=== PATIENT | female | born 1950 | race Caucasian/White ===

== ENCOUNTER 2019-02-09 16:01 | Emergency (ER) | payer MEDICARE ==
[~2019-02-09] VITALS: Ht 162.6 cm; Wt 86.2 kg
[~2019-02-09 16:01] MED LIST: ALPR.5T PO; CARV6.252 PO; CLON1PAT14; DICY10CA26 PO; EZET10TA5; FENO135C PO; FLC100T1 PO; HCT25T PO; NEBI2.5T5; NF-ESOM40C; NITR100C3 PO; NYST1000 PO; PHEN16.297 PO; PRM25T PO; SIMV10TA3 PO; [UNRECOGNIZED DRUG - REMARK]; bystolic; clonidine; nexium; zetia
[2019-02-09] MEDS ORDERED: ONDANSETRON 4 MG/2 ML (SDV) Z0FRAN IVP ONE ×2 (16:15→20:45)
[2019-02-09] MEDS: NS IV 1000 ML 1,000 ML IV SCH ×2 (16:20→17:20)
--- NOTE | 2019-02-09 16:37 | ED Abdominal Pain ---
General Stated Complaint: ABD PAIN, NAUSEA, VOMITING, LOOSE STOOLS Source of Information: Patient, Family Exam Limitations: No Limitations (CHRISTINA AGUILAR MD) History of Present Illness Date Seen by Provider: Feb 09, 2019 Time Seen by Provider: 16:33 Initial Comments 68-year-old white female presents with a complaint of 10 days of progressive dysuria and back pain. In addition patient has had nausea and vomiting. Her stools have been loose. The patient has had a kidney transplant. He's had previous pancreatitis. (CHRISTINA AGUILAR MD) Allergies and Home Medications Allergies Coded Allergies: amlodipine (Verified Allergy, Unknown, 02/09/19) Home Medications Alprazolam 0.5 Mg Tablet, 0.5 MG PO Q6H PRN, (Reported) Carvedilol 6.25 Mg Tablet, 12.5 MG PO BID, (Reported) Patient Home Medication List Home Medication List Reviewed: Yes (CHRISTINA AGUILAR MD) Review of Systems Review of Systems Constitutional: see HPI, chills, fever, malaise EENTM: No Blurred Vision, No Ear Pain Respiratory: Denies Cough Cardiovascular: Denies Chest Pain Gastrointestinal: Abdominal Pain, Diarrhea, Nausea, Vomiting Genitourinary: Burning, Frequency, Flank Pain Musculoskeletal: see HPI, back pain Skin: No rash Psychiatric/Neurological: No Symptoms Reported Endocrine: No Symptoms Reported Hematologic/Lymphatic: No Symptoms Reported (CHRISTINA AGUILAR MD) Past Tazxgxm-Gbyapn-[id number] Hx Past Med/Social Hx: Reviewed Nursing Past Med/Soc Hx (CHRISTINA AGUILAR MD) Patient Social History Recent Foreign Travel: No Contact w/Someone Who Travel: No (CHRISTINA AGUILAR MD) Past Medical History Reproductive Disorders: No (CHRISTINA AGUILAR MD) Physical Exam Vital Signs Vital Signs - First Documented 02/09/19 16:10 Temp 98.7 Pulse 88 Resp 16 B/P (MAP) 143/68 (93) Pulse Ox 93 O2 Delivery Room Air (MEGAN ULLOA MD) Vital Signs Capillary Refill : (CHRISTINA AGUILAR MD) Height/Weight/BMI Height: '" Weight: lbs. oz. kg; BMI Method: General Appearance: WD/WN, mild distress HEENT: normal ENT inspection Neck: full range of motion, supple Respiratory: lungs clear Cardiovascular: regular rate, rhythm Gastrointestinal: tenderness (diffuse) Extremities: normal range of motion, non-tender Back: normal inspection Neurologic/Psychiatric: no motor/sensory deficits, alert, normal mood/affect Skin: normal color, warm/dry; No rash (CHRISTINA AGUILAR MD) Gastrointestinal: tenderness (diffuse) (MEGAN ULLOA MD) Focused Exam Sepsis Stage: Sepsis Possible Source: Genitouriary Lactate Level 02/09/19 17:15: Lactic Acid Level 2.11*H (MEGAN ULLOA MD) Time of Focused Exam: 18:45 Respiratory: Lungs Clear, Normal Breath Sounds, No Accessory Muscle Use Cardiovascular: Regular Rate, Rhythm, Normal Peripheral Pulses Capillary Refill: Less Than 3 Seconds Skin: normal color, warm/dry Lactic Acid Level Laboratory Tests Test 02/09/19 17:15 Lactic Acid Level 2.11 MMOL/L (0.50-2.00) *H (MEGAN ULLOA MD) Within 3hrs of presentation: Admin fluids, Blood cultures prior to ABX's, Focus exam, Lactate level (MEGAN ULLOA MD) Progress/Results/Core Measures Results/Orders Lab Results Laboratory Tests Test 02/09/19 17:15 02/09/19 18:10 Range/Units White Blood Count 11.6 H 4.3-11.0 10^3/uL Red Blood Count 4.51 4.35-5.85 10^6/uL Hemoglobin 12.9 11.5-16.0 G/DL Hematocrit 39 35-52 % Mean Corpuscular Volume 86 80-99 FL Mean Corpuscular Hemoglobin 29 25-34 PG Mean Corpuscular Hemoglobin Concent 33 32-36 G/DL Red Cell Distribution Width 14.1 10.0-14.5 % Platelet Count 93 L 130-400 10^3/uL Mean Platelet Volume 10.8 H 7.4-10.4 FL Neutrophils (%) (Auto) 77 H 42-75 % Lymphocytes (%) (Auto) 13 12-44 % Monocytes (%) (Auto) 10 0-12 % Eosinophils (%) (Auto) 0 0-10 % Basophils (%) (Auto) 0 0-10 % Neutrophils # (Auto) 8.9 H 1.8-7.8 X 10^3 Lymphocytes # (Auto) 1.6 1.0-4.0 X 10^3 Monocytes # (Auto) 1.1 H 0.0-1.0 X 10^3 Eosinophils # (Auto) 0.0 0.0-0.3 10^3/uL Basophils # (Auto) 0.0 0.0-0.1 10^3/uL Sodium Level 136 135-145 MMOL/L Potassium Level 3.9 3.6-5.0 MMOL/L Chloride Level 95 L 98-107 MMOL/L Carbon Dioxide Level 25 21-32 MMOL/L Anion Gap 16 H 5-14 MMOL/L Blood Urea Nitrogen 18 7-18 MG/DL Creatinine 1.03 0.60-1.30 MG/DL Estimat Glomerular Filtration Rate 53 BUN/Creatinine Ratio 17 Glucose Level 233 H 70-105 MG/DL Lactic Acid Level 2.11 *H 0.50-2.00 MMOL/L Calcium Level 10.1 8.5-10.1 MG/DL Corrected Calcium 9.9 8.5-10.1 MG/DL Total Bilirubin 1.6 H 0.1-1.0 MG/DL Aspartate Amino Transf (AST/SGOT) 17 5-34 U/L Alanine Aminotransferase (ALT/SGPT) 28 0-55 U/L Alkaline Phosphatase 68 40-136 U/L Total Protein 6.8 6.4-8.2 GM/DL Albumin 4.2 3.2-4.5 GM/DL Lipase 20 8-78 U/L Urine Color YELLOW Urine Clarity CLOUDY H Urine pH 6.0 5-9 Urine Specific [place] 1.015 L 1.016-1.022 Urine Protein NEGATIVE NEGATIVE Urine Glucose (UA) NEGATIVE NEGATIVE Urine Ketones NEGATIVE NEGATIVE Urine Nitrite POSITIVE H NEGATIVE Urine Bilirubin NEGATIVE NEGATIVE Urine Urobilinogen 0.2 NORMAL MG/DL Urine Leukocyte Esterase 1+ H NEGATIVE Urine RBC (Auto) 2+ H NEGATIVE Urine RBC 5-10 H /HPF Urine WBC 50-100 H /HPF Urine Squamous Epithelial Cells NONE /HPF Urine Crystals NONE /LPF Urine Bacteria 4+ /HPF Urine Casts NONE /LPF Urine Mucus NEGATIVE /LPF Urine Culture Indicated YES (MEGAN ULLOA MD) My Orders Orders - MEGAN ULLOA MD Ns Iv 1000 Ml (Sodium Chloride 0.9%) (02/09/19 19:00) Ciprofloxacin Iv 400mg/200ml (Cipro Iv S (02/09/19 19:30) Ns Iv 1000 Ml (Sodium Chloride 0.9%) (02/09/19 19:30) Morphine Injection (Morphine Injection (02/09/19 19:27) Vancomycin Injection (Vancomycin Injecti (02/09/19 20:00) Piperacillin/Tazobactam (Bulk) (Zosyn In (02/09/19 20:00) Ondansetron Injection (Zofran Injectio (02/09/19 20:45) Acetaminophen Tablet (Tylenol Tablet) (02/09/19 20:45) Piperacillin Sodium/Tazobactam (Zosyn Vi (02/09/19 20:46) Water (Sterile) For Injection (Sterile W (02/09/19 20:46) Ns (Ivpb) (Sodium Chloride 0.9% Ivpb Bag (02/09/19 20:46) Vancomycin Injection (Vancomycin Injecti (02/09/19 21:20) Water (Sterile) For Injection (Sterile W (02/09/19 21:20) Ns (Ivpb) (Sodium Chloride 0.9%) (02/09/19 21:20) (MEGAN ULLOA MD) Medications Given in ED Current Medications Medications Dose Ordered Sig/Omid Route Start Time Stop Time Status Last Admin Dose Admin Acetaminophen 1,000 mg ONCE ONCE PO 02/09/19 20:45 02/09/19 20:46 DC 02/09/19 21:32 1,000 MG Ciprofloxacin/ Dextrose 200 ml @ 200 mls/hr ONCE ONCE IV 02/09/19 19:30 02/09/19 20:29 DC 02/09/19 19:41 200 MLS/HR Ondansetron HCl 4 mg ONCE ONCE IVP 02/09/19 16:15 02/09/19 16:16 DC 02/09/19 17:25 4 MG Ondansetron HCl 4 mg ONCE ONCE IVP 02/09/19 20:45 02/09/19 20:46 DC 02/09/19 20:42 4 MG Piperacillin Sod/ Tazobactam Sod 4.5 gm/Sodium Chloride 120 ml @ 240 mls/hr ONCE ONCE IV 02/09/19 20:00 02/09/19 20:29 DC 02/09/19 21:00 240 MLS/HR (MEGAN ULLOA MD) Vital Signs/I&O 02/09/19 02/09/19 02/09/19 16:10 21:32 21:43 Temp 98.7 101.5 101.5 Pulse 88 115 Resp 16 16 B/P (MAP) 143/68 (93) 139/57 (84) Pulse Ox 93 94 O2 Delivery Room Air 02/10/19 00:00 Intake Total 3320 ml Balance 3320 ml (MEGAN ULLOA MD) Progress Progress Note #1: Time: 18:45 Progress Note I assumed care of the patient from Dr. Aguilar at shift change. Pt had labs coming back showing that she had elevated WBC count and mild elevation of her Lactic acid to 2.11. Her urine also came back showing 4+ bacteria with 50-100 WBC and Nitrites consistent with UTI. Considering that she is a kidney transplant patient and is immunocompromised will give antibiotics and anticipate transfer to [place] provided her Nephrology doctors there are ok with managing her infected transplanted kidney. Her transplant was done in 2016 at [facility], but she has been following with Dr. Nuñez at [facility] in [place] since then for managing her kidney. Progress Note #2: Time: 19:25 Progress Note page placed for Nephrology and Dr. Arias is the immigration specialist doctor for [facility] covering for Dr. Nuñez. She called back and since pt has been stable hemodynamically and has a stable Cr of 1.04 she felt if the patient was wanting to come to [place] we could get her transferred down here. I had wanted to make sure the Nephrology service was ok with consulting on her care before speaking with the Hospitalist service for transfer. That way if they felt she needed the actual Transplant service hospital instead she would not have to immediately be transferred back up to from [place]. She did request the antibiotic coverage be broadened to Vancomycin and Zosyn from just the Cipro that was initially ordered. After speaking with Dr. Arias, Dr. Cuevas with the Hospitalist service was paged for the transfer. Progress Note #3: Time: 19:[address] Cuevas called back and accepted the patient in transfer. Will continue with IVF and antibiotics. Progress Note #4: Time: 20:30 Progress Note Her Fever went up to 101.7F and her heart rate went up to 117 so she was getting additional IVF bolus as well as a dose of acetaminophen was ordered. She did have some nausea as the antibiotics were infusing so a repeat dose of Zofran was given. Will plan to continue IV fluids with the antibiotics as she is transferred to [place]. (MEGAN ULLOA MD) Departure Impression Primary Impression: Cystitis without hematuria Additional Impression: Kidney transplant infection Disposition: 02 XFER SHT-TRM HOSP Condition: Stable Transfer Time Spoke to Accepting Phy: 19:[address] Cuevas with Hospitalist service accepted pt for transfer and I spoke with Dr. Arias with Nephrology who is covering for Dr. Nuñez to make sure that they are comfortable consulting on the patient since she is a kidney transplant patient. Dr. Arias did request the patient get broad spectrum antibiotic coverage of Vancomycin as well as Zosyn instead of just the Cipro based on her last urine culture from 2017. Transfer Facility: [facility] in [facility], [place], operated by [facility] Method of Transfer: EMS (MEGAN ULLOA MD) Departure-Patient Inst. Referrals: GARRETT BERG MD (PCP) Primary Care Physician CHRISTINA AGUILAR MD Feb 09, 2019 16:37 MEGAN ULLOA MD Feb 09, 2019 19:47
--- NOTE | 2019-02-09 17:15 | NUR ---
FROM [id number] IV ATTEMPTS TRIED IN BILATERAL PERIPHERAL SITES; 4 ATTEMPTS PER THIS [employer] TRAFFIC CONTROL SPECIALIST (AC'S, HANDS), 2 ATTEMPTS PER INO JOHN (FAILED IN LEFT EJ AND RAC). STARTED PER DR RUIZ TO RIGHT EJ WITH SOME DIFFICULTY THREADING INITIALLY. LABS DRAWN AT THIS TIME. PT WITH HYSTERONICS, HYPERVENTILATING AND BECOMING NAUSEATED.
[2019-02-09 17:35] LABS: HEMATOCRIT 39 % (35-52); HEMOGLOBIN 12.9 G/DL (11.5-16.0); MEAN CORPUSCULAR HEMOGLOBIN 29 PG (25-34); MEAN CORPUSCULAR HGB CONC 33 G/DL (32-36); MEAN CORPUSCULAR VOLUME 86 FL (80-99); PLATELET COUNT 93 10^3/uL (130-400); RED CELL DISTRIBUTION WIDTH 14.1 % (10.0-14.5); WHITE BLOOD COUNT 11.6 10^3/uL (4.3-11.0)
[2019-02-09 17:36] LABS: BASOPHILS % (AUTO) 0 % (0-10); EOSINOPHILS % (AUTO) 0 % (0-10); LYMPHOCYTES # (AUTO) 1.6 X 10^3 (1.0-4.0); LYMPHOCYTES % (AUTO) 13 % (12-44); MEAN PLATELET VOLUME 10.8 FL (7.4-10.4); MONOCYTES # (AUTO) 1.1 X 10^3 (0.0-1.0); MONOCYTES % (AUTO) 10 % (0-12); NEUTROPHILS # (AUTO) 8.9 X 10^3 (1.8-7.8); NEUTROPHILS % (AUTO) 77 % (42-75)
[2019-02-09 17:54] LABS: BILIRUBIN,TOTAL 1.6 MG/DL (0.1-1.0); CALCIUM 10.1 MG/DL (8.5-10.1); CREATININE SERUM 1.03 MG/DL (0.60-1.30); POTASSIUM 3.9 MMOL/L (3.6-5.0); TOTAL PROTEIN 6.8 GM/DL (6.4-8.2)
[2019-02-09 17:55] LABS: ALBUMIN 4.2 GM/DL (3.2-4.5)
[2019-02-09 18:26] LABS: CLARITY,URINE CLOUDY; COLOR,URINE YELLOW; PROTEIN,URINE NEGATIVE (NEGATIVE)
[2019-02-09 18:27] LABS: BACTERIA,URINE 4+ /HPF; BILIRUBIN,URINE NEGATIVE (NEGATIVE); GLUCOSE, URINE (UA) NEGATIVE (NEGATIVE); KETONES,URINE NEGATIVE (NEGATIVE); LEUKOCYTE ESTERASE ,URINE 1+ (NEGATIVE); NITRITE,URINE POSITIVE (NEGATIVE); UROBILINOGEN,URINE 0.2 MG/DL (NORMAL); WBC,URINE 50-100 /HPF
[2019-02-09] MEDS ORDERED: NS IV 1000 ML 1,000 ML IV SCH ×2 (19:00→19:30)
[2019-02-09] MEDS ORDERED: cefTRIAXone FOR IV USE 1,000 MG in WATER (STERILE) FOR INJECTION 10 ML IV ONE (19:00)
--- NOTE | 2019-02-09 19:12 | NUR ---
assumed care of this patient at this time. will continue to monitor
[2019-02-09] MEDS ORDERED: morphine INJ 10 MG/ML 1ML (SYR OR VIAL) IVP STA (19:27)
[2019-02-09] MEDS ORDERED: CIPROFLOXACIN IV 400MG/200ML 200 ML IV ONE (19:30)
[2019-02-09] MEDS ORDERED: VANCOMYCIN INJECTION 1,000 MG in NS (IVPB) 250 ML IV SCH (20:00)
[2019-02-09] MEDS ORDERED: PIPERACILLIN/TAZOBACTAM (BULK) 4.5 GM in NS (IVPB) 100 ML IV ONE (20:00)
[2019-02-09] MEDS ORDERED: ACETAMINOPHEN 500 MG TAB (TYLENOL) PO ONE (20:45)
[2019-02-09] MEDS ORDERED: PIPERACILLIN/TAZO 4.5 GM VIAL (ZOSYN) IV ONE (20:46)
[2019-02-09] MEDS ORDERED: NS (IVPB) 100 ML ONE (20:46)
[2019-02-09] MEDS ORDERED: WATER (STERILE) FOR INJECTION 20 ML ONE ×2 (20:46→21:20)
[2019-02-09] MEDS ORDERED: TEMAZEPAM 15 MG (21:09)
[2019-02-09] MEDS ORDERED: ATORVASTATIN TAB 40MG (21:09)
[2019-02-09] MEDS ORDERED: PREDNISONE TAB 5MG (21:09)
[2019-02-09] MEDS ORDERED: FUROSEMIDE TAB 40MG (21:09)
[2019-02-09] MEDS ORDERED: LISINOPRIL 20 MG (21:09)
[2019-02-09] MEDS ORDERED: VANCOMYCIN 1000 MG/VIAL ONE (21:20)
[2019-02-09] MEDS ORDERED: NS (IVPB) 250 ML ONE (21:20)
[2019-02-09 21:43] VITALS: BP 139/57
== END 2019-02-09 21:43 | disposition short-term general hospital (02) ==
LOC: EDUNIT# 16:01 → ER FS 16:03
DX: N30.90 Cystitis, unspecified without hematuria (principal); T86.13 Kidney transplant infection; Z88.8 Allergy status to other drugs, medicaments and biological substances; Z94.0 Kidney transplant status; Z87.19 Personal history of other diseases of the digestive system
CPT/HCPCS: 36415; 51701; 80053; 81000; 83605; 83690; 85025; 87040; 87077; 87088

== ENCOUNTER → 2019-02-17 | Outpatient (CLI) | payer MEDICARE ==
[~2019-02-17] MED LIST changes: +ATORVASTATIN TAB 40MG; +FUROSEMIDE TAB 40MG; +LISINOPRIL 20 MG; +PREDNISONE TAB 5MG; +TEMAZEPAM 15 MG
--- NOTE | 2019-02-17 11:44 | Diagnostic Imaging Report ---
INDICATION: Right hip pain, no known injury. TECHNIQUE: 2 views right hip 11:24 AM. CORRELATION STUDY: None FINDINGS: There is mild/moderate joint space narrowing at the hip. The femoral head and acetabular relationship are maintained. Bony trabecular pattern intact. Multiple clips over the right hemipelvis. IMPRESSION: 1. Negative for acute findings of the right hip. Mild/moderate joint space narrowing with degenerative changes present. Dictated by: Dictated on workstation # [id number]
== END ==
LOC: RAD FS 11:14
PROVIDERS: ATTEND Family Medicine
DX: M16.11 Unilateral primary osteoarthritis, right hip (principal)
CPT/HCPCS: 73502

== ENCOUNTER → 2019-02-26 | Outpatient (CLI) | payer MEDICARE ==
--- NOTE | 2019-02-26 11:39 | Diagnostic Imaging Report ---
Clinical indication: Patient with right hip pain, low back pain with right-sided sciatica. Exam: X-ray of the lumbar spine, AP and lateral views. Comparison: None. Findings: There is no acute lumbar spine fracture or dislocation. There is subtle left curvature of the lumbar spine. There is mild to moderately hypertrophic spurs seen throughout the lumbar spine. There is severe loss of intervertebral disc height at the L5-S1 level and mild loss of intervertebral disc height at the L2-L3 and L3-L4 levels. There is lumbar spine facet arthropathy. Vascular calcifications are seen overlying the abdomen. The sacroiliac joint show mild sclerosis on the right side. There are surgical clips overlying the right pelvis region. Surgical clips are seen overlying the right upper quadrant which could be related to cholecystectomy changes. Impression: 1: There is no acute lumbar spine fracture or dislocation. 2: There is lumbar spine degenerative disease, as described above. Dictated by: Dictated on workstation # [id number]
== END ==
LOC: RAD FS 11:13
PROVIDERS: ATTEND Physician Assistant
DX: M43.8X6 Other specified deforming dorsopathies, lumbar region (principal); M47.816 Spondylosis without myelopathy or radiculopathy, lumbar region; M51.17 Intervertebral disc disorders with radiculopathy, lumbosacral region; M46.86 Other specified inflammatory spondylopathies, lumbar region; M25.80 Other specified joint disorders, unspecified joint; I99.8 Other disorder of circulatory system; Z90.49 Acquired absence of other specified parts of digestive tract
CPT/HCPCS: 72100

== ENCOUNTER → 2019-03-09 | Outpatient (CLI) | payer MEDICARE, OTHER ==
[2019-03-09 16:08] LABS: PHOSPHORUS 2.8 MG/DL (2.3-4.7)
[2019-03-10 08:11] LABS: MAGNESIUM 1.8 MG/DL (1.8-2.4)
== END ==
LOC: LAB FS 09:13
PROVIDERS: ATTEND Internal Medicine Endocrinology, Diabetes & Metabolism
DX: E83.52 Hypercalcemia (principal); E04.2 Nontoxic multinodular goiter
CPT/HCPCS: 36415; 83735; 83970; 84100

== ENCOUNTER 2020-09-07 11:31 | Inpatient (IN) | payer MEDICARE, OTHER ==
[~2020-09-07] VITALS: Ht 162 cm; Wt 86.3 kg
[~2020-09-07 11:31] MED LIST changes: -FUROSEMIDE TAB 40MG; +FUROSEMIDE TAB 40MG PO; -PREDNISONE TAB 5MG; +PREDNISONE TAB 5MG PO
[2020-09-07] MEDS ORDERED: FAMOTIDINE 20MG/2ML IV (PEPCID) IV STA (12:12)
[2020-09-07] MEDS ORDERED: NS IV 1000 ML 1,000 ML IV SCH (12:12)
[2020-09-07] MEDS ORDERED: ACETAMINOPHEN 325 MG TABLET PO ONE (12:15)
[2020-09-07] MEDS ORDERED: ONDANSETRON 4 MG/2 ML (SDV) Z0FRAN IV ONE (12:15)
--- NOTE | 2020-09-07 12:21 | ED General ---
General Chief Complaint: Abdominal/GI Problems Stated Complaint: COVID+, VOMITING, DIARRHEA, COUGH Nursing Triage Note: PT AMBULATE TO ROOM 09 WITH C/O N/V/D. PT REPORTS SHE IS COVID POS. PT STATES THAT SHE IS UNABLE TO EAT OR DRINK. PT REPORTS FEVER AT HOME. PT STATES THAT SHE WAS TOLD TO COME TO THE ED SINCE SHE WAS SICK. Nursing Sepsis Screen: Possible Severe Sepsis Risk History of Present Illness Date Seen by Provider: Sep 07, 2020 Time Seen by Provider: 12:03 Initial Comments 70-year-old female presents with cough, generalized malaise, nausea, vomiting, diarrhea. She reports that she's having a hard time eating or drinking anything. Patient started having symptoms about 5-6 days ago was tested positive for COVID 3 days ago. Patient doesn't complain of any shortness of breath she does reports she did have some fevers at home. Allergies and Home Medications Allergies Coded Allergies: amlodipine (Verified Allergy, Unknown, 02/09/19) Home Medications Alprazolam 0.5 Mg Tablet, 0.5 MG PO Q6H PRN, (Reported) Carvedilol 6.25 Mg Tablet, 12.5 MG PO BID, (Reported) Patient Home Medication List Home Medication List Reviewed: Yes Review of Systems Review of Systems Constitutional: fever, malaise Respiratory: cough; No short of breath Cardiovascular: No chest pain, No palpitations Gastrointestinal: No abdominal pain; diarrhea, nausea, vomiting Genitourinary: no symptoms reported Musculoskeletal: no symptoms reported Skin: no symptoms reported Psychiatric/Neurological: No Symptoms Reported Hematologic/Lymphatic: No Symptoms Reported Past Jsugjgr-Osjjzm-Thfrkt Hx Past Med/Social Hx: Reviewed Nursing Past Med/Soc Hx Patient Social History Alcohol Use: Denies Use Recreational Drug Use: No Smoking Status: Never a Smoker 2nd Hand Smoke Exposure: No Recent Foreign Travel: No Contact w/Someone Who Travel: No Recent Infectious Disease Expo: No Recent Hopitalizations: No Physical Abuse: No Sexual Abuse: No Mistreated: No Fear: No Seasonal Allergies Seasonal Allergies: No Past Medical History Surgeries: Yes (PERITONEAL CATHETER, PARATHYROID TUMOR REMOVED) Gallbladder, Kidney Transplant Respiratory: No Cardiac: Yes Hypertension Neurological: No Reproductive Disorders: No Genitourinary: Yes Renal Failure Gastrointestinal: Yes Musculoskeletal: No Endocrine: Yes (TUMOR REMOVED, ANOTHER TUMOR PRESENT) Parathyroid Disease HEENT: No Cancer: No Psychosocial: No Blood Disorders: No Physical Exam Vital Signs Vital Signs - First Documented 09/07/20 12:05 Temp 38.4 Pulse 98 Resp 18 B/P (MAP) 117/72 (87) O2 Delivery Room Air Capillary Refill : Less Than 3 Seconds Height, Weight, BMI Height: 5'4.00" Weight: 190lbs. 0oz. 86.872091on; 33.00 BMI Method:Stated General Appearance: Other (looks as if she does not feel good but no distress) HEENT: Normal ENT Inspection Neck: Non Tender, Supple Respiratory: Lungs Clear, Normal Breath Sounds, No Accessory Muscle Use Cardiovascular: Regular Rate, Rhythm, No Edema Gastrointestinal: Non Tender, Soft Extremity: Normal Capillary Refill, Normal Inspection Neurologic/Psychiatric: Alert, Oriented x3, No Motor/Sensory Deficits, Normal Mood/Affect, aerial hurricane hunter II-XII Norm as Tested Skin: Normal Color, Warm/Dry Focused Exam Lactate Level 09/07/20 12:30: Lactic Acid Level 1.53 Lactic Acid Level Laboratory Tests Test 09/07/20 12:30 Lactic Acid Level 1.53 MMOL/L (0.50-2.00) Progress/Results/Core Measures Suspected Sepsis Recent Fever Within 48 Hours: Yes Infection Criteria Present: Documented Infection New/Unexplained Altered Menta: No Sepsis Screen: Possible Severe Sepsis Risk SIRS Temperature: Pulse: 98 Respiratory Rate: 18 Laboratory Tests 09/07/20 12:30: White Blood Count 8.1 Blood Pressure 117 /72 Mean: 87 09/07/20 12:30: Lactic Acid Level 1.53 Laboratory Tests 09/07/20 12:30: Creatinine 1.55H, INR Comment 1.1, Platelet Count 100L, Total Bilirubin 1.1H Results/Orders Lab Results Laboratory Tests Test 09/07/20 12:30 Range/Units White Blood Count 8.1 4.3-11.0 10^3/uL Red Blood Count 4.91 3.80-5.11 10^6/uL Hemoglobin 14.0 11.5-16.0 g/dL Hematocrit 43 35-52 % Mean Corpuscular Volume 87 80-99 fL Mean Corpuscular Hemoglobin 29 25-34 pg Mean Corpuscular Hemoglobin Concent 33 32-36 g/dL Red Cell Distribution Width 14.2 10.0-14.5 % Platelet Count 100 L 130-400 10^3/uL Mean Platelet Volume 11.2 9.0-12.2 fL Immature Granulocyte % (Auto) 2 % Neutrophils (%) (Auto) 64 42-75 % Lymphocytes (%) (Auto) 24 12-44 % Monocytes (%) (Auto) 11 0-12 % Eosinophils (%) (Auto) 0 0-10 % Basophils (%) (Auto) 0 0-10 % Neutrophils # (Auto) 5.2 1.8-7.8 10^3/uL Lymphocytes # (Auto) 1.9 1.0-4.0 10^3/uL Monocytes # (Auto) 0.9 0.0-1.0 10^3/uL Eosinophils # (Auto) 0.0 0.0-0.3 10^3/uL Basophils # (Auto) 0.0 0.0-0.1 10^3/uL Immature Granulocyte # (Auto) 0.1 0.0-0.1 10^3/uL Prothrombin Time 14.1 12.2-14.7 SEC INR Comment 1.1 0.8-1.4 Activated Partial Thromboplast Time 29 24-35 SEC Fibrinogen 468 221-496 MG/DL Sodium Level 138 135-145 MMOL/L Potassium Level 3.4 L 3.6-5.0 MMOL/L Chloride Level 99 98-107 MMOL/L Carbon Dioxide Level 23 21-32 MMOL/L Anion Gap 16 H 5-14 MMOL/L Blood Urea Nitrogen 28 H 7-18 MG/DL Creatinine 1.55 H 0.60-1.30 MG/DL Estimat Glomerular Filtration Rate 33 BUN/Creatinine Ratio 18 Glucose Level 245 H 70-105 MG/DL Lactic Acid Level 1.53 0.50-2.00 MMOL/L Calcium Level 9.3 8.5-10.1 MG/DL Corrected Calcium 9.1 8.5-10.1 MG/DL Total Bilirubin 1.1 H 0.1-1.0 MG/DL Aspartate Amino Transf (AST/SGOT) 33 5-34 U/L Alanine Aminotransferase (ALT/SGPT) 26 0-55 U/L Alkaline Phosphatase 52 40-136 U/L Lactate Dehydrogenase 260 H 125-220 U/L Troponin I < 0.028 <0.028 NG/ML C-Reactive Protein High Sensitivity 2.32 H 0.00-0.50 MG/DL Total Protein 7.4 6.4-8.2 GM/DL Albumin 4.2 3.2-4.5 GM/DL My Orders Orders - ZEYNEP HADDAD DO Vital Signs: Every 4 Hours (Or (09/07/20 12:12) Monitor-Rhythm Ecg Trace Only (09/07/20 12:12) Cbc With Automated Diff (09/07/20 12:12) Comprehensive Metabolic Panel (09/07/20 12:12) Ferritin (09/07/20 12:12) LDH (09/07/20 12:12) Hs C Reactive Protein (09/07/20 12:12) Troponin I (09/07/20 12:12) Lactic Acid Analyzer (09/07/20 12:12) Protime With Inr (09/07/20 12:12) Partial Thromboplastin Time (09/07/20 12:12) Fibrinogen (09/07/20 12:12) Ekg Tracing (09/07/20 12:12) Chest 1 View, Ap/Pa Only (09/07/20 12:12) Ns Iv 1000 Ml (Sodium Chloride 0.9%) (09/07/20 12:12) Acetaminophen Tablet/Caplet (Tylenol T (09/07/20 12:15) Ondansetron Injection (Zofran Injectio (09/07/20 12:15) Famotidine Injection (Pepcid Injection) (09/07/20 12:12) Dexamethasone Injection (Decadron Inje (09/07/20 12:15) Medications Given in ED Current Medications Medications Dose Ordered Sig/Omid Route Start Time Stop Time Status Last Admin Dose Admin Acetaminophen 650 mg ONCE ONCE PO 09/07/20 12:15 09/07/20 12:16 DC 09/07/20 12:34 650 MG Dexamethasone Sodium Phosphate 10 mg ONCE ONCE IV 09/07/20 12:15 09/07/20 12:16 DC 09/07/20 12:33 10 MG Ondansetron HCl 4 mg ONCE ONCE IV 09/07/20 12:15 09/07/20 12:16 DC 09/07/20 12:33 4 MG Vital Signs/I&O 09/07/20 09/07/20 12:05 12:34 Temp 38.4 38.3 Pulse 98 Resp 18 B/P (MAP) 117/72 (87) O2 Delivery Room Air Capillary Refill : Less Than 3 Seconds Blood Pressure Mean: 87 Progress Note : Time: 13:25 Progress Note Patient with negative chest x-ray, she does have some mild dehydration, I will admit her for dehydration, she does have a small oxygen need with her O2 right around 90%. Place her on a 1-2 L of oxygen. Give her gentle IV rehydration. Discussed with Dr. Dickerson who is in agreement with admission. ECG Initial ECG Impression Date: Sep 07, 2020 Initial ECG Impression Time: 12:42 Initial ECG Rhythm: Normal Sinus Initial ECG Intervals: QT (450,qtc 566) Initial ECG Impression: Nonspecific Changes Comment sinus rhythm, prolong qtc, left ventricular hypertophy, non specific changes Diagnostic Imaging Diagonstic Imaging: Xray Plain Films/CT/US/NM/MRI: chest Comments [facility] [place], [place] NAME: PAOLA [facility] REC#: [id number] PT STATUS: REG ER : 1950 PHYSICIAN: ZEYNEP HADDAD DO ADMIT DATE: 09/07/20/ER Draft Date of Exam:09/07/20 CHEST 1 VIEW, AP/PA ONLY INDICATION: Nausea, vomiting and diarrhea COMPARISON: 02/18/2012 FINDINGS: The heart size and vascularity are within normal limits. No focal infiltrate, effusion or pneumothorax. IMPRESSION: No acute appearing abnormality. Dictated on workstation # [id number] Dict: 09/07/20 1247 Trans: 09/07/20 1250 [facility] [id number] Interpreted by: JOYCE AVENDAÑO Electronically signed by: Reviewed: Reviewed by Me, Reviewed/Discussed Departure Communication (Admissions) Time/Spoke to Admitting Phy: 13:26 Impression Primary Impression: Coronavirus infection Additional Impressions: Dehydration Nausea vomiting and diarrhea Disposition: ADMITTED INPATIENT Condition: Stable Admissions Decision to Admit Reason: Admit from ER (General) Decision to Admit/Date: Sep 07, 2020 Time/Decision to Admit Time: 13:26 Departure-Patient Inst. Referrals: GARRETT BERG MD (PCP/Family) Primary Care Physician ZEYNEP HADDAD DO Sep 07, 2020 12:21
[2020-09-07 12:40] LABS: BASOPHILS % (AUTO) 0 % (0-10); EOSINOPHILS % (AUTO) 0 % (0-10); MEAN CORPUSCULAR VOLUME 87 fL (80-99)
[2020-09-07 12:41] LABS: HEMATOCRIT 43 % (35-52); LYMPHOCYTES # (AUTO) 1.9 10^3/uL (1.0-4.0); LYMPHOCYTES % (AUTO) 24 % (12-44); MEAN CORPUSCULAR HEMOGLOBIN 29 pg (25-34); MEAN CORPUSCULAR HGB CONC 33 g/dL (32-36); MEAN PLATELET VOLUME 11.2 fL (9.0-12.2); MONOCYTES # (AUTO) 0.9 10^3/uL (0.0-1.0); MONOCYTES % (AUTO) 11 % (0-12); NEUTROPHILS # (AUTO) 5.2 10^3/uL (1.8-7.8); NEUTROPHILS % (AUTO) 64 % (42-75); PLATELET COUNT 100 10^3/uL (130-400); WHITE BLOOD COUNT 8.1 10^3/uL (4.3-11.0)
--- NOTE | 2020-09-07 12:50 | Diagnostic Imaging Report ---
INDICATION: Nausea, vomiting and diarrhea COMPARISON: 02/18/2012 FINDINGS: The heart size and vascularity are within normal limits. No focal infiltrate, effusion or pneumothorax. IMPRESSION: No acute appearing abnormality. Dictated by: Dictated on workstation # [id number]
[2020-09-07 12:52] LABS: ALBUMIN 4.2 GM/DL (3.2-4.5); CHLORIDE 99 MMOL/L (98-107); POTASSIUM 3.4 MMOL/L (3.6-5.0); SODIUM 138 MMOL/L (135-145)
[2020-09-07 12:53] LABS: CALCIUM 9.3 MG/DL (8.5-10.1)
[2020-09-07 12:54] LABS: GLUCOSE 245 MG/DL (70-105); TOTAL PROTEIN 7.4 GM/DL (6.4-8.2)
[2020-09-07 12:55] LABS: CARBON DIOXIDE 23 MMOL/L (21-32)
[2020-09-07 12:56] LABS: BILIRUBIN,TOTAL 1.1 MG/DL (0.1-1.0)
[2020-09-07 12:57] LABS: INR 1.1 (0.8-1.4); PROTHROMBIN TIME PATIENT 14.1 SEC (12.2-14.7)
[2020-09-07 12:58] LABS: ALKALINE PHOSPHATASE 52 U/L (40-136); CREATININE SERUM 1.55 MG/DL (0.60-1.30); GFR ESTIMATED 33
[2020-09-07 12:59] LABS: BUN/CREATININE RATIO 18
[2020-09-07 13:01] LABS: ALANINE AMINOTRANSFERASE 26 U/L (0-55)
--- NOTE | 2020-09-07 14:00 | NUR ---
ATTEMPT TO CALL REPORT
--- NOTE | 2020-09-07 14:10 | NUR ---
MENTAL HEALTH SCREENER CALLED
[2020-09-07 14:30] VITALS: BP 114/60
[2020-09-07] MEDS ORDERED: CATHETER FLUSH 10 ML SYR IV PRN (14:30)
[2020-09-07] MEDS ORDERED: PROMETHAZINE INJ 25 MG/ML (PHENERGAN) AMP IV PRN (14:30)
--- NOTE | 2020-09-07 15:15 | NUR ---
PT ADMITTED TO ROOM 432 FROM ED AT THIS TIME. A/O, PT WAS ORIENTED TO ROOM/CALL LIGHT. CALL LIGHT WITHIN REACH
[2020-09-07] MEDS: NS IV 1000 ML 1,000 ML IV SCH (15:31)
[2020-09-07 17:19] VITALS: BP 113/61
[2020-09-07] MEDS: FAMOTIDINE 20MG/2ML IV (PEPCID) IV SCH (18:00)
[2020-09-07] MEDS: ENOXAPARIN 40 MG/0.4 ML (LOVENOX) SYR SC SCH (18:00)
[2020-09-07] MEDS ORDERED: LOPERAMIDE 2 MG (IMODIUM) TABLET PO PRN (19:30)
[2020-09-07 20:46] VITALS: BP 111/66
[2020-09-08] VITALS (10 sets, daily range): BP systolic 102–158; BP diastolic 58–79
[2020-09-08 00:16] LABS: BILIRUBIN,URINE NEGATIVE (NEGATIVE); CLARITY,URINE CLEAR; COLOR,URINE YELLOW; GLUCOSE, URINE (UA) 2+ (NEGATIVE); KETONES,URINE NEGATIVE (NEGATIVE); LEUKOCYTE ESTERASE ,URINE 1+ (NEGATIVE); NITRITE,URINE NEGATIVE (NEGATIVE); PH,URINE 5.5 (5-9); PROTEIN,URINE NEGATIVE (NEGATIVE)
[2020-09-08 00:25] LABS: RBC,URINE 0-2 /HPF
[2020-09-08 00:26] LABS: AMORPHOUS SEDIMENT,UR FEW AMOR URATES /LPF; BACTERIA,URINE TRACE /HPF
[2020-09-08] MEDS: NS IV 1000 ML 1,000 ML IV SCH ×2 (02:11→06:30)
[2020-09-08] MEDS ORDERED: ALLO100T PO (03:26)
[2020-09-08] MEDS ORDERED: ATOR20TA66 PO (03:29)
[2020-09-08] MEDS ORDERED: CARV12.53 PO (03:33)
[2020-09-08] MEDS: dexAMETHasone 6 MG TAB (DECADRON) PO SCH (06:03)
[2020-09-08 06:10] LABS: BASOPHILS % (AUTO) 0 % (0-10); EOSINOPHILS % (AUTO) 0 % (0-10); HEMATOCRIT 43 % (35-52); HEMOGLOBIN 14.1 g/dL (11.5-16.0); LYMPHOCYTES # (AUTO) 1.9 10^3/uL (1.0-4.0); LYMPHOCYTES % (AUTO) 25 % (12-44); MEAN CORPUSCULAR HEMOGLOBIN 29 pg (25-34); MEAN CORPUSCULAR HGB CONC 33 g/dL (32-36); MEAN CORPUSCULAR VOLUME 87 fL (80-99); MONOCYTES # (AUTO) 0.5 10^3/uL (0.0-1.0); MONOCYTES % (AUTO) 7 % (0-12); NEUTROPHILS # (AUTO) 4.9 10^3/uL (1.8-7.8); NEUTROPHILS % (AUTO) 66 % (42-75); PLATELET COUNT 166 10^3/uL (130-400); WHITE BLOOD COUNT 7.4 10^3/uL (4.3-11.0)
[2020-09-08 06:34] LABS: ALBUMIN 4.1 GM/DL (3.2-4.5); BILIRUBIN,TOTAL 0.6 MG/DL (0.1-1.0); CALCIUM 8.6 MG/DL (8.5-10.1); CREATININE SERUM 1.34 MG/DL (0.60-1.30); MAGNESIUM 1.6 MG/DL (1.6-2.4); PHOSPHORUS 4.2 MG/DL (2.3-4.7); TOTAL PROTEIN 7.4 GM/DL (6.4-8.2)
[2020-09-08] MEDS ORDERED: cefTRIAXone FOR IV USE 1,000 MG in WATER (STERILE) FOR INJECTION 10 ML IV SCH (07:45)
[2020-09-08] MEDS ORDERED: LACTATED RINGERS 1,000 ML IV SCH (07:45)
--- NOTE | 2020-09-08 07:45 | Pulmonary Consultation ---
History of Present Illness History of Present Illness Date Seen by Provider: Sep 08, 2020 Time Seen by Provider: 07:40 Date of Admission Allergies and Home Medications Allergies Coded Allergies: amlodipine (Verified Allergy, Severe, Anaphylaxis, 09/07/20) Home Medications Allopurinol 100 Mg Tablet, 100 MG PO DAILY, (Reported) Alprazolam 0.5 Mg Tablet, 0.5 MG PO BID PRN for ANXIETY, (Reported) Atorvastatin Calcium 20 Mg Tablet, 20 MG PO HS, (Reported) Carvedilol 12.5 Mg Tablet, 12.5 MG PO BID, (Reported) [Furosemide Tab 40MG] , 40 MG PO DAILY, (Reported) TAKES 5 DAYS A WEEK [Prednisone Tab 5MG] , 5 MG PO DAILY, (Reported) Past Hngimtq-Chysyz-Cxeqqr Hx Past Med/Social Hx: Reviewed Nursing Past Med/Soc Hx Patient Social History Alcohol Use: Denies Use Recreational Drug Use: No Smoking Status: Never a Smoker 2nd Hand Smoke Exposure: No Recent Foreign Travel: No Contact w/Someone Who Travel: No Recent Infectious Disease Expo: No (has covid19) Recent Hopitalizations: No Physical Abuse: No Sexual Abuse: No Mistreated: No Fear: No Immunizations Up To Date Date of Pneumonia Vaccine: Aug 24, 2020 Date of Influenza Vaccine: Aug 24, 2020 Seasonal Allergies Seasonal Allergies: No Past Medical History Surgeries: Yes ( PARATHYROID TUMOR REMOVED) Gallbladder, Kidney Transplant Respiratory: No Cardiac: Yes Hypertension Neurological: No Reproductive Disorders: No Genitourinary: Yes Renal Failure Gastrointestinal: No Musculoskeletal: No Endocrine: Yes (TUMOR REMOVED) Parathyroid Disease HEENT: No Cancer: No Psychosocial: No Blood Disorders: No Review of Systems Time Seen by Provider: 07:45 Sepsis Event Evaluation Height, Weight, BMI Height: 5'4.00" Weight: 190lbs. 0oz. 86.054083sh; 32.88 BMI Method:Stated Exam Exam Vital Signs Date Time Temp Pulse Resp B/P (MAP) Pulse Ox O2 Delivery O2 Flow Rate FiO2 09/08/20 05:11 36.2 89 20 125/62 (83) 94 Nasal Cannula 2.00 09/08/20 04:59 09/08/20 01:00 70 09/08/20 00:02 36.6 84 19 114/65 (81) 95 Nasal Cannula 2.00 09/07/20 20:46 36.6 75 18 111/66 (81) 96 Nasal Cannula 2.00 09/07/20 20:30 96 Nasal Cannula 2.00 09/07/20 19:00 90 09/07/20 18:16 93 Room Air 09/07/20 17:19 36.1 72 20 113/61 (78) 95 Nasal Cannula 2.00 09/07/20 15:49 35.8 09/07/20 15:35 78 96 Nasal Cannula 2.00 09/07/20 15:20 78 09/07/20 15:15 96 Nasal Cannula 2.00 09/07/20 14:30 83 20 114/60 Nasal Cannula 2.00 09/07/20 14:21 81 17 144/79 97 Nasal Cannula 2.00 09/07/20 12:34 38.3 09/07/20 12:05 38.4 98 18 117/72 (87) Room Air I & O 09/08/20 07:00 Intake Total 3020 ml Output Total 550 ml Balance 2470 ml Height & Weight Height: 5'4.00" Weight: 190lbs. 0oz. 86.588711fb; 32.88 BMI Method:Stated General Appearance: Other (looks as if she does not feel good but no distress) HEENT: Normal ENT Inspection Neck: Non Tender, Supple Respiratory: Lungs Clear, Normal Breath Sounds, No Accessory Muscle Use Cardiovascular: Regular Rate, Rhythm, No Edema Capillary Refill: Less Than 3 Seconds Extremity: Normal Capillary Refill, Normal Inspection Neurologic/Psychiatric: Alert, Oriented x3, No Motor/Sensory Deficits, Normal Mood/Affect, certified fraud examiner II-XII Norm as Tested Skin: Normal Color, Warm/Dry Results Lab Laboratory Tests 09/07/20 12:30 09/08/20 05:29 Assessment/Plan Assessment/Plan COVID Pneumonia -CVP -Decadron -Influenza is negative Acute on chronic renal failure with hx of renal transplant -Monitor -WIll hold off on Remdesivir -Start IVF with LR at 100 -Start home anti-rejection meds metabolic acidosis wtih dehydration -Check LA -IVF -Monitor UTI -Start BALAJI Garcia DO Sep 08, 2020 07:45
[2020-09-08] MEDS: cefTRIAXone FOR IV USE 1,000 MG in WATER (STERILE) FOR INJECTION 10 ML IV SCH (08:52)
[2020-09-08] MEDS: LACTATED RINGERS 1,000 ML IV SCH ×2 (08:52→16:57)
[2020-09-08] MEDS: FAMOTIDINE 20MG/2ML IV (PEPCID) IV SCH (08:53)
[2020-09-08] MEDS: PANTOPRAZOLE 40 MG (PROTONIX) TAB PO SCH (10:06)
--- NOTE | 2020-09-08 10:28 | History & Physical-Hospitalist ---
History of Present Illness HPI/Chief Complaint CC: COVID-19 hypoxia HPI: This is a 70yoWF clinic patient of Dr Alexis who has a h/o kidney transplant who presents to the ER with hypoxia and ARF. Patient was dx with COVID and placed on gentle IVF and DR Rangel consulted. Patient is receiving treatment and tolerated well. O2 is now 1-2 L/min. She denies pain and home meds have been restarted. Dyspnea is about the same as admit. Source: patient Date Seen 09/08/20 Time Seen by a Provider: 10:00 Attending Physician Naomi Dickerson Pankaj K MD Referring Physician Date of Admission Sep 07, 2020 at 13:40 Home Medications & Allergies Home Medications Reviewed patient Home Medication Reconciliation performed by pharmacy medication reconciliations ground control approach technician and/or nursing. Patients Allergies have been reviewed. Allergies Allergies Coded Allergies amlodipine (Verified Allergy, Severe, Anaphylaxis, 09/07/20) Past Smljdhp-Ittqub-Djrwqm Hx Past Med/Social Hx: Reviewed Nursing Past Med/Soc Hx, Reviewed and Corrections made Patient Social History Marrital Status: Employed/Student: retired Alcohol Use: Denies Use Recreational Drug Use: No Smoking Status: Never a Smoker 2nd Hand Smoke Exposure: No Recent Foreign Travel: No Contact w/other who traveled: No Recent Hopitalizations: No Recent Infectious Disease Expo: No (has covid19) Immunizations Up To Date Date of Pneumonia Vaccine: Aug 24, 2020 Date of Influenza Vaccine: Aug 24, 2020 Seasonal Allergies Seasonal Allergies: No Past Medical History Surgeries: Gallbladder, Kidney Transplant Cardiac: Hypertension Reproductive: No Genitourinary: Renal Failure Endocrine: Parathyroid Disease History of Blood Disorders: No Review of Systems Constitutional: see HPI, weakness Respiratory: cough, dyspnea on exertion, short of breath Physical Exam Physical Exam Vital Signs Vital Signs - First Documented 09/07/20 09/07/20 12:05 14:21 Temp 38.4 Pulse 98 Resp 18 B/P (MAP) 117/72 (87) Pulse Ox 97 O2 Delivery Room Air O2 Flow Rate 2.00 Capillary Refill : Less Than 3 Seconds Height, Weight, BMI Height: 5'4.00" Weight: 190lbs. 0oz. 86.295099nq; 32.88 BMI Method:Stated General Appearance: No Apparent Distress Eyes: Right Eye Normal Inspection, Right Eye PERRL HEENT: PERRL/EOMI, TMs Normal, Normal ENT Inspection, Pharynx Normal, Moist Mucous Membranes Neck: Full Range of Motion, Normal Inspection, Non Tender Respiratory: Chest Non Tender, No Accessory Muscle Use, No Respiratory Distress, Crackles, Decreased Breath Sounds Cardiovascular: Regular Rate, Rhythm, No Edema, No Gallop, No JVD, No Murmur, Normal Peripheral Pulses Gastrointestinal: Normal Bowel Sounds, No Organomegaly, No Pulsatile Mass, Non Tender, Soft Back: Normal Inspection, No CVA Tenderness, No Vertebral Tenderness Extremity: Normal Capillary Refill, Normal Inspection, Normal Range of Motion, Non Tender, No Calf Tenderness, No Pedal Edema Neurologic/Psychiatric: Alert, Oriented x3, No Motor/Sensory Deficits, Normal Mood/Affect Skin: Normal Color, Warm/Dry Lymphatic: No Adenopathy Results Results/Procedures Labs Laboratory Tests 09/07/20 12:30 09/08/20 05:29 Patient resulted labs reviewed. Assessment/Plan Admission Diagnosis Assessment: COVID-19 hypoxia Renal transplant status ARF HTN Plan: Monitor creat Appreciate Dr Rangel Plasma Admission Status: Inpatient Order (span 2 midnights) Reason for Inpatient Admission: COVID-19 hypoxia with ARF Diagnosis/Problems Diagnosis/Problems (1) Coronavirus infection Status: Acute (2) Dehydration Status: Acute (3) Nausea vomiting and diarrhea Status: Acute Clinical Quality Measures DVT/VTE Risk/Contraindication: Risk Factor Score Per Nursin RFS Level Per Nursing on Admit: 2=Moderate NAOMI DICKERSON DO Sep 08, 2020 10:28
[2020-09-08] MEDS ORDERED: ALPR0.5T7 PO (11:51)
[2020-09-08] MEDS ORDERED: OMEP20CA18 PO (11:51)
[2020-09-08] MEDS ORDERED: TACR1CAP24 PO (11:51)
[2020-09-08] MEDS ORDERED: SULF-11 PO (11:51)
[2020-09-08] MEDS ORDERED: ASPI-1238 PO (11:51)
[2020-09-08] MEDS ORDERED: CHOL100045 PO (11:51)
[2020-09-08] MEDS ORDERED: TACR0.5C PO (11:51)
[2020-09-08] MEDS ORDERED: FURO40TA4 PO (11:51)
[2020-09-08] MEDS ORDERED: PRED5TAB PO (11:51)
[2020-09-08] MEDS ORDERED: MYCO180T3 PO (11:51)
[2020-09-08] MEDS ORDERED: NS IV 500 ML 500 ML ONE (13:11)
--- NOTE | 2020-09-08 13:17 | NUR ---
"RD ASSESSMENT PMHx: HTN; renal failure; kidney transplant; parathyroid disease; PT INTERACTION: Received dietary consult for MST score. Note pt is currently in COVID isolation, per chart review. Note all diet information for assessment is per Reinaldo JOHN, or per chart review. Reinaldo states current appetite appears good. Note avg PO intake 75% x2meal, per chart review. Reinaldo states some recent issues with diarrhea. Note no recorded BM, and note pt not currently on bowel regimen per chart review. Note unable to determine recent wt hx, per chart review. Note unable to perform visual assessment of pt due to isolation precautions. Given current PO, no visual assessment, and no wt hx, it is unclear whether the pt meets criteria for malnutrition per ASPEN guidelines. ABNORMAL NUTRITION-RELATED LAB VALUES LOW: HIGH: BUN 27; cr 1.34; glu 271; Est. kcal needs: 9940-0212 kcal | 15-20 kcal/kg Est. Pro needs: 51-69 g Pro | 0.6-0.8 g Pro/kg PES STATEMENT: Given current PO intake, no nutrition diagnosis at this time (NO-1.1). INTERVENTION: Continue with current diet order of Regular diet. Continue with current supplementation order of Ensure Enlive with meals TID. Note if avg PO intake remains 75% or higher, DC supplementation d/t adequate intake. Will continue to follow and reassess as pt needs, intake, and status change. Lc Berger, MS RD LD"
--- NOTE | 2020-09-08 16:07 | NUR ---
SPOKE WITH THE PT ( I CALLED HER ROOM PHONE), WENT THRU THE EXT MED HISTORY AND CALLED [facility] TO COMPLETE THE MED REC WHEN I FIRST SPOKE WITH THE PT WAS ADAMANT THAT HER AND HER HAD ALREADY GONE OVER THE MEDICATIONS WITH A NURSE ON SATURDAY WHEN SHE GOT HERE (THE PT DID NOT COME TO OUR ED UNTIL Saturday09-07-2020). I DID NOT SEE ANY NOTES IN THE PTS PHYSICAL CHART OR IN [facility] ABOUT THIS. PT ADMITS HER HELPS HER WITH HER MEDICATIONS AND HE WOULD BE BETTER AT ANSWERING QUESTIONS THEN SHE IS. WHEN I LET HER KNOW I WOULD CALL HER FOR CLARIFICATION ON HER MEDICATIONS THE PT TOLD ME NOT TO CALL HIM SINCE HE HAS COVID AND IS SICKER THEN SHE IS AND CAN BARELY TALK. AT THIS POINT I BEGIN TO LIST MEDICATIONS LISTED ON THE EXT MED HISTORY AND PT IS ABLE TO TELL ME HOW SHE TAKES EACH. PT THEN TELLS ME SHE TAKES ANTI-REJECTION MEDICATIONS AND SHE MADE THE NURSE AWARE OF THIS ON SATURDAY (EVEN THOUGH PT WAS NOT ADMITTED UNTIL SATURDAY) AND ACCORDING TO THE PT WAS TOLD BY THE NURSE TO KEEP TAKING HER ANTI REJECTION MEDS ON HER OWN WHILE SHE WAS HERE. PT WAS GETTING FRUSTRATED THAT I WAS ASKING QUESTIONS ABOUT HER MEDS AND KEPT ASKING "IF YOU KNOW WHAT THE BOTTLE SAYS WHY ARE YOU ASKING ME HOW I TAKE IT?" I EXPLAINED TO THE PT MY ROLE HERE AT AND LET HER KNOW WE JUST WANT THE MOST ACCURATE INFORMATION ABOUT HER MEDICATIONS AND THAT SOMETIMES DRS VERBALLY CHANGE DIRECTIONS BUT THE BOTTLE MAY NOT REFLECT THE CHANGES. I ENDED THE CONVERSATION LETTING HER KNOW I WOULD CONTACT [facility] TO FIND OUT ABOUT HER ANTI-REJECTION MEDS AND WOULD BE CALLING BACK IF THERE WERE ANY FURTHER QUESTIONS. [facility] FILLED PROGRAF 0.5MG (BID) PROGRAF 1MG (BID) AND MYCOPHENOLATE 180MG (360MG BID) ON 08-25-2020 FOR 30 DAY SUPPLIES I CALLED THE PT AGAIN TO VERIFY THE INFORMATION ABOUT HER ANTIREJECTION MEDS AND SHE WAS ABLE TO TELL ME HOW SHE TAKES EACH. WHILE I WAS ON THE PHONE WITH HER I ONCE AGAIN BROUGHT UP THAT SHE HAD ALREADY WENT OVER HER MEDS WITH A NURSE (I WAS TRYING TO FIGURE OUT EXACTLY WHO SHE GIVE THIS INFORMATION TO) AND THE PT ADAMANTLY SAID "YES! WE WENT OVER ALL OF THIS ON SATURDAY WHEN I CAME HERE! THE NURSE HAD A LIST SHE HAD WRITTEN OF ALL MY MEDICATIONS" I THEN LET HER KNOW SHE HAD JUST BEEN SEEN IN THE ED AND ADMITTED YESTERDAY (09-07) THEY PT DENIED THIS AND SAID "THIS IS WHY WE DONT COME HERE, THIS PLACE DOESNT KNOW WHAT THEY'RE DOING". I REDIRECTED THE CONVERSATION TO HER PREFERRED PHARMACY AND ENDED THE CALL. DUE TO THE STATEMENTS LISTED ABOVE ABOUT THE PT SAYING SHES BEEN HERE SINCE SATURDAY I AM NOT SURE IF THE PT ACTUALLY SPOKE TO A NURSE ABOUT HER MEDICATIONS. ALSO MAYTE JOHN BROUGHT A ZIPLOCK BAG FULL OF MEDICATIONS FROM THE PTS HOME (INCLUDING HER ANTI REJECTION MEDS) INTO THE CLINICAL PHARM OFFICE AND SAID THE FAMILY JUST DROPPED THEM OFF AND THEY HAD NOT BEEN IN THE PT ROOM. Addendum: 09/08/20 at 1705 by BEENA STOVER [facility] WHILE LOOKING AT THE PTS HOME ANTI-REJECTION MEDS IN THE PHARMACY, ASHLEY ROBERTS NOTICED THAT THE DIRECTIONS FOR PROGRAF 1MG AND 0.5MG HAD BEEN CROSSED OUT AND NEW DIRECTIONS WERE HAND WRITTEN ON THE BOTTLE AND HE ASKED ME TO CLARIFY THIS WITH THE PT. I CALLED THE PT TO GET CLARIFICATION AND SHE BECAME VERY UPSET SAYING "YOU HAVE CALLED ME 14 TIMES TODAY(EVEN THOUGH I ONLY CALLED 3X) AND ARE HARASSING ME ABOUT MY MEDICATIONS. WHAT DO YOU WANT FROM ME?" I APOLOGIZED FOR ANY MISCOMMUNICATION AND LET HER KNOW AGAIN WHAT MY ROLE HERE WAS AT AT THAT WE JUST WANT THE MOST UP TO DATE INFORMATION REGARDING HER MEDICATIONS. SHE SEEMED TO UNDERSTAND AND DID APOLOGIZE FOR OUR EARLIER CONVERSATION WHERE THE PT THOUGHT SHE CAME IN ON SATURDAY. SHE REALIZED THAT SHE HAD ONLY BEEN HERE ONE DAY AND WAS JUST CONFUSED. I ONCE AGAIN ASKED ABOUT THE PROGRAF DIRECTIONS AND THE PT LET ME KNOW SHE TAKES 1 MG AM AND 0.5MG PM. I LET HER KNOW [facility] DID HAVE DIFFERENT DIRECTIONS BUT I AM MORE INTERESTED IN HOW SHE TAKES THEM AT HOME. BY THE END OF THE CONVERSATION SHE UNDERSTOOD WHY I WAS ASKING ABOUT HER MEDICATIONS AND SEEMED CONTENT WITH ENDING THE CALL.
[2020-09-08] MEDS: ENOXAPARIN 40 MG/0.4 ML (LOVENOX) SYR SC SCH (16:27)
[2020-09-08] MEDS ORDERED: PATIENT MAY USE OWN MEDS, ALL MC SCH (16:30)
[2020-09-08] MEDS ORDERED: ALPRAZolam 0.5 MG (XANAX) TAB PO PRN (16:45)
[2020-09-08] MEDS ORDERED: TRIM/SULFAMETH 160/800 (SEPTRA DS) TAB PO SCH ×2 (17:00→21:00)
[2020-09-08] MEDS ORDERED: FUROSEMIDE 40 MG (LASIX) TAB PO SCH (17:00)
[2020-09-08] MEDS ORDERED: TACROLIMUS 0.5 MG (PROGRAF) CAP NON-FORMULARY PO SCH ×3 (18:00→21:00)
[2020-09-08] MEDS: CARVEDILOL 12.5 MG (COREG) TABLET PO SCH (20:45)
[2020-09-08] MEDS: MYCOPHENOLATE 180 MG PO SCH (20:58)
[2020-09-08] MEDS ORDERED: TACROLIMUS 1 MG (PROGRAF) CAP NON-FORMULARY PO SCH (21:00)
[2020-09-09] MEDS: LACTATED RINGERS 1,000 ML IV SCH (01:43)
[2020-09-09 04:17] VITALS: BP 124/70
[2020-09-09] MEDS: dexAMETHasone 6 MG TAB (DECADRON) PO SCH (06:11)
[2020-09-09 06:12] LABS: HEMOGLOBIN 11.4 g/dL (11.5-16.0); MEAN PLATELET VOLUME 11.3 fL (9.0-12.2); WHITE BLOOD COUNT 9.9 10^3/uL (4.3-11.0)
[2020-09-09 06:32] LABS: ALBUMIN 3.5 GM/DL (3.2-4.5); CHLORIDE 103 MMOL/L (98-107); POTASSIUM 3.7 MMOL/L (3.6-5.0); SODIUM 136 MMOL/L (135-145)
[2020-09-09 06:33] LABS: CALCIUM 8.8 MG/DL (8.5-10.1)
[2020-09-09 06:34] LABS: GLUCOSE 172 MG/DL (70-105); PHOSPHORUS 2.4 MG/DL (2.3-4.7)
[2020-09-09 06:35] LABS: CARBON DIOXIDE 20 MMOL/L (21-32)
[2020-09-09 06:36] LABS: BILIRUBIN,TOTAL 0.4 MG/DL (0.1-1.0); MAGNESIUM 1.4 MG/DL (1.6-2.4)
[2020-09-09 06:38] LABS: ALKALINE PHOSPHATASE 49 U/L (40-136); CREATININE SERUM 0.87 MG/DL (0.60-1.30); GFR ESTIMATED > 60
[2020-09-09 06:39] LABS: BUN/CREATININE RATIO 25
[2020-09-09 06:41] LABS: ALANINE AMINOTRANSFERASE 19 U/L (0-55)
[2020-09-09 08:00] VITALS: BP 136/85
[2020-09-09] MEDS ORDERED: TACROLIMUS 1 MG (PROGRAF) CAP NON-FORMULARY PO SCH (09:00)
[2020-09-09] MEDS ORDERED: OMEPRAZOLE 20 MG (PriLOSEC) CAP NON-FORMULARY PO SCH (09:00)
[2020-09-09] MEDS ORDERED: ASPIRIN E.C. 81 MG (ECOTRIN) TAB PO SCH (09:00)
[2020-09-09] MEDS ORDERED: VITAMIN D3 25 MCG (1,000 UNITS) TABLET PO SCH (09:00)
[2020-09-09] MEDS ORDERED: ALLOPURINOL 100 MG (ZYLOPRIM) TAB PO SCH (09:00)
[2020-09-09] MEDS ORDERED: FUROSEMIDE 40 MG (LASIX) TAB PO SCH (09:00)
[2020-09-09] MEDS ORDERED: NON-FORMULARY MEDICATION 1 EA EA (Sulfamethoxazole/Trimethoprim (Sulfamethoxazole-Tmp Ss T PO SCH (09:00)
[2020-09-09] MEDS: cefTRIAXone FOR IV USE 1,000 MG in WATER (STERILE) FOR INJECTION 10 ML IV SCH (09:11)
[2020-09-09] MEDS: FAMOTIDINE 20MG/2ML IV (PEPCID) IV SCH (09:11)
[2020-09-09] MEDS: PANTOPRAZOLE 40 MG (PROTONIX) TAB PO SCH (09:11)
[2020-09-09] MEDS: CARVEDILOL 12.5 MG (COREG) TABLET PO SCH (09:12)
[2020-09-09] MEDS: MYCOPHENOLATE 180 MG PO SCH (09:13)
--- NOTE | 2020-09-09 10:12 | Physician Query Clarification ---
PQ-Conflicting Diagnosis Admission/Discharge Admission Date: Sep 07, 2020 at 13:40 Discharge Date: Dr. Hill, The medical record reflects the following clinical scenario: History/Risk Factors: COVID 19 Hypoxia Clinical Findings: 09/07 chest xray: The heart size and vascularity are within normal limits. No focal infiltrate, effusion or pneumothorax. Impression: No acute appearing abnormality. Treatment: Convalescent Plasma, Decadron. Question: Do you agree with the impression of COVID pneumonia per Dr. Rangel? Please document a response in Progress Note or Discharge Summary. 1. Yes 2. No 3. Other, with explanation of clinical findings 4. Clinically undetermined, no explanation for clinical findings. PHYSICIAN RESPONSE Do you agree w/Consulting Dx?: Yes Please remember a lack of response to the above will prompt a phone page by [facility]/Coding staff. In responding to this query, please exercise your independent professional judgment. The purpose of this communication is to more accurately reflect the complexity of your patients condition. The fact that a question is asked does not imply that any particular answer is desired or expected. Thank you for your timely response to this clarification. Requestors name: Carmen Escalera [facility] THIS PHYSICIAN QUERY FORM IS A PERMANENT PART OF THE MEDICAL RECORD CARMEN ESCALERA Sep 09, 2020 10:11 CHERISE HILL DO Sep 09, 2020 10:40
--- NOTE | 2020-09-09 11:52 | Progress Note - Hospitalist ---
Subjective HPI/CC On Admission CC: COVID-19 hypoxia HPI: This is a 70yoWF clinic patient of Dr Alexis who has a h/o kidney transplant who presents to the ER with hypoxia and ARF. Patient was dx with COVID and placed on gentle IVF and DR Rangel consulted. Patient is receiving treatment and tolerated well. O2 is now 1-2 L/min. She denies pain and home meds have been restarted. Dyspnea is about the same as admit. Focused Exam Lactate Level 09/07/20 12:30: Lactic Acid Level 1.53 09/08/20 08:00: Lactic Acid Level 1.17 Objective Exam Vital Signs Vital Signs Date Time Temp Pulse Resp B/P (MAP) Pulse Ox O2 Delivery O2 Flow Rate FiO2 09/09/20 12:51 82 09/09/20 12:00 36.2 20 123/76 (92) 96 Nasal Cannula 1.00 Capillary Refill : Less Than 3 Seconds Results/Procedures Lab Laboratory Tests 09/09/20 04:18 Patient resulted labs reviewed. Diagnosis/Problems Diagnosis/Problems (1) Coronavirus infection Status: Acute (2) Dehydration Status: Acute (3) Nausea vomiting and diarrhea Status: Acute Clinical Quality Measures DVT/VTE Risk/Contraindication: Risk Factor Score Per Nursin RFS Level Per Nursing on Admit: 2=Moderate CHERISE HILL DO Sep 09, 2020 11:52
[2020-09-09 12:00] VITALS: BP 123/76
[2020-09-09] MEDS ORDERED: CEFD300C3 PO (13:34)
[2020-09-09] MEDS ORDERED: DEXA6TAB6 PO (13:34)
[2020-09-09] MEDS ORDERED: PRED5TAB PO (13:34)
--- NOTE | 2020-09-09 13:35 | Discharge Summary ---
Discharge Summary Hospital Course Was the Problem List Reviewed?: Yes Problems/Dx: (1) Coronavirus infection Status: Acute (2) Dehydration Status: Acute (3) Nausea vomiting and diarrhea Status: Acute Hospital Course Date of Admission: Sep 07, 2020 at 13:40 Admission Diagnosis : Family Physician/Provider: Kam Alexis MD Date of Discharge: 09/09/20 Discharge Diagnosis: COVID-19 PNA with hypoxia, ARF, renal transplant status Hospital Course: Hospital Course: Pt had an uneventful hospital course. She was admitted for dehydration, nausea, and vomiting and Covid positive. Pt received oxygen supplementation and IV fluids. Renal transplant status caused close attention to the close attention to the creatinine which improved and pt was discharged in improved condition. Labs and Pending Lab Test: Laboratory Tests 09/09/20 04:18: White Blood Count 9.9, Red Blood Count 3.95, Hemoglobin 11.4L, Hematocrit 34L, Mean Corpuscular Volume 86, Mean Corpuscular Hemoglobin 29, Mean Corpuscular Hemoglobin Concent 34, Red Cell Distribution Width 14.0, Platelet Count 94L, Mean Platelet Volume 11.3, Sodium Level 136, Potassium Level 3.7, Chloride Level 103, Carbon Dioxide Level 20L, Anion Gap 13, Blood Urea Nitrogen 22H, Creatinine 0.87, Estimat Glomerular Filtration Rate > 60, BUN/Creatinine Ratio 25, Glucose Level 172H, Calcium Level 8.8, Corrected Calcium 9.2, Phosphorus Level 2.4, Magnesium Level 1.4L, Total Bilirubin 0.4, Aspartate Amino Transf (AST/SGOT) 20, Alanine Aminotransferase (ALT/SGPT) 19, Alkaline Phosphatase 49, Total Protein 6.0L, Albumin 3.5 Microbiology 09/07/20 Influenza Types A,B Antigen (KATHY) - Final, Complete Home Meds Active Decadron (Dexamethasone) 6 Mg Tablet 6 Mg PO DAILY Cefdinir 300 Mg Capsule 300 Mg PO BID Prednisone 5 Mg Tablet 5 Mg PO DAILY 4 Days Hold until completing Decadron 6mg for 4 more days Reported Vitamin D3 (Cholecalciferol (Vitamin D3)) 25 Mcg Tablet 25 Mcg PO DAILY Aspirin EC (Aspirin) 81 Mg Tablet.dr 81 Mg PO DAILY Mycophenolic Acid (Mycophenolate Sodium) 180 Mg Tablet.dr 360 Mg PO BID TAKES 2 (180MG) TABS Prograf (Tacrolimus) 1 Mg Capsule 1 Mg PO DAILY Prograf (Tacrolimus) 0.5 Mg Capsule 0.5 Mg PO 1800 Furosemide 40 Mg Tablet 40 Mg PO MO,TU,SARANYA,FR,SAT ONLY TAKES 5 DAYS PER WEEK (DOES NOT TAKE ON SAT AND SAT) Omeprazole 20 Mg Capsule.dr 20 Mg PO DAILY Alprazolam 0.5 Mg Tablet 0.5 Mg PO BID PRN Sulfamethoxazole-Tmp Ss Tablet (Sulfamethoxazole/Trimethoprim) 1 Each Tablet 1 Ea PO DAILY Carvedilol 12.5 Mg Tablet 12.5 Mg PO BID Atorvastatin Calcium 20 Mg Tablet 20 Mg PO HS Allopurinol 100 Mg Tablet 150 Mg PO DAILY TAKES 1 & (100MG) TABS Assessment/Pt Instructions PCP 1 week Discharge Planning: <30 minutes discharge planning Discharge Instructions Discharge Diet: No Restrictions Discharge Physical Examination Vital Signs Vital Signs Date Time Temp Pulse Resp B/P (MAP) Pulse Ox O2 Delivery O2 Flow Rate FiO2 09/09/20 12:51 82 09/09/20 12:00 36.2 20 123/76 (92) 96 Nasal Cannula 1.00 General Appearance: No Apparent Distress, WD/WN Respiratory: Chest Non Tender, Lungs Clear, Normal Breath Sounds, No Accessory Muscle Use, No Respiratory Distress Cardiovascular: Regular Rate, Rhythm, No Edema, No Gallop, No JVD, No Murmur, Normal Peripheral Pulses Allergies: Coded Allergies: amlodipine (Verified Allergy, Severe, Anaphylaxis, 09/07/20) Discharge Summary Date of Admission Sep 07, 2020 at 13:40 Date of Discharge Discharge Date: Sep 09, 2020 Admission Diagnosis Assessment: COVID-19 hypoxia Renal transplant status ARF HTN Plan: Monitor creat Appreciate Dr Rangel Plasma Discharge Diagnosis (1) Coronavirus infection Status: Acute (2) Dehydration Status: Acute (3) Nausea vomiting and diarrhea Status: Acute Clinical Quality Measures DVT/VTE Risk/Contraindication: Risk Factor Score Per Nursin RFS Level Per Nursing on Admit: 2=Moderate CHERISE HILL DO Sep 09, 2020 13:35
--- NOTE | 2020-09-09 13:42 | Pulmonary Progress Note ---
Subjective Time Seen by a Provider: 13:41 Sepsis Event Evaluation Height, Weight, BMI Height: 5'4.00" Weight: 190lbs. 0oz. 86.153916cu; 32.88 BMI Method:Stated Focused Exam Lactate Level 09/07/20 12:30: Lactic Acid Level 1.53 09/08/20 08:00: Lactic Acid Level 1.17 Exam Exam Vital Signs Date Time Temp Pulse Resp B/P (MAP) Pulse Ox O2 Delivery O2 Flow Rate FiO2 09/09/20 12:51 82 09/09/20 12:00 36.2 84 20 123/76 (92) 96 Nasal Cannula 1.00 09/09/20 10:54 Nasal Cannula 1.00 09/09/20 08:00 36.4 94 18 136/85 (102) 93 Nasal Cannula 1.00 09/09/20 08:00 Nasal Cannula 1.00 09/09/20 07:00 88 09/09/20 04:17 37.2 91 20 124/70 (88) 94 Nasal Cannula 1.00 09/09/20 01:02 93 09/08/20 23:25 36.9 86 20 158/77 (104) 96 Nasal Cannula 1.00 09/08/20 20:50 Nasal Cannula 2.00 09/08/20 20:01 36.7 88 18 136/68 (90) 99 Room Air 09/08/20 19:00 81 09/08/20 16:00 36.3 91 18 127/78 (94) 95 Room Air I & O 09/09/20 07:00 Intake Total 2480 ml Output Total 2500 ml Balance -20 ml Height & Weight Height: 5'4.00" Weight: 190lbs. 0oz. 86.453981xa; 32.88 BMI Method:Stated General Appearance: No Apparent Distress HEENT: PERRL/EOMI, TMs Normal, Normal ENT Inspection, Pharynx Normal, Moist Mucous Membranes Neck: Full Range of Motion, Normal Inspection, Non Tender Respiratory: Chest Non Tender, No Accessory Muscle Use, No Respiratory Distress, Crackles, Decreased Breath Sounds Cardiovascular: Regular Rate, Rhythm, No Edema, No Gallop, No JVD, No Murmur, Normal Peripheral Pulses Capillary Refill: Less Than 3 Seconds Extremity: Normal Capillary Refill, Normal Inspection, Normal Range of Motion, Non Tender, No Calf Tenderness, No Pedal Edema Neurologic/Psychiatric: Alert, Oriented x3, No Motor/Sensory Deficits, Normal Mood/Affect Skin: Normal Color, Warm/Dry Lymphatic: No Adenopathy Results Lab Laboratory Tests 09/08/20 05:29 09/09/20 04:18 Assessment/Plan Assessment/Plan COVID Pneumonia -CVP -Decadron -Influenza is negative Acute on chronic renal failure with hx of renal transplant -Monitor -WIll hold off on Remdesivir -Start IVF with LR at 100 -Start home anti-rejection meds metabolic acidosis wtih dehydration -Check LA -IVF -Monitor UTI -Start BALAJI Garcia DO Sep 09, 2020 13:42
--- NOTE | 2020-09-09 15:29 | NUR ---
THE PATIENT WAS ON ROOM AIR WHEN TECH ENTERED THE ROOM. PATIENT STATES SHE HASN'T WORE IT ALL DAY. 6 MINUTE WALK BEGAN AND DONE IN THE PATIENTS ROOM. THE PATIENT MAINTAINED 91%-93% THE ENTIRE 6 MINUTES. Addendum: 09/09/20 at 1544 by PAYAL MA Amended: Links added.
[2020-09-09 16:03] VITALS: BP 125/72
== END 2020-09-09 16:50 | disposition home or self-care (01) | DRG 177 ==
LOC: EDUNIT# 11:31 → ER 11:35 → 4TH 13:40
PROVIDERS: ADMIT Internal Medicine; ATTEND Internal Medicine
DX: U07.1 COVID-19 (principal); J12.89 Other viral pneumonia; Z94.0 Kidney transplant status; N17.9 Acute kidney failure, unspecified; E87.2 Acidosis; N39.0 Urinary tract infection, site not specified; E86.0 Dehydration; R11.2 Nausea with vomiting, unspecified; R19.7 Diarrhea, unspecified; I12.9 Hypertensive chronic kidney disease with stage 1 through stage 4 chronic kidney disease, or unspecified chronic kidney disease; N18.9 Chronic kidney disease, unspecified; E21.5 Disorder of parathyroid gland, unspecified; R09.02 Hypoxemia
CPT/HCPCS: 36415; 71045; 80053; 81000; 82728; 83605; 83615; 83735; 84100; 84484; 85025; 85027; 85384; 85610; 85730; 86141; 86850; 86900; 86901; 87088; 87186; 87804; 93005; 93041; 94761

== ENCOUNTER 2020-09-14 12:16 | Inpatient (IN) | payer MEDICARE, OTHER ==
[~2020-09-14] VITALS: Ht 165 cm; Wt 96.2 kg
[~2020-09-14 12:16] MED LIST changes: +ALLO100T PO; +ALPR0.5T7 PO; +ASPI-1238 PO; +ATOR20TA66 PO; +CARV12.53 PO; +CEFD300C3 PO; +CHOL100045 PO; +DEXA6TAB6 PO; +FURO40TA4 PO; +MYCO180T3 PO; +OMEP20CA18 PO; +PRED5TAB PO; +SULF-11 PO; +TACR0.5C PO; +TACR1CAP24 PO
--- NOTE | 2020-09-14 12:32 | ED Respiratory ---
General Chief Complaint: Respiratory Problems Stated Complaint: COVID +, SOB Source: patient Exam Limitations: no limitations History of Present Illness Date Seen by Provider: Sep 14, 2020 Time Seen by Provider: 12:29 Initial Comments To ER by EMS from home with reports of malaise, body aches, difficulty breathing. She is known to be Covid positive. She was recently admitted to the hospital and received convalescent plasma. She was discharged home on supple mental oxygen. On her baseline 2 L (which she did not wear prior to Covid) she was in the low 90% range. She has had difficulty with eating and drinking much. Her with whom she lives is also ill with Covid. She is a renal transplant patient. Shes diabetic. She finished Dexamethasone yesterday. Timing/Duration: constant Severity: moderate Prior Episodes/Possible Cause: no prior episodes Associated Symptoms: cough, fever/chills, muscle aches, shortness of breath Allergies and Home Medications Allergies Coded Allergies: amlodipine (Verified Allergy, Severe, Anaphylaxis, 09/07/20) Home Medications Allopurinol 100 Mg Tablet, 150 MG PO DAILY, (Reported) TAKES 1 & (100MG) TABS Alprazolam 0.5 Mg Tablet, 0.5 MG PO BID PRN for ANXIETY, (Reported) Aspirin 81 Mg Tablet.dr, 81 MG PO DAILY, (Reported) Atorvastatin Calcium 20 Mg Tablet, 20 MG PO HS, (Reported) Carvedilol 12.5 Mg Tablet, 12.5 MG PO BID, (Reported) Cefdinir 300 Mg Capsule, 300 MG PO BID Prescribed by: CHERISE HILL on 09/09/20 1334 Cholecalciferol (Vitamin D3) 25 Mcg Tablet, 25 MCG PO DAILY, (Reported) Dexamethasone 6 Mg Tablet, 6 MG PO DAILY Prescribed by: CHERISE HILL on 09/09/20 1334 Furosemide 40 Mg Tablet, 40 MG PO MO,TU,SARANYA,FR,SAT, (Reported) ONLY TAKES 5 DAYS PER WEEK (DOES NOT TAKE ON SAT AND SAT) Mycophenolate Sodium 180 Mg Tablet.dr, 360 MG PO BID, (Reported) TAKES 2 (180MG) TABS Omeprazole 20 Mg Capsule.dr, 20 MG PO DAILY, (Reported) Prednisone 5 Mg Tablet, 5 MG PO DAILY Hold until completing Decadron 6mg for 4 more days Prescribed by: CHERISE HILL on 09/09/20 1334 Sulfamethoxazole/Trimethoprim 1 Each Tablet, 1 EA PO DAILY, (Reported) Tacrolimus 0.5 Mg Capsule, 0.5 MG PO 1800, (Reported) Tacrolimus 1 Mg Capsule, 1 MG PO DAILY, (Reported) Patient Home Medication List Home Medication List Reviewed: Yes Review of Systems Review of Systems Constitutional: see HPI EENTM: see HPI Respiratory: no symptoms reported Cardiovascular: no symptoms reported Genitourinary: no symptoms reported Musculoskeletal: see HPI, muscle pain Skin: no symptoms reported Psychiatric/Neurological: No Symptoms Reported Hematologic/Lymphatic: No Symptoms Reported Past Tpupois-Atjmie-Ramnjc Hx Patient Social History 2nd Hand Smoke Exposure: No Recent Foreign Travel: No Contact w/Someone Who Travel: No Recent Hopitalizations: No Immunizations Up To Date Date of Pneumonia Vaccine: Aug 24, 2020 Date of Influenza Vaccine: Aug 24, 2020 Seasonal Allergies Seasonal Allergies: No Past Medical History Surgeries: Yes ( PARATHYROID TUMOR REMOVED) Gallbladder, Kidney Transplant Respiratory: No Cardiac: Yes Hypertension Neurological: No Reproductive Disorders: No Genitourinary: Yes Renal Failure Gastrointestinal: No Musculoskeletal: No Endocrine: Yes (TUMOR REMOVED) Parathyroid Disease HEENT: No Cancer: No Psychosocial: No Blood Disorders: No Physical Exam Vital Signs - First Documented 09/14/20 12:20 Temp 36.4 Pulse 83 Resp 28 B/P (MAP) 134/92 (106) Pulse Ox 94 O2 Delivery Nasal Cannula O2 Flow Rate 4.00 Capillary Refill : Height: 5'4.00" Weight: 190lbs. 0oz. 86.798253cg; 32.88 BMI Method:Stated General Appearance: WD/WN, no apparent distress Eyes: Bilateral Eye Normal Inspection, Bilateral Eye PERRL HEENT: PERRL/EOMI, normal ENT inspection, other (dry mucous membranes) Respiratory: lungs clear, normal breath sounds, no respiratory distress, no accessory muscle use Cardiovascular: regular rate, rhythm, no murmur Gastrointestinal: normal bowel sounds, soft Extremities: normal range of motion, non-tender Neurologic/Psychiatric: alert, normal mood/affect, oriented x 3 Skin: normal color, warm/dry Focused Exam Lactate Level 09/14/20 12:25: Lactic Acid Level 2.16*H Lactic Acid Level Laboratory Tests Test 09/14/20 12:25 Lactic Acid Level 2.16 MMOL/L (0.50-2.00) *H Progress/Results/Core Measures Suspected Sepsis SIRS Temperature: Pulse: Respiratory Rate: Laboratory Tests 09/14/20 12:25: White Blood Count 15.6H Blood Pressure / Mean: 09/14/20 12:25: Lactic Acid Level 2.16*H Laboratory Tests 09/14/20 12:25: Creatinine 1.11, Platelet Count 184, Total Bilirubin 1.3H Results/Orders Lab Results Laboratory Tests Test 09/14/20 12:25 Range/Units White Blood Count 15.6 H 4.3-11.0 10^3/uL Red Blood Count 5.03 3.80-5.11 10^6/uL Hemoglobin 14.1 # 11.5-16.0 g/dL Hematocrit 43 35-52 % Mean Corpuscular Volume 86 80-99 fL Mean Corpuscular Hemoglobin 28 25-34 pg Mean Corpuscular Hemoglobin Concent 33 32-36 g/dL Red Cell Distribution Width 13.6 10.0-14.5 % Platelet Count 184 130-400 10^3/uL Mean Platelet Volume 11.3 9.0-12.2 fL Immature Granulocyte % (Auto) 5 % Neutrophils (%) (Auto) 79 H 42-75 % Lymphocytes (%) (Auto) 11 L 12-44 % Monocytes (%) (Auto) 5 0-12 % Eosinophils (%) (Auto) 0 0-10 % Basophils (%) (Auto) 0 0-10 % Neutrophils # (Auto) 12.3 H 1.8-7.8 10^3/uL Lymphocytes # (Auto) 1.7 1.0-4.0 10^3/uL Monocytes # (Auto) 0.8 0.0-1.0 10^3/uL Eosinophils # (Auto) 0.0 0.0-0.3 10^3/uL Basophils # (Auto) 0.1 0.0-0.1 10^3/uL Immature Granulocyte # (Auto) 0.7 H 0.0-0.1 10^3/uL Neutrophils % (Manual) 87 % Lymphocytes % (Manual) 7 % Monocytes % (Manual) 4 % Band Neutrophils 2 % Blood Morphology Comment NORMAL D-Dimer 0.97 H 0.00-0.49 UG/ML Sodium Level 137 135-145 MMOL/L Potassium Level 4.3 3.6-5.0 MMOL/L Chloride Level 98 98-107 MMOL/L Carbon Dioxide Level 24 21-32 MMOL/L Anion Gap 15 H 5-14 MMOL/L Blood Urea Nitrogen 43 H 7-18 MG/DL Creatinine 1.11 0.60-1.30 MG/DL Estimat Glomerular Filtration Rate 48 BUN/Creatinine Ratio 39 Glucose Level 449 *H 70-105 MG/DL Lactic Acid Level 2.16 *H 0.50-2.00 MMOL/L Calcium Level 8.6 8.5-10.1 MG/DL Corrected Calcium 9.0 8.5-10.1 MG/DL Total Bilirubin 1.3 H 0.1-1.0 MG/DL Aspartate Amino Transf (AST/SGOT) 16 5-34 U/L Alanine Aminotransferase (ALT/SGPT) 18 0-55 U/L Alkaline Phosphatase 50 40-136 U/L C-Reactive Protein High Sensitivity 8.64 H 0.00-0.50 MG/DL Total Protein 6.8 6.4-8.2 GM/DL Albumin 3.5 3.2-4.5 GM/DL Beta-Hydroxybutyrate (Chem panel) 0.31 H 0.00-0.27 MMOL/L Procalcitonin 0.05 <0.10 NG/ML My Orders Orders - ASHLEY ZIEGLER APRN Cbc With Automated Diff (09/14/20 12:27) Comprehensive Metabolic Panel (09/14/20 12:27) Hs C Reactive Protein (09/14/20 12:27) Fibrin Degradation Products (09/14/20 12:27) Ekg Tracing (09/14/20 12:27) Ua Culture If Indicated (09/14/20 12:27) Ed Iv/Invasive Line Start (09/14/20 12:27) Blood Culture (09/14/20 12:27) Lactic Acid Analyzer (09/14/20 12:27) Procalcitonin (Pct) (09/14/20 12:27) Chest 1 View, Ap/Pa Only (09/14/20 12:28) Manual Differential (09/14/20 12:25) Ns Iv 500 Ml (Sodium Chloride 0.9%) (09/14/20 13:00) Fentanyl Injection (Sublimaze Injection (09/14/20 13:00) Insulin (Regular) Human (Novolin R (Per (09/14/20 13:15) Insulin (Regular) Human (Novolin R (Per (09/14/20 13:11) Beta Hydroxybutyrate (09/14/20 13:16) Medications Given in ED Current Medications Medications Dose Ordered Sig/Omid Route Start Time Stop Time Status Last Admin Dose Admin Fentanyl Citrate 25 mcg ONCE ONCE IVP 09/14/20 13:00 09/14/20 13:01 DC 09/14/20 12:57 25 MCG Vital Signs/I&O 09/14/20 12:20 Temp 36.4 Pulse 83 Resp 28 B/P (MAP) 134/92 (106) Pulse Ox 94 O2 Delivery Nasal Cannula O2 Flow Rate 4.00 Capillary Refill : Diagnostic Imaging Comments NAME: PAOLA STEINER [facility] REC#: [id number] PT STATUS: REG ER : 1950 PHYSICIAN: ASHLEY ZIEGLER APRN ADMIT DATE: 09/14/20/ER Draft Date of Exam:09/14/20 CHEST 1 VIEW, AP/PA ONLY INDICATION: Shortness of breath. TIME OF EXAM: 12:45 p.m. COMPARISON: Correlation is made with prior chest from 09/07/2020. FINDINGS: Heart size is stable. Patient has developed patchy airspace infiltrates in the mid and lower lung patel bilaterally, suggestive of pneumonia. No effusion or pneumothorax is identified. IMPRESSION: Development of patchy bilateral pulmonary infiltrates, consistent with pneumonia. Dictated on workstation # [id number] Dict: 09/14/20 1309 Trans: 09/14/20 1312 [id number] [id number] Interpreted by: KATIE ROCHA MD Electronically signed by: Departure Communication (Admissions) Spoke with Dr. Martínez. Given the new onset hyperglycemia, acute kidney injury with history of renal transplant with you asked to admit, gently hydrate. Impression Primary Impression: Coronavirus infection Additional Impressions: Dehydration Hyperglycemia History of renal transplant Disposition: HOME, SELF-CARE Condition: Stable Departure-Patient Inst. Referrals: GARRETT BERG MD (PCP/Family) Primary Care Physician ASHLEY ZIEGLER APRN Sep 14, 2020 12:32
[2020-09-14 12:37] LABS: BASOPHILS # (AUTO) 0.1 10^3/uL (0.0-0.1); BASOPHILS % (AUTO) 0 % (0-10); EOSINOPHILS % (AUTO) 0 % (0-10); HEMATOCRIT 43 % (35-52); HEMOGLOBIN 14.1 g/dL (11.5-16.0); LYMPHOCYTES # (AUTO) 1.7 10^3/uL (1.0-4.0); LYMPHOCYTES % (AUTO) 11 % (12-44); MEAN CORPUSCULAR HEMOGLOBIN 28 pg (25-34); MEAN CORPUSCULAR HGB CONC 33 g/dL (32-36); MEAN CORPUSCULAR VOLUME 86 fL (80-99); MEAN PLATELET VOLUME 11.3 fL (9.0-12.2); MONOCYTES # (AUTO) 0.8 10^3/uL (0.0-1.0); MONOCYTES % (AUTO) 5 % (0-12); NEUTROPHILS # (AUTO) 12.3 10^3/uL (1.8-7.8); NEUTROPHILS % (AUTO) 79 % (42-75); PLATELET COUNT 184 10^3/uL (130-400); WHITE BLOOD COUNT 15.6 10^3/uL (4.3-11.0)
[2020-09-14 12:43] LABS: ALBUMIN 3.5 GM/DL (3.2-4.5); POTASSIUM 4.3 MMOL/L (3.6-5.0)
[2020-09-14 12:45] LABS: CALCIUM 8.6 MG/DL (8.5-10.1)
[2020-09-14 12:46] LABS: TOTAL PROTEIN 6.8 GM/DL (6.4-8.2)
[2020-09-14 12:48] LABS: BILIRUBIN,TOTAL 1.3 MG/DL (0.1-1.0)
[2020-09-14 12:50] LABS: CREATININE SERUM 1.11 MG/DL (0.60-1.30)
[2020-09-14 12:53] LABS: BAND NEUTROPHILS 2 %; LYMPHOCYTES % (MANUAL) 7 %; MONOCYTES % (MANUAL) 4 %; NEUTROPHILS % (MANUAL) 87 %; RBC MORPH NORMAL
[2020-09-14] MEDS ORDERED: fentaNYL INJECTION 100 MCG/2 ML AMP IVP ONE ×2 (13:00→15:30)
[2020-09-14] MEDS ORDERED: NS IV 500 ML 500 ML IV SCH (13:00)
[2020-09-14] MEDS ORDERED: inSUlin (REGULAR) HUMAN 1 UNIT/0.01 ML (CHARGE PER UNIT) ONE (13:11)
--- NOTE | 2020-09-14 13:13 | Diagnostic Imaging Report ---
INDICATION: Shortness of breath. TIME OF EXAM: 12:45 p.m. COMPARISON: Correlation is made with prior chest from 09/07/2020. FINDINGS: Heart size is stable. Patient has developed patchy airspace infiltrates in the mid and lower lung patel bilaterally, suggestive of pneumonia. No effusion or pneumothorax is identified. IMPRESSION: Development of patchy bilateral pulmonary infiltrates, consistent with pneumonia. Dictated by: Dictated on workstation # [id number]
[2020-09-14] MEDS ORDERED: inSUlin (REGULAR) HUMAN 1 UNIT/0.01 ML (CHARGE PER UNIT) SC SCH (13:15)
[2020-09-14] MEDS ORDERED: ONDANSETRON 4 MG/2 ML (SDV) Z0FRAN ONE (14:12)
[2020-09-14 15:10] LABS: BILIRUBIN,URINE NEGATIVE (NEGATIVE); CLARITY,URINE CLEAR; COLOR,URINE YELLOW; GLUCOSE, URINE (UA) 3+ (NEGATIVE); KETONES,URINE NEGATIVE (NEGATIVE); LEUKOCYTE ESTERASE ,URINE NEGATIVE (NEGATIVE); NITRITE,URINE NEGATIVE (NEGATIVE); PROTEIN,URINE TRACE (NEGATIVE)
[2020-09-14 15:27] LABS: BACTERIA,URINE NEGATIVE /HPF; RBC,URINE RARE /HPF; SQUAMOUS EPITHELIAL CELL,UR RARE /HPF; WBC,URINE RARE /HPF
[2020-09-14 16:11] VITALS: BP 139/69
--- NOTE | 2020-09-14 16:22 | NUR ---
PAOLA STEINER admitted to room 432-1, with an admitting diagnosis of covid + ARF, Hyperglycemia, on 09/14/20 from [place] ER via cart, accompanied by ed staff. PAOLA STEINER introduced to surroundings, call light, bed controls, phone, TV, temperature control, lights, meal times, smoking policy, visitor policy, side rail policy, bathrooms and showers. Patient Rights given to patient in the handbook. PAOLA STEINER verbalizes understanding that [facility] is not responsible for the loss or damage to any personal effects or valuables that are kept in the patients posession during their hospitalization. PAOLA STEINER verbalizes understanding of Interdisciplinary Patient Education. Patient and/or family were informed about the Rapid Response Team and its purpose.
[2020-09-14] MEDS ORDERED: ONDANSETRON 4 MG/2 ML (SDV) Z0FRAN IVP PRN ×2 (16:30→20:00)
[2020-09-14] MEDS ORDERED: fentaNYL INJECTION 100 MCG/2 ML AMP IVP PRN (16:30)
[2020-09-14] MEDS ORDERED: inSUlin ASPART (NovoLOG) 1 UNIT/0.01 ML (CHARGE PER UNIT) ONE (16:56)
[2020-09-14] MEDS: ENOXAPARIN 40 MG/0.4 ML (LOVENOX) SYR SC SCH (17:25)
[2020-09-14] MEDS: LACTATED RINGERS 1,000 ML IV SCH (17:26)
[2020-09-14 20:14] VITALS: BP 135/74
[2020-09-14] MEDS ORDERED: inSUlin ASPART (NovoLOG) 1 UNIT/0.01 ML (CHARGE PER UNIT) SC SCH (21:00)
[2020-09-14] MEDS: RT-ALBUTEROL INHALER HFA (VENTOLIN HFA) 18 GM IH SCH (22:14)
--- NOTE | 2020-09-14 23:45 | NUR ---
Dr. Martínez notified of need for BiPap due to decreased sats around 86-87% (maxed on Vapotherm). New order rec for Ativan 0.5mg IV TID PRN for anxiousness. also requesting for patient to be transfered to ICU. Will notify [employer]. Addendum: 09/14/20 at 2352 by RAMÓN POP RN also requesting ABG 30 minutes after pt has been on BiPap.
[2020-09-14] MEDS ORDERED: LORazepam INJ 2 MG/ML (ATIVAN) VIAL ONE (23:49)
[2020-09-14 23:55] VITALS: BP 140/90
[2020-09-14] MEDS: LORazepam INJ 2 MG/ML (ATIVAN) VIAL IVP PRN (23:55)
[2020-09-15] VITALS (27 sets, daily range): BP systolic 109–195; BP diastolic 64–117
--- NOTE | 2020-09-15 00:15 | NUR ---
PT TRANSFERRED TO ICU VIA BED, ON BIPAP. REPORT GIVEN Makeda JETT RN.
[2020-09-15 00:38] LABS: ABG BASE EXCESS 6.3 MMOL/L (-2.5-2.5); ABG OXYGEN SATURATION 98 % (94-100); ABG PCO2 44 MMHG (35-45); ABG PH 7.45 (7.37-7.43); ABG PO2 106 MMHG (79-93); ABG TCO2 31.4 MMOL/L (21.0-31.0)
[2020-09-15 00:43] LABS: ALLENS TEST POS; INSPIRED O2 100%
[2020-09-15 00:44] LABS: VENTILATOR NO
[2020-09-15 00:45] LABS: PATIENT TEMP 37.9
[2020-09-15] MEDS ORDERED: REMDESIVIR INJ 100 MG in NS (IVPB) 230 ML IV SCH (00:45)
[2020-09-15] MEDS ORDERED: REMDESIVIR INJ 200 MG in NS (IVPB) 210 ML IV ONE (00:45)
[2020-09-15] MEDS ORDERED: PHARMACY TO DOSE IV SCH (00:45)
--- NOTE | 2020-09-15 00:54 | History & Physical ---
HPI History of Present Illness: 70 yo female admitted with high blood sugar and feeling poorly after recent discharge for COVID related issues. She was discharged on new oxygen requirement of 2 lpm. She was diagnosed with COVID on about 09/04 per chart review, and appears to have started having symptoms about 2-3 days before that. Since admission she has had worsening hypoxia to the point that she is now requiring bipap and she was quite anxious and fighting bipap so ativan 0.5 mg IV was given. She opens her eyes and says her name when asked, but is not answering other questions at this time, so information is from chart review. Transferred to ICU due to need for bipap with 100% FiO2 and concern for possible need for intubation. Source: patient, old records Exam Limitations: clinical condition Date seen by provider: Sep 15, 2020 Time Seen by Provider: 00:30 Attending Physician Dedra Martínez MD PCP Kam Alexis MD Consult Date of Admission Sep 14, 2020 at 13:51 Home Medications Home Medications Reviewed patient Home Medication Reconciliation performed by pharmacy medication reconciliations instrument/control technician and/or nursing. Patients Allergies have been reviewed. Allergies Coded Allergies: amlodipine (Verified Allergy, Severe, Anaphylaxis, 09/07/20) RJB-Ldjsge-Wtdssb Hx Patient Social History Alcohol Use: Denies Use Recreational Drug Use: No Smoking Status: Never a Smoker 2nd Hand Smoke Exposure: No Recent Foreign Travel: No Contact w/other who traveled: No Recent Hopitalizations: Yes (covid) Recent Infectious Disease Expo: Yes Immunizations Up To Date Date of Pneumonia Vaccine: Aug 24, 2020 Date of Influenza Vaccine: Aug 24, 2020 Past Medical History PMHx: HLD s/p renal transplant DMII HTN Gout Multinodular goiter SurgHx: Renal transplant Cholecystectomy Hysterectomy D&C Parathyroidectomy Family Medical History Significant Family History: Heart Disease, Cancer, Stroke Review of Systems ([facility]) Constitutional: other (unable to obtain due to patient condition) Reviewed Test Results Reviewed Test Results Lab Laboratory Tests Test 09/14/20 12:25 09/14/20 15:02 09/14/20 16:10 09/14/20 20:18 Range/Units White Blood Count 15.6 H 4.3-11.0 10^3/uL Red Blood Count 5.03 3.80-5.11 10^6/uL Hemoglobin 14.1 # 11.5-16.0 g/dL Hematocrit 43 35-52 % Mean Corpuscular Volume 86 80-99 fL Mean Corpuscular Hemoglobin 28 25-34 pg Mean Corpuscular Hemoglobin Concent 33 32-36 g/dL Red Cell Distribution Width 13.6 10.0-14.5 % Platelet Count 184 130-400 10^3/uL Mean Platelet Volume 11.3 9.0-12.2 fL Immature Granulocyte % (Auto) 5 % Neutrophils (%) (Auto) 79 H 42-75 % Lymphocytes (%) (Auto) 11 L 12-44 % Monocytes (%) (Auto) 5 0-12 % Eosinophils (%) (Auto) 0 0-10 % Basophils (%) (Auto) 0 0-10 % Neutrophils # (Auto) 12.3 H 1.8-7.8 10^3/uL Lymphocytes # (Auto) 1.7 1.0-4.0 10^3/uL Monocytes # (Auto) 0.8 0.0-1.0 10^3/uL Eosinophils # (Auto) 0.0 0.0-0.3 10^3/uL Basophils # (Auto) 0.1 0.0-0.1 10^3/uL Immature Granulocyte # (Auto) 0.7 H 0.0-0.1 10^3/uL Neutrophils % (Manual) 87 % Lymphocytes % (Manual) 7 % Monocytes % (Manual) 4 % Band Neutrophils 2 % Blood Morphology Comment NORMAL D-Dimer 0.97 H 0.00-0.49 UG/ML Sodium Level 137 135-145 MMOL/L Potassium Level 4.3 3.6-5.0 MMOL/L Chloride Level 98 98-107 MMOL/L Carbon Dioxide Level 24 21-32 MMOL/L Anion Gap 15 H 5-14 MMOL/L Blood Urea Nitrogen 43 H 7-18 MG/DL Creatinine 1.11 0.60-1.30 MG/DL Estimat Glomerular Filtration Rate 48 BUN/Creatinine Ratio 39 Glucose Level 449 *H 70-105 MG/DL Lactic Acid Level 2.16 *H 1.45 0.50-2.00 MMOL/L Calcium Level 8.6 8.5-10.1 MG/DL Corrected Calcium 9.0 8.5-10.1 MG/DL Total Bilirubin 1.3 H 0.1-1.0 MG/DL Aspartate Amino Transf (AST/SGOT) 16 5-34 U/L Alanine Aminotransferase (ALT/SGPT) 18 0-55 U/L Alkaline Phosphatase 50 40-136 U/L C-Reactive Protein High Sensitivity 8.64 H 0.00-0.50 MG/DL Total Protein 6.8 6.4-8.2 GM/DL Albumin 3.5 3.2-4.5 GM/DL Beta-Hydroxybutyrate (Chem panel) 0.31 H 0.00-0.27 MMOL/L Procalcitonin 0.05 <0.10 NG/ML Urine Color YELLOW Urine Clarity CLEAR Urine pH 6.0 5-9 Urine Specific [place] 1.015 L 1.016-1.022 Urine Protein TRACE H NEGATIVE Urine Glucose (UA) 3+ H NEGATIVE Urine Ketones NEGATIVE NEGATIVE Urine Nitrite NEGATIVE NEGATIVE Urine Bilirubin NEGATIVE NEGATIVE Urine Urobilinogen 0.2 < = 1.0 MG/DL Urine Leukocyte Esterase NEGATIVE NEGATIVE Urine RBC (Auto) TRACE-I NEGATIVE Urine RBC RARE /HPF Urine WBC RARE /HPF Urine Squamous Epithelial Cells RARE /HPF Urine Crystals NONE /LPF Urine Bacteria NEGATIVE /HPF Urine Casts NONE /LPF Urine Mucus NEGATIVE /LPF Urine Culture Indicated NO Glucometer 300 H 363 H 70-110 MG/DL Test 09/15/20 00:26 Range/Units Blood Gas Puncture Site LFT RAD Blood Gas Patient Temperature 37.9 Arterial Blood pH 7.45 H 7.37-7.43 Arterial Blood Partial Pressure CO2 44 35-45 MMHG Arterial Blood Partial Pressure O2 106 H 79-93 MMHG Arterial Blood HCO3 30 H 23-27 MMOL/L Arterial Blood Total CO2 31.4 H 21.0-31.0 MMOL/L Arterial Blood Oxygen Saturation 98 94-100 % Arterial Blood Base Excess 6.3 H -2.5-2.5 MMOL/L Venkata Test POS Blood Gas Ventilator Setting NO Blood Gas Inspired Oxygen 100% Radiology CXR 09/14: IMPRESSION: Development of patchy bilateral pulmonary infiltrates, consistent with pneumonia. Physical Exam-([facility]) Physical Exam Vital Signs VS - Last 72 Hours, by Label 09/14/20 09/14/20 09/14/20 09/14/20 12:20 14:21 15:37 15:40 Temp 36.4 36.4 Pulse 83 83 Resp 28 28 B/P (MAP) 134/92 (106) 136/83 (106) Pulse Ox 94 91 96 O2 Delivery Nasal Cannula Vapotherm Vapotherm Vapotherm O2 Flow Rate 4.00 40.00 40.00 40.00 FiO2 100 100 09/14/20 09/14/20 09/14/20 09/14/20 15:52 16:11 20:14 20:30 Temp 36.4 36.5 Pulse 90 91 Resp 20 18 B/P (MAP) 139/69 (92) 135/74 (94) Pulse Ox 96 93 93 O2 Delivery Vapotherm Vapotherm Vapotherm Vapotherm O2 Flow Rate 40.00 40.00 40.00 100.00 100.00 FiO2 100 09/14/20 09/14/20 09/14/20 09/15/20 22:14 23:44 23:55 00:12 Temp 36.6 37.9 Pulse 99 100 100 Resp 37 34 29 B/P (MAP) 140/90 (107) 128/103 (111) Pulse Ox 97 94 91 100 O2 Delivery Vapotherm NIV Bilevel NIV Bilevel O2 Flow Rate 40.00 100.00 100.00 FiO2 100 09/15/20 00:15 Pulse 98 Resp 32 B/P (MAP) 139/87 (104) Pulse Ox 100 O2 Delivery NIV Bilevel O2 Flow Rate 100.00 Capillary Refill : Less Than 3 Seconds General Appearance: mild distress, obese Eyes: Bilateral Eye Normal Inspection Respiratory: lungs clear, normal breath sounds, accessory muscle use Cardiovascular: no murmur, tachycardia Gastrointestinal: normal bowel sounds, non tender, soft Extremities: no pedal edema Neurologic/Psychiatric: alert, other (appears disoriented, does not answer questions. Moving all extremities equally and opens eyes and responds to name) Skin: normal color, warm/dry Assessment/Plan Assessment/Plan Admission Status: Inpatient Order (span 2 midnights) Reason for Inpatient Admission: Hypoxic respiratory failure with DMII and hyperglycemia (1) Acute respiratory failure with hypoxia Status: Acute Assessment & Plan: Significant worsening this evening, not resolved with vapotherm at max settings, started on bipap at FiO2 100% and 14/8, transferred to ICU. Discussed with ICU and will initiate empiric treatment for HAP with cefepime and vancomycin as well as treatments as noted below for COVID. ABG pending. Check lactic acid and procalcitonin. Blood culture pending. (2) Coronavirus infection Status: Acute Assessment & Plan: Discussed treatment with E ICU physician, will resume decadron and repeat convalescent plasma. Did not receive remdesevir previous admit, E ICU recommends giving due to persistent worsening and normal renal function. (3) Diabetes Status: Chronic Assessment & Plan: Hyperglycemic on admit, given regular insulin in ER but still running high, ICU glycemic protocol Qualifiers: Qualified Codes: E11.65 - Type 2 diabetes mellitus with hyperglycemia (4) Obesity (BMI 30.0-34.9) Status: Chronic (5) History of renal transplant Status: Acute Assessment & Plan: Renal function normal, monitor closely. (6) Hyperglycemia Status: Acute (7) DVT prophylaxis Status: Acute Assessment & Plan: Enoxaparin Clinical Quality Measures DVT/VTE Risk/Contraindication: Risk Factor Score Per Nursin RFS Level Per Nursing on Admit: 4+=Very High DEDRA MARTÍNEZ MD Sep 15, 2020 00:54
[2020-09-15] MEDS ORDERED: VANCOMYCIN 1 GM/NS 250 ML IVPB IV SCH ×4 (01:30→20:00)
[2020-09-15] MEDS ORDERED: VANCOMYCIN 1000 MG/VIAL ONE (01:41)
[2020-09-15] MEDS ORDERED: NS (IVPB) 250 ML ONE ×3 (01:41→07:48)
[2020-09-15] MEDS ORDERED: VANCOMYCIN 750 MG/VIAL IV ONE (01:42)
[2020-09-15] MEDS ORDERED: DexMEDEtomidine PRE MIX 100 ML IV SCH (02:00)
[2020-09-15] MEDS: RT-ALBUTEROL INHALER HFA (VENTOLIN HFA) 18 GM IH SCH ×5 (02:21→18:26)
[2020-09-15] MEDS ORDERED: VANCOMYCIN 750 MG/NS 250 ML IVPB IV SCH ×2 (02:30)
--- NOTE | 2020-09-15 04:18 | Pulmonary Consultation ---
History of Present Illness History of Present Illness Date Seen by Provider: Sep 15, 2020 Time Seen by Provider: 04:12 Date of Admission History of Present Illness 70yo with recent hospitalization secondary to COVID readmitted secondary to worsening SOB. 70 yo female admitted with high blood sugar and feeling poorly after recent discharge for COVID related issues. She was discharged on new oxygen requirement of 2 lpm. She was diagnosed with COVID on about 09/04 per chart review, and appears to have started having symptoms about 2-3 days before that. Since admission she has had worsening hypoxia to the point that she is now requiring bipap and she was quite anxious and fighting bipap so ativan 0.5 mg IV was given. She opens her eyes and says her name when asked, but is not answering other questions at this time, so information is from chart review. Transferred to ICU due to need for bipap with 100% FiO2 and concern for possible need for intubation. Source: patient, old records Allergies and Home Medications Allergies Coded Allergies: amlodipine (Verified Allergy, Severe, Anaphylaxis, 09/07/20) Home Medications Allopurinol 100 Mg Tablet, 150 MG PO DAILY, (Reported) TAKES 1 & (100MG) TABS Alprazolam 0.5 Mg Tablet, 0.5 MG PO BID PRN for ANXIETY, (Reported) Aspirin 81 Mg Tablet.dr, 81 MG PO DAILY, (Reported) Atorvastatin Calcium 20 Mg Tablet, 20 MG PO HS, (Reported) Carvedilol 12.5 Mg Tablet, 12.5 MG PO BID, (Reported) Cefdinir 300 Mg Capsule, 300 MG PO BID Prescribed by: CHERISE HILL on 09/09/20 1334 Cholecalciferol (Vitamin D3) 25 Mcg Tablet, 25 MCG PO DAILY, (Reported) Dexamethasone 6 Mg Tablet, 6 MG PO DAILY Prescribed by: CHERISE HILL on 09/09/20 1334 Furosemide 40 Mg Tablet, 40 MG PO MO,TU,SARANYA,FR,SAT, (Reported) ONLY TAKES 5 DAYS PER WEEK (DOES NOT TAKE ON SAT AND SAT) Mycophenolate Sodium 180 Mg Tablet.dr, 360 MG PO BID, (Reported) TAKES 2 (180MG) TABS Omeprazole 20 Mg Capsule.dr, 20 MG PO DAILY, (Reported) Prednisone 5 Mg Tablet, 5 MG PO DAILY Hold until completing Decadron 6mg for 4 more days Prescribed by: CHERISE HILL on 09/09/20 1334 Sulfamethoxazole/Trimethoprim 1 Each Tablet, 1 EA PO DAILY, (Reported) Tacrolimus 0.5 Mg Capsule, 0.5 MG PO 1800, (Reported) Tacrolimus 1 Mg Capsule, 1 MG PO DAILY, (Reported) Past Amxrxdg-Ytgmrn-Fphqti Hx Patient Social History Alcohol Use: Denies Use Recreational Drug Use: No Smoking Status: Never a Smoker 2nd Hand Smoke Exposure: No Recent Foreign Travel: No Contact w/Someone Who Travel: No Recent Infectious Disease Expo: Yes Recent Hopitalizations: Yes (covid) Physical Abuse: No Sexual Abuse: No Immunizations Up To Date Date of Pneumonia Vaccine: Aug 24, 2020 Date of Influenza Vaccine: Aug 24, 2020 Seasonal Allergies Seasonal Allergies: No Past Medical History Surgeries: Yes ( PARATHYROID TUMOR REMOVED) Gallbladder, Kidney Transplant Respiratory: No Cardiac: Yes Hypertension Neurological: No Reproductive Disorders: No Genitourinary: Yes Renal Failure Gastrointestinal: No Musculoskeletal: No Endocrine: Yes (TUMOR REMOVED) Parathyroid Disease HEENT: No Cancer: No Psychosocial: No Blood Disorders: No Family Medical History Heart Disease, Cancer, Stroke Review of Systems Time Seen by Provider: 04:13 Sepsis Event Evaluation Height, Weight, BMI Height: 5'4.00" Weight: 190lbs. 0oz. 86.818176jv; 30.26 BMI Method:Stated Exam Exam Vital Signs Date Time Temp Pulse Resp B/P (MAP) Pulse Ox O2 Delivery O2 Flow Rate FiO2 09/15/20 03:51 NIV Bilevel 80.00 09/15/20 03:03 38.3 101 26 164/103 99 NIV/Bilevel 100.00 09/15/20 03:00 99 32 144/79 (100) 100 NIV Bilevel 100.00 09/15/20 02:21 99 37 97 100.00 09/15/20 02:00 105 27 98 NIV Bilevel 100.00 09/15/20 01:45 108 27 98 NIV Bilevel 100.00 09/15/20 01:15 101 21 160/95 (116) 98 NIV Bilevel 100.00 09/15/20 00:49 100 09/15/20 00:45 101 17 159/97 (117) 92 NIV Bilevel 100.00 09/15/20 00:30 101 19 152/97 (115) 98 NIV Bilevel 100.00 09/15/20 00:15 98 32 139/87 (104) 100 NIV Bilevel 100.00 09/15/20 00:15 99 37 99 100.00 09/15/20 00:12 37.9 100 29 128/103 (111) 100 NIV Bilevel 100.00 09/14/20 23:55 36.6 100 34 140/90 (107) 91 NIV Bilevel 09/14/20 23:44 99 37 94 100.00 09/14/20 22:14 97 Vapotherm 40.00 100 09/14/20 20:30 93 Vapotherm 40.00 100 09/14/20 20:14 36.5 91 18 135/74 (94) 93 Vapotherm 40.00 100.00 09/14/20 19:36 92 Vapotherm 40.00 100 09/14/20 16:11 36.4 90 20 139/69 (92) 96 Vapotherm 40.00 100.00 09/14/20 15:52 Vapotherm 09/14/20 15:40 36.4 83 28 136/83 (106) 96 Vapotherm 40.00 09/14/20 15:37 Vapotherm 40.00 100 09/14/20 14:21 91 Vapotherm 40.00 100 09/14/20 12:20 36.4 83 28 134/92 (106) 94 Nasal Cannula 4.00 I & O 09/15/20 07:00 Intake Total 1600 ml Output Total 850 ml Balance 750 ml Height & Weight Height: 5'4.00" Weight: 190lbs. 0oz. 86.735527qz; 30.26 BMI Method:Stated General Appearance: Anxious, Moderate Distress Capillary Refill: Less Than 3 Seconds Gastrointestinal: normal bowel sounds, non tender, soft Results Lab Laboratory Tests 09/14/20 12:25 Assessment/Plan Assessment/Plan Acute respiratory failure secondary to COVID- - 09/04 -Pt does not meet [place]'s criteria for Remdesivir (symptom onset within 10days) -Proceed with CVP -Currently requiring 80% BiPAP -Titrate Fi02 down -D/C precedex -Repeat Labs penidng PNA -Wong cultures pending -Currently on Cefepime and Vanco -Change Vanco to Zyvox secondary to chronic renal failure ( I suspect her renal failure is going to get worse) Acute on chronic renal failure with hx of renal transplant -Monitor -Start home anti-rejection meds -Increase IVF to 150 for now. metabolic acidosis wtih dehydration -Check LA -IVF -Monitor Hyperglycemia - SSI -Monitor DVT/GI ppx -continue lovenox -Add Protonix Critical Care: Critically Ill Patient BALAJI MCINTOSH DO Sep 15, 2020 04:18
[2020-09-15 04:45] LABS: BASOPHILS % (AUTO) 0 % (0-10); EOSINOPHILS # (AUTO) 0.1 10^3/uL (0.0-0.3); EOSINOPHILS % (AUTO) 1 % (0-10); HEMATOCRIT 42 % (35-52); HEMOGLOBIN 13.7 g/dL (11.5-16.0); LYMPHOCYTES # (AUTO) 1.2 10^3/uL (1.0-4.0); LYMPHOCYTES % (AUTO) 8 % (12-44); MEAN CORPUSCULAR HEMOGLOBIN 28 pg (25-34); MEAN CORPUSCULAR HGB CONC 32 g/dL (32-36); MEAN CORPUSCULAR VOLUME 87 fL (80-99); MONOCYTES # (AUTO) 0.5 10^3/uL (0.0-1.0); MONOCYTES % (AUTO) 3 % (0-12); NEUTROPHILS # (AUTO) 12.7 10^3/uL (1.8-7.8); NEUTROPHILS % (AUTO) 83 % (42-75); PLATELET COUNT 169 10^3/uL (130-400); WHITE BLOOD COUNT 15.4 10^3/uL (4.3-11.0)
[2020-09-15 04:51] LABS: CHLORIDE 100 MMOL/L (98-107); POTASSIUM 4.3 MMOL/L (3.6-5.0); SODIUM 140 MMOL/L (135-145)
[2020-09-15 04:52] LABS: CALCIUM 9.3 MG/DL (8.5-10.1)
[2020-09-15 04:53] LABS: GLUCOSE 296 MG/DL (70-105)
[2020-09-15 04:54] LABS: CARBON DIOXIDE 22 MMOL/L (21-32)
[2020-09-15 04:56] LABS: PHOSPHORUS 2.3 MG/DL (2.3-4.7)
[2020-09-15 04:57] LABS: BUN/CREATININE RATIO 36; GFR ESTIMATED > 60
[2020-09-15 04:59] LABS: MAGNESIUM 2.1 MG/DL (1.6-2.4)
[2020-09-15] MEDS: KCL 20 MEQ TAB (K-DUR) PO SCH (05:57)
[2020-09-15] MEDS: MAGNESIUM 1 GM/100 ML IVPB 100 ML IV SCH (05:57)
[2020-09-15] MEDS: LACTATED RINGERS 1,000 ML IV SCH ×2 (05:57→06:14)
[2020-09-15] MEDS: POTASSIUM CL 10MEQ/50ML IVPB 50 ML IV SCH (05:57)
[2020-09-15] MEDS: CEFEPIME 1,000 MG/SWFI 10 ML IV PUSH IV SCH ×6 (06:08→22:00)
[2020-09-15] MEDS: inSUlin ASPART (NovoLOG) 1 UNIT/0.01 ML (CHARGE PER UNIT) SQ PRN ×2 (06:09→18:06)
[2020-09-15] MEDS ORDERED: CEFEPIME INJECTION 2,000 MG in WATER (STERILE) FOR INJECTION 20 ML IV SCH (09:00)
[2020-09-15] MEDS: PANTOPRAZOLE 40 MG (PROTONIX) VIAL IV SCH (09:12)
[2020-09-15] MEDS: LINEZOLID IVPB 300 ML IV SCH ×2 (09:13→21:45)
[2020-09-15 09:35] LABS: ABG BASE EXCESS 3.3 MMOL/L (-2.5-2.5); ABG OXYGEN SATURATION 92 % (94-100); ABG PCO2 41 MMHG (35-45); ABG PH 7.44 (7.37-7.43); ABG PO2 69 MMHG (79-93); ABG TCO2 28.5 MMOL/L (21.0-31.0)
[2020-09-15 09:36] LABS: ALLENS TEST YES-POS; INSPIRED O2 100%; PATIENT TEMP 98.2
[2020-09-15] MEDS: TACROLIMUS 0.5 MG (PROGRAF) CAP NON-FORMULARY PO SCH ×2 (12:31→18:06)
--- NOTE | 2020-09-15 12:46 | Diagnostic Imaging Report ---
INDICATION: PICC line placement. EXAMINATION: Frontal chest obtained at 12:33 p.m. and is compared to yesterday. FINDINGS: Heart is mildly enlarged. Patchy bilateral infiltrates are unchanged compared to the previous study. Right-sided PICC line goes up into the right internal jugular vein and loops back down to the upper chest, probably at the base of the internal jugular vein. IMPRESSION: Abnormal position of PICC line which is looped in the right internal jugular vein. Unchanged bilateral infiltrates and mild cardiomegaly. Dictated by: Dictated on workstation # [id number]
--- NOTE | 2020-09-15 15:33 | NUR ---
"RD ASSESSMENT PMHx: HLD; renal transplant; DM; gout; HTN PT INTERACTION: Note pt is currently in COVID isolation, per chart review. Note all diet information for nutrition assessment is per Stacey RN or per chart review. Stacey states current appetite appears poor. Note avg PO intake <25% x2meal, per chart review. Stacey states no issues with nausea, vomiting, constipation, or diarrhea that she is aware of. Pt states last BM was 09/14 per Stacey. Note pt not currently on bowel regimen per chart review. Note unable to determine recent wt hx, per chart review. Note unable to determine current level of DM management, and note unable to determine recent HbA1c, per chart review. ABNORMAL NUTRITION-RELATED LAB VALUES LOW: HIGH: BUN 32; glu 296 Est. kcal needs: 9785-2047 kcal | 20-25 kcal/kg Est. Pro needs: 64-79 g Pro | 0.8-1.0 g Pro/kg PES STATEMENT: Inadequate oral intake (NI-2.1) related to loss of appetite as evidenced by chart review, communication with RN, and avg PO intake <25% x2meal. INTERVENTION: Continue with current diet order of CHO 60g/m 3snack diet. Add Glucerna (vary) with meals TID, for increased kcal intake. Provides 220 kcal and 10 g Pro per serving. Did not offer diet education on DM management, d/t COVID isolation. Will continue to follow and reassess as pt needs, intake, and status change. Lc Berger, MS RD LD"
--- NOTE | 2020-09-15 15:56 | Diagnostic Imaging Report ---
Portable semi-erect AP chest at 3:26 PM INDICATION: Dyspnea The exam performed earlier today at 2:29 PM noted a malpositioned right-sided PICC line. In the interval since the prior study, the right-sided PIC line has been removed. Also, in the interval since the prior exam, a left sided PICC line has been inserted. The tip of the left-sided PICC line is not visualized as the line is directed cephalad in the region of the internal jugular vein. I would recommend that this line be repositioned so that the tip overlies the distal superior vena cava. There is no sign of a pneumothorax. The alveolar/interstitial infiltrates involving both lungs and the cardiomegaly seen previously are again evident and not significantly changed. The mediastinum is not widened. The osseous structures are intact. IMPRESSION: 1. The malpositioned right-sided PICC line has been removed. A new PICC line has been inserted on the left but the tip of the new line overlies the internal jugular vein. This line should be repositioned as well. 2. The overall appearance of the chest itself is otherwise stable. Report called to patient's nurse (Sandra) at 3:53 PM 09/15/2020/cb Dictated by: Dictated on workstation # [id number]
--- NOTE | 2020-09-15 17:29 | NUR ---
PT HAVING INCREASED ANXIETY. ATTEMPTS TO CALM PATIENT MADE. SHE STATES DYSPNEA IS INCREASED. THIS RN SPOKE WITH PATIENT ABOUT PRONING, SHE WILL ATTEMPT. PATIENT ASSISTED TO LAYING HIGH ONTO HER LEFT SIDE/ABDOMEN. SHE WILL ATTEMPT THIS LONG SHE CAN.
[2020-09-15] MEDS: LORazepam INJ 2 MG/ML (ATIVAN) VIAL IVP PRN (18:03)
[2020-09-15] MEDS: ENOXAPARIN 40 MG/0.4 ML (LOVENOX) SYR SC SCH (18:06)
--- NOTE | 2020-09-15 18:41 | NUR ---
SPOKE WITH PICC RN REGARDING CXR AND LEFT PICC. MAIKEL, WHO IS A PICC RN IS COMING IN AT MIDNIGHT TONIGHT AND CAN READJUST LINE. PICC RN VERIFIED IT IS OK TO LEAVE PICC IN UNTIL THEN. PICC NOT BEING USED AT THIS TIME.
[2020-09-16] VITALS (27 sets, daily range): BP systolic 118–168; BP diastolic 64–110
[2020-09-16] MEDS ORDERED: inSUlin ASPART (NovoLOG) 1 UNIT/0.01 ML (CHARGE PER UNIT) SQ SCH
[2020-09-16] MEDS: RT-ALBUTEROL INHALER HFA (VENTOLIN HFA) 18 GM IH SCH ×6 (01:09→23:05)
--- NOTE | 2020-09-16 01:30 | NUR ---
this rn to bedside to attempt to reposition picc. xray showed picc malpositioned in left IJ. unable to reposition picc. when drawn back, unable to reinsert competely. picc dc'd. access maintained. new picc placed with sterile technique. xray obtained. picc tip appears to be over SVC. will leave in place et await xray report in chaz dominguez rn at bedside. aware of plan.
[2020-09-16 03:42] LABS: ABG BASE EXCESS 4.8 MMOL/L (-2.5-2.5); ABG OXYGEN SATURATION 97 % (94-100); ABG PCO2 42 MMHG (35-45); ABG PH 7.45 (7.37-7.43); ABG PO2 89 MMHG (79-93)
[2020-09-16 03:44] LABS: ALLENS TEST YES-POS; INSPIRED O2 80%; PATIENT TEMP 37.2; VENTILATOR NO
[2020-09-16 03:57] LABS: BUN/CREATININE RATIO 28; CALCIUM 9.2 MG/DL (8.5-10.1); CARBON DIOXIDE 25 MMOL/L (21-32); CHLORIDE 99 MMOL/L (98-107); CREATININE SERUM 0.85 MG/DL (0.60-1.30); GFR ESTIMATED > 60; GLUCOSE 348 MG/DL (70-105); MAGNESIUM 2.1 MG/DL (1.6-2.4); PHOSPHORUS 2.3 MG/DL (2.3-4.7); POTASSIUM 4.4 MMOL/L (3.6-5.0); SODIUM 139 MMOL/L (135-145)
--- NOTE | 2020-09-16 04:11 | Pulmonary Progress Note ---
Subjective Time Seen by a Provider: 04:10 Sepsis Event Evaluation Height, Weight, BMI Height: 5'4.00" Weight: 190lbs. 0oz. 86.350247ti; 30.26 BMI Method:Stated Focused Exam Lactate Level 09/14/20 12:25: Lactic Acid Level 2.16*H 09/14/20 16:10: Lactic Acid Level 1.45 09/15/20 03:20: Lactic Acid Level 1.25 Exam Exam Vital Signs Date Time Temp Pulse Resp B/P (MAP) Pulse Ox O2 Delivery O2 Flow Rate FiO2 09/16/20 02:13 85 31 95 80.00 09/16/20 01:00 86 09/16/20 00:00 87 33 149/100 (116) 96 NIV Bilevel 80.00 09/15/20 23:00 90 33 155/109 (124) 93 NIV Bilevel 80.00 09/15/20 22:00 85 32 159/109 (126) 94 NIV Bilevel 80.00 09/15/20 21:16 91 34 95 80.00 09/15/20 21:00 88 32 154/109 (124) 96 NIV Bilevel 80.00 09/15/20 20:03 NIV Bilevel 80.00 09/15/20 20:00 94 NIV Bilevel 80 09/15/20 20:00 88 31 165/93 (117) 92 NIV Bilevel 75.00 09/15/20 19:00 94 09/15/20 19:00 91 13 159/117 (131) 94 NIV Bilevel 75.00 09/15/20 18:26 89 38 90 75.00 09/15/20 18:10 36.8 09/15/20 18:00 93 22 175/112 (133) NIV Bilevel 75.00 09/15/20 17:00 88 16 155/105 (122) 96 NIV Bilevel 75.00 09/15/20 16:00 87 38 160/111 (127) 93 NIV Bilevel 75.00 09/15/20 15:32 NIV Bilevel 75.00 09/15/20 15:00 84 38 92 Vapotherm 40.00 100.00 09/15/20 14:24 86 37 90 50.00 09/15/20 14:02 36.5 09/15/20 14:00 88 25 182/94 (123) 90 Vapotherm 40.00 100.00 09/15/20 13:00 89 35 184/105 (131) 96 Vapotherm 40.00 100.00 09/15/20 12:47 40.00 100.00 09/15/20 12:20 88 09/15/20 12:00 88 23 177/93 (121) 89 Vapotherm 40.00 65.00 09/15/20 11:18 91 Vapotherm 40.00 55 09/15/20 11:00 82 38 159/101 (120) 96 Vapotherm 40.00 65.00 09/15/20 10:00 81 14 167/93 (117) 96 Vapotherm 40.00 65.00 09/15/20 09:45 97 NIV Bilevel 55 09/15/20 09:36 36.3 79 36 136/99 96 Vapotherm 40.00 100 09/15/20 09:35 Vapotherm 40.00 65.00 09/15/20 09:21 36.8 83 36 155/101 95 NIV Bilevel 50 09/15/20 09:20 Vapotherm 40.00 100.00 09/15/20 09:00 79 30 164/94 (117) 97 NIV Bilevel 80.00 09/15/20 08:00 73 31 109/81 (90) 96 NIV Bilevel 80.00 09/15/20 07:00 81 09/15/20 07:00 80 121/64 (83) 95 NIV Bilevel 80.00 09/15/20 06:59 80 24 96 65.00 09/15/20 06:00 80 36 146/79 (101) 97 NIV Bilevel 80.00 09/15/20 05:00 87 36 121/75 (90) 98 NIV Bilevel 80.00 I & O 09/16/20 07:00 Intake Total 270 ml Output Total 1700 ml Balance -1430 ml Height & Weight Height: 5'4.00" Weight: 190lbs. 0oz. 86.796479nh; 30.26 BMI Method:Stated General Appearance: Anxious, Moderate Distress Capillary Refill: Less Than 3 Seconds Gastrointestinal: normal bowel sounds, non tender, soft Results Lab Laboratory Tests 09/14/20 12:25 09/15/20 03:20 09/16/20 03:35 Assessment/Plan Assessment/Plan Acute respiratory failure secondary to COVID-19 - 09/04 -Pt does not meet [place]'s criteria for Remdesivir (symptom onset within 10days) -Proceed with CVP -Currently requiring 80% BiPAP -Titrate Fi02 down -Repeat DDimer -Give 40mg IV x 1 -Repeat Labs penidng PNA -Wong cultures pending -Currently on Cefepime and Vanco -Change Vanco to Zyvox secondary to chronic renal failure ( I suspect her renal failure is going to get worse) Acute on chronic renal failure with hx of renal transplant -Monitor -Start home anti-rejection meds -Increase IVF to 150 for now. metabolic acidosis wtih dehydration -Check [place] -IVF -Monitor Hyperglycemia - SSI -Monitor DVT/GI ppx -continue lovenox -Add Protonix Critical Care: Critically Ill Patient BALAJI MCINTOSH DO Sep 16, 2020 04:11
[2020-09-16] MEDS ORDERED: FUROSEMIDE 40 MG/4 ML INJ (LASIX) IVP ONE (04:15)
[2020-09-16] MEDS: MAGNESIUM 1 GM/100 ML IVPB 100 ML IV SCH (05:16)
[2020-09-16] MEDS: POTASSIUM CL 10MEQ/50ML IVPB 50 ML IV SCH (05:16)
[2020-09-16] MEDS: CEFEPIME 1,000 MG/SWFI 10 ML IV PUSH IV SCH ×6 (05:16→21:04)
[2020-09-16] MEDS: KCL 20 MEQ TAB (K-DUR) PO SCH (05:16)
[2020-09-16] MEDS: inSUlin ASPART (NovoLOG) 1 UNIT/0.01 ML (CHARGE PER UNIT) SC SCH ×4 (05:17→21:20)
[2020-09-16] MEDS: LACTATED RINGERS 1,000 ML IV SCH (06:54)
--- NOTE | 2020-09-16 07:11 | Diagnostic Imaging Report ---
Clinical indication: Evaluate line placement. Exam: Portable chest x-ray semiupright view. Comparisons: Chest x-ray dated 09/15/2020. Findings: Interval repositioning of the previously seen left PICC line which now is in the caval atrial junction region. There is improved aeration of both lungs with residual mild airspace opacities in both lung bases and midlung field regions. There is no pleural effusion or pneumothorax. Stable cardiomegaly with no significant pulmonary vascular congestion. The remainder of this exam shows no significant interval change compared to the prior study of comparison. IMPRESSION: 1: There is interval repositioning of the previously seen left PICC line with tip now overlying the caval atrial junction. 2: There is slight improved aeration of both lungs with residual mild bibasilar and midlung field airspace opacities. 3: The remainder of this exam shows no significant interval change compared to the prior study of comparison. Dictated by: Dictated on workstation # [id number]
[2020-09-16 07:21] LABS: BASOPHILS # (AUTO) 0.1 10^3/uL (0.0-0.1); BASOPHILS % (AUTO) 0 % (0-10); EOSINOPHILS % (AUTO) 0 % (0-10); HEMATOCRIT 40 % (35-52); HEMOGLOBIN 12.6 g/dL (11.5-16.0); LYMPHOCYTES # (AUTO) 0.9 10^3/uL (1.0-4.0); LYMPHOCYTES % (AUTO) 7 % (12-44); MEAN CORPUSCULAR HEMOGLOBIN 28 pg (25-34); MEAN CORPUSCULAR HGB CONC 32 g/dL (32-36); MEAN CORPUSCULAR VOLUME 89 fL (80-99); MEAN PLATELET VOLUME 10.8 fL (9.0-12.2); MONOCYTES # (AUTO) 0.6 10^3/uL (0.0-1.0); MONOCYTES % (AUTO) 4 % (0-12); NEUTROPHILS # (AUTO) 11.9 10^3/uL (1.8-7.8); NEUTROPHILS % (AUTO) 84 % (42-75); PLATELET COUNT 180 10^3/uL (130-400); WHITE BLOOD COUNT 14.2 10^3/uL (4.3-11.0)
--- NOTE | 2020-09-16 08:17 | NUR ---
ok to use left upper arm picc line per richa picc rn.
[2020-09-16] MEDS: TACROLIMUS 0.5 MG (PROGRAF) CAP NON-FORMULARY PO SCH ×2 (09:17→16:25)
[2020-09-16] MEDS: LINEZOLID IVPB 300 ML IV SCH ×2 (09:17→21:04)
[2020-09-16] MEDS: LORazepam INJ 2 MG/ML (ATIVAN) VIAL IVP PRN ×2 (09:17→21:25)
[2020-09-16] MEDS: PANTOPRAZOLE 40 MG (PROTONIX) VIAL IV SCH (09:17)
[2020-09-16] MEDS: [UNRECOGNIZED DRUG - OTHER] PO SCH ×2 (10:14→21:04)
[2020-09-16] MEDS ORDERED: PRED5TAB PO (11:15)
--- NOTE | 2020-09-16 11:16 | NUR ---
UNABLE TO REACH PT, THEREFORE I CALLED HER (ESTEFANIA) TO COMPLETE THE MED REC PT WAS RECENTLY HERE AND I COMPLETED THE MED REC ON 09-08-2020 (THERE IS A NOTE FROM THAT DATE WITH MORE INFORMATION IF NEEDED) AND TODAY WHEN I SPOKE WITH ESTEFANIA AND WAS TOLD NOTHING HAS CHANGED WITH HER HOME MEDICATIONS AND THAT SHE HAS FINISHED CEFDINIR AND DEXAMETHASONE. I REMOVED THOSE 2 MEDICATIONS FROM THE MED REC. THE DISCHARGE ORDERS FROM HER LAST STAY INSTRUCTED THE PT TO QUIT TAKING PREDNISONE 5MG UNTIL SHE FINISHED DEXAMETHASONE AND THEN WAIT 4 MORE DAYS BEFORE STARTING AGAIN. I DID KEEP PREDNISONE 5MG ON THE MED REC (EVEN THOUGH THE PT IS NOT SCHEDULED TO RESUME UNTIL 09-18-2020) FOR DISCHARGE PURPOSES
--- NOTE | 2020-09-16 15:34 | NUR ---
During care rounds, it was noted that pt has been refusing meals. Recommend add Glucerna to meals TID, for increased kcal intake. Provides 220 kcal and 10 g Pro per serving. Will continue to follow and reassess as pt needs, intake, and status change. Lc Berger, MS RD LD
[2020-09-16] MEDS: ENOXAPARIN 40 MG/0.4 ML (LOVENOX) SYR SC SCH (16:25)
--- NOTE | 2020-09-16 18:57 | Physician Query Clarification ---
"Physician Query-General Query to Physician: The medical record reflects the following clinical scenario: History/Risk factors: Covid 19, Immunosuppression therapy Clinical Findings: RR 28, Bipap on 100% needed to keep 02 sats up. CXR: patchy bilateral pulmonary infiltrates, consistent with pneumonia. Treatment: Bipap, IV ABX, ICU, Breathing RX Question: Do you agree with the impression of Pneumonia per Dr. Rangel? If you agree, please document in Progress Notes or Discharge Summary. 1. Yes; will document Pneumonia due to Covid 19 present on admission in the Progress Notes 2. No; will continue to document Covid 19 in the Progress Notes 3. Other; will document explanation of clinical findings 4. Clinically undetermined; no explanation for clinical findings Please remember a lack of response to the above will prompt a phone page by C DI/coding staff. In responding to this query, please exercise your independent professional judgment. The purpose of this communication is to more accurately reflect the complexity of your patients condition. The fact that a question is asked does not imply that any particular answer is desired or expected. Thank you for timely response to this clarification. Roseann Weber, MSN, RN RN Specialist-Clinical Doc Improvement CD -Health Info Mgmt Operations [address] [facility] t: [phone] | f: [phone] If you are unable to reach me at my extension, I may be working from home. Please contact me at [phone] PHYSICIAN RESPONSE: Based on the clinical findings in the record, please respond to the query above on this document as an addendum. Physician Response: Physician Response 1 If you have questions please contact: Pharmacy Technician Assistant: Ext: Thank you for your time and cooperation. Clinical Wellness Rn/Pharmacy Technician Assistant This is a permanent part of the medical record ROSEANN WEBER Sep 16, 2020 18:57 GHULAM THORNTON MD Sep 19, 2020 20:34"
[2020-09-17] VITALS (30 sets, daily range): BP systolic 124–167; BP diastolic 80–105
[2020-09-17] MEDS: RT-ALBUTEROL INHALER HFA (VENTOLIN HFA) 18 GM IH SCH ×6 (03:43→23:42)
--- NOTE | 2020-09-17 04:04 | Pulmonary Progress Note ---
Subjective Time Seen by a Provider: 03:58 Subjective/Events-last exam Pt is still requiring BiPAP currently at 100%. Sepsis Event Evaluation Height, Weight, BMI Height: 5'4.00" Weight: 190lbs. 0oz. 86.052618rm; 30.26 BMI Method:Stated Focused Exam Lactate Level 09/14/20 12:25: Lactic Acid Level 2.16*H 09/14/20 16:10: Lactic Acid Level 1.45 09/15/20 03:20: Lactic Acid Level 1.25 Exam Exam Vital Signs Date Time Temp Pulse Resp B/P (MAP) Pulse Ox O2 Delivery O2 Flow Rate FiO2 09/17/20 03:53 NIV Bilevel 90.00 09/17/20 03:40 78 28 93 100.00 09/17/20 03:00 80 32 155/86 (109) 96 NIV Bilevel 100.00 09/17/20 02:00 81 30 154/105 (121) 96 NIV Bilevel 100.00 09/17/20 01:00 81 33 145/97 (113) 95 NIV Bilevel 100.00 09/17/20 01:00 82 09/17/20 00:00 83 31 143/101 (115) 95 NIV Bilevel 100.00 09/16/20 23:05 94 37 95 100.00 09/16/20 23:00 81 36 134/98 (110) 96 NIV Bilevel 100.00 09/16/20 22:00 84 26 142/90 (107) 94 NIV Bilevel 100.00 09/16/20 21:00 89 25 135/107 (116) 96 NIV Bilevel 100.00 09/16/20 20:00 93 NIV Bilevel 100 09/16/20 20:00 83 28 168/110 (129) 94 NIV Bilevel 100.00 09/16/20 20:00 36.1 09/16/20 19:00 85 09/16/20 19:00 86 29 151/101 (118) 97 NIV Bilevel 100.00 09/16/20 18:00 86 34 146/105 (119) 95 NIV Bilevel 100.00 09/16/20 17:35 NIV Bilevel 100.00 09/16/20 17:00 84 38 151/106 (121) 93 Vapotherm 40.00 80.00 09/16/20 16:00 36.4 09/16/20 16:00 98 32 131/64 (86) 92 Vapotherm 40.00 80.00 09/16/20 15:01 35.3 09/16/20 15:00 93 37 133/82 (99) 93 Vapotherm 40.00 80.00 09/16/20 14:05 Vapotherm 40.00 80.00 09/16/20 14:03 99 Vapotherm 40.00 100 09/16/20 14:00 86 37 122/69 (86) 99 Vapotherm 40.00 100.00 09/16/20 13:08 Vapotherm 40.00 100.00 09/16/20 13:05 86 09/16/20 13:00 93 8 138/84 (102) 100 NIV Bilevel 80.00 09/16/20 12:00 79 29 130/81 (97) 98 NIV Bilevel 80.00 09/16/20 11:13 35.3 09/16/20 11:00 82 32 159/101 (120) 94 NIV Bilevel 80.00 09/16/20 10:36 83 37 95 80.00 09/16/20 10:12 NIV Bilevel 80.00 09/16/20 10:00 86 32 132/83 (99) 95 NIV Bilevel 90.00 09/16/20 09:34 NIV Bilevel 90.00 09/16/20 09:00 89 18 140/93 (109) 94 NIV Bilevel 80.00 09/16/20 08:14 36.8 NIV Bilevel 80.00 09/16/20 08:02 89 09/16/20 08:00 95 NIV Bilevel 80 09/16/20 08:00 93 28 136/99 (111) 96 NIV Bilevel 80.00 09/16/20 07:01 86 32 93 80.00 09/16/20 07:00 89 28 118/88 (98) 93 NIV Bilevel 80.00 09/16/20 06:00 92 31 136/107 (117) 95 NIV Bilevel 80.00 09/16/20 05:00 81 31 140/101 (114) 94 NIV Bilevel 80.00 09/16/20 04:00 83 33 152/101 (118) 95 NIV Bilevel 80.00 I & O 09/17/20 07:00 Intake Total 560 ml Output Total 1125 ml Balance -565 ml Height & Weight Height: 5'4.00" Weight: 190lbs. 0oz. 86.329076qm; 30.26 BMI Method:Stated General Appearance: Anxious, Moderate Distress Capillary Refill: Less Than 3 Seconds Gastrointestinal: normal bowel sounds, non tender, soft Results Lab Laboratory Tests 09/16/20 03:30 09/16/20 03:35 Assessment/Plan Assessment/Plan Acute respiratory failure secondary to COVID-19 - 09/04 -Pt does not meet [place]'s criteria for Remdesivir (symptom onset within 10days) -Proceed with CVP -Currently requiring 100% BiPAP -Titrate Fi02 down -Repeat DDimer -Give lasix 40mg IV x 1 -Repeat Labs penidng - PCT has been negative. No fevers. Pt is still very hypoxic. Will increase Lovenox to theraputic dosing and tx as presumptive PE. Unable to do CTA. PNA -Wong cultures pending -Currently on Cefepime and Zyvox -Repeat PCT Acute on chronic renal failure with hx of renal transplant -Monitor -Start home anti-rejection meds -IVF are at 30cc/hr Hyperglycemia - SSI -Monitor -Increase Accu chest to Q 4 DVT/GI ppx -continue lovenox -Add Protonix BALAJI MCINTOSH DO Sep 17, 2020 04:04
[2020-09-17 04:07] LABS: BASOPHILS % (AUTO) 0 % (0-10); EOSINOPHILS % (AUTO) 0 % (0-10); HEMATOCRIT 41 % (35-52); HEMOGLOBIN 13.3 g/dL (11.5-16.0); LYMPHOCYTES # (AUTO) 1.3 10^3/uL (1.0-4.0); LYMPHOCYTES % (AUTO) 9 % (12-44); MEAN CORPUSCULAR HEMOGLOBIN 28 pg (25-34); MEAN CORPUSCULAR HGB CONC 33 g/dL (32-36); MEAN CORPUSCULAR VOLUME 87 fL (80-99); MONOCYTES # (AUTO) 0.6 10^3/uL (0.0-1.0); MONOCYTES % (AUTO) 4 % (0-12); NEUTROPHILS # (AUTO) 11.8 10^3/uL (1.8-7.8); NEUTROPHILS % (AUTO) 82 % (42-75); PLATELET COUNT 217 10^3/uL (130-400); WHITE BLOOD COUNT 14.4 10^3/uL (4.3-11.0)
[2020-09-17 04:19] LABS: CHLORIDE 98 MMOL/L (98-107); POTASSIUM 4.2 MMOL/L (3.6-5.0); SODIUM 138 MMOL/L (135-145)
[2020-09-17 04:20] LABS: CALCIUM 9.3 MG/DL (8.5-10.1)
[2020-09-17 04:21] LABS: GLUCOSE 238 MG/DL (70-105)
[2020-09-17 04:22] LABS: CARBON DIOXIDE 27 MMOL/L (21-32)
[2020-09-17 04:24] LABS: PHOSPHORUS 3.1 MG/DL (2.3-4.7)
[2020-09-17 04:25] LABS: CREATININE SERUM 0.89 MG/DL (0.60-1.30); GFR ESTIMATED > 60
[2020-09-17 04:26] LABS: BUN/CREATININE RATIO 38
[2020-09-17 04:27] LABS: MAGNESIUM 2.1 MG/DL (1.6-2.4)
[2020-09-17] MEDS: POTASSIUM CL 10MEQ/50ML IVPB 50 ML IV SCH (05:50)
[2020-09-17] MEDS: KCL 20 MEQ TAB (K-DUR) PO SCH (05:50)
[2020-09-17] MEDS: MAGNESIUM 1 GM/100 ML IVPB 100 ML IV SCH (05:50)
[2020-09-17] MEDS: CEFEPIME 1,000 MG/SWFI 10 ML IV PUSH IV SCH ×6 (05:57→20:21)
[2020-09-17] MEDS: inSUlin ASPART (NovoLOG) 1 UNIT/0.01 ML (CHARGE PER UNIT) SC SCH ×6 (05:58→23:36)
[2020-09-17] MEDS: [UNRECOGNIZED DRUG - OTHER] PO SCH ×2 (08:10→20:21)
[2020-09-17] MEDS: LINEZOLID IVPB 300 ML IV SCH ×2 (08:11→20:21)
[2020-09-17] MEDS: LORazepam INJ 2 MG/ML (ATIVAN) VIAL IVP PRN ×2 (08:11→20:31)
[2020-09-17] MEDS: PANTOPRAZOLE 40 MG (PROTONIX) VIAL IV SCH (08:11)
[2020-09-17] MEDS: ENOXAPARIN 40 MG/0.4 ML (LOVENOX) SYR SC SCH ×2 (08:16→20:21)
[2020-09-17] MEDS: TACROLIMUS 0.5 MG (PROGRAF) CAP NON-FORMULARY PO SCH ×2 (08:22→20:31)
[2020-09-17] MEDS: LACTATED RINGERS 1,000 ML IV SCH (14:07)
[2020-09-18] VITALS (23 sets, daily range): BP systolic 109–155; BP diastolic 70–115
[2020-09-18] MEDS: RT-ALBUTEROL INHALER HFA (VENTOLIN HFA) 18 GM IH SCH ×6 (03:01→22:50)
[2020-09-18 03:18] LABS: BASOPHILS % (AUTO) 0 % (0-10); EOSINOPHILS % (AUTO) 0 % (0-10); HEMATOCRIT 41 % (35-52); HEMOGLOBIN 13.7 g/dL (11.5-16.0); LYMPHOCYTES # (AUTO) 1.7 10^3/uL (1.0-4.0); LYMPHOCYTES % (AUTO) 11 % (12-44); MEAN CORPUSCULAR HEMOGLOBIN 28 pg (25-34); MEAN CORPUSCULAR HGB CONC 33 g/dL (32-36); MEAN CORPUSCULAR VOLUME 86 fL (80-99); MEAN PLATELET VOLUME 10.9 fL (9.0-12.2); MONOCYTES # (AUTO) 0.9 10^3/uL (0.0-1.0); MONOCYTES % (AUTO) 6 % (0-12); NEUTROPHILS # (AUTO) 13.1 10^3/uL (1.8-7.8); NEUTROPHILS % (AUTO) 80 % (42-75); PLATELET COUNT 224 10^3/uL (130-400); WHITE BLOOD COUNT 16.5 10^3/uL (4.3-11.0)
[2020-09-18 03:28] LABS: CHLORIDE 101 MMOL/L (98-107); POTASSIUM 4.3 MMOL/L (3.6-5.0); SODIUM 137 MMOL/L (135-145)
[2020-09-18 03:30] LABS: CALCIUM 9.1 MG/DL (8.5-10.1); GLUCOSE 156 MG/DL (70-105)
[2020-09-18 03:32] LABS: CARBON DIOXIDE 22 MMOL/L (21-32)
[2020-09-18 03:34] LABS: CREATININE SERUM 0.78 MG/DL (0.60-1.30); GFR ESTIMATED > 60; PHOSPHORUS 2.6 MG/DL (2.3-4.7)
[2020-09-18 03:35] LABS: BUN/CREATININE RATIO 37
--- NOTE | 2020-09-18 04:10 | Pulmonary Progress Note ---
Subjective Time Seen by a Provider: 04:09 Sepsis Event Evaluation Height, Weight, BMI Height: 5'4.00" Weight: 190lbs. 0oz. 86.115917ry; 30.26 BMI Method:Stated Exam Exam Vital Signs Date Time Temp Pulse Resp B/P (MAP) Pulse Ox O2 Delivery O2 Flow Rate FiO2 09/18/20 03:12 NIV Bilevel 50.00 09/18/20 03:01 88 27 93 50.00 09/18/20 03:00 84 30 132/91 (105) 91 NIV Bilevel 55.00 09/18/20 02:00 84 31 121/84 (96) 93 NIV Bilevel 55.00 09/18/20 01:00 85 33 130/81 (97) 93 NIV Bilevel 55.00 09/18/20 01:00 85 09/18/20 00:00 84 30 144/93 (110) 93 NIV Bilevel 55.00 09/17/20 23:42 84 24 93 50.00 09/17/20 23:00 84 26 141/90 (107) 92 NIV Bilevel 55.00 09/17/20 22:00 86 17 167/100 (122) 98 NIV Bilevel 55.00 09/17/20 21:00 86 22 146/93 (110) 96 NIV Bilevel 55.00 09/17/20 20:00 93 NIV Bilevel 55 09/17/20 20:00 79 26 125/80 (95) 94 NIV Bilevel 55.00 09/17/20 19:00 80 19 143/84 (103) 92 NIV Bilevel 55.00 09/17/20 19:00 91 09/17/20 18:26 88 29 95 55.00 09/17/20 18:00 80 34 142/83 (102) 94 NIV Bilevel 55.00 09/17/20 17:00 83 34 133/87 (102) 93 NIV Bilevel 55.00 09/17/20 16:00 36.0 09/17/20 16:00 81 33 124/87 (99) 93 NIV Bilevel 55.00 09/17/20 15:00 77 36 133/85 (101) 92 NIV Bilevel 55.00 09/17/20 14:52 75 36 95 55.00 09/17/20 14:00 80 26 140/91 (107) 93 NIV Bilevel 75.00 09/17/20 13:54 36.4 09/17/20 13:00 80 27 157/101 (119) 95 NIV Bilevel 75.00 09/17/20 12:57 80 09/17/20 12:00 78 32 144/89 (107) 93 NIV Bilevel 75.00 09/17/20 11:00 78 33 152/92 (112) 93 NIV Bilevel 75.00 09/17/20 10:31 81 36 95 100.00 09/17/20 10:00 80 32 136/103 (114) 96 NIV Bilevel 100.00 09/17/20 09:00 81 33 128/92 (104) 97 NIV Bilevel 100.00 09/17/20 08:38 NIV Bilevel 100.00 09/17/20 08:00 88 Vapotherm 100 09/17/20 08:00 82 28 138/90 (106) 90 NIV Bilevel 60.00 09/17/20 07:57 36.4 09/17/20 07:08 NIV Bilevel 60.00 09/17/20 07:00 81 31 141/104 (116) 89 NIV Bilevel 60.00 09/17/20 07:00 79 09/17/20 06:53 80 27 91 60.00 09/17/20 06:03 NIV Bilevel 60.00 09/17/20 06:00 79 28 132/93 (106) 93 NIV Bilevel 100.00 09/17/20 05:00 81 28 130/91 (104) 98 NIV Bilevel 100.00 I & O 09/18/20 07:00 Intake Total 300 ml Output Total 825 ml Balance -525 ml Height & Weight Height: 5'4.00" Weight: 190lbs. 0oz. 86.153798lh; 30.26 BMI Method:Stated General Appearance: Anxious, Moderate Distress Capillary Refill: Less Than 3 Seconds Gastrointestinal: normal bowel sounds, non tender, soft Results Lab Laboratory Tests 09/17/20 03:50 09/18/20 03:10 Assessment/Plan Assessment/Plan Acute respiratory failure secondary to COVID-19 - 09/04 -Pt does not meet [place]'s criteria for Remdesivir (symptom onset within 10days) -Proceed with CVP -Currently requiring 100% BiPAP -Titrate Fi02 down -Repeat DDimer -Give lasix 40mg IV x 1 -Repeat Labs penidng - PCT has been negative. No fevers. Pt is still very hypoxic. Will increase Lovenox to theraputic dosing and tx as presumptive PE. Unable to do CTA. PNA -Wong cultures pending -Currently on Cefepime and Zyvox -Repeat PCT Acute on chronic renal failure with hx of renal transplant -Monitor -Start home anti-rejection meds -IVF are at 30cc/hr Hyperglycemia - SSI -Monitor -Increase Accu chest to Q 4 DVT/GI ppx -continue lovenox -Add Protonix BALAJI MCINTOSH DO Sep 18, 2020 04:10
[2020-09-18] MEDS ORDERED: morphine INJ 4 MG/ML 1 ML (VIAL/SYRINGE) IVP PRN (04:15)
[2020-09-18] MEDS: inSUlin ASPART (NovoLOG) 1 UNIT/0.01 ML (CHARGE PER UNIT) SC SCH ×6 (05:01→23:33)
[2020-09-18] MEDS: KCL 20 MEQ TAB (K-DUR) PO SCH (05:02)
[2020-09-18] MEDS: MAGNESIUM 1 GM/100 ML IVPB 100 ML IV SCH (05:02)
[2020-09-18] MEDS: POTASSIUM CL 10MEQ/50ML IVPB 50 ML IV SCH (05:02)
[2020-09-18] MEDS: CEFEPIME 1,000 MG/SWFI 10 ML IV PUSH IV SCH ×8 (06:46→23:32)
[2020-09-18] MEDS: LINEZOLID IVPB 300 ML IV SCH ×2 (08:18→20:17)
[2020-09-18] MEDS: TACROLIMUS 0.5 MG (PROGRAF) CAP NON-FORMULARY PO SCH ×2 (08:19→17:08)
[2020-09-18] MEDS: [UNRECOGNIZED DRUG - OTHER] PO SCH ×3 (08:20→21:00)
[2020-09-18] MEDS: LORazepam INJ 2 MG/ML (ATIVAN) VIAL IVP PRN (08:21)
[2020-09-18] MEDS: PANTOPRAZOLE 40 MG (PROTONIX) VIAL IV SCH (08:21)
[2020-09-18] MEDS: ENOXAPARIN 40 MG/0.4 ML (LOVENOX) SYR SC SCH ×2 (08:39→20:18)
[2020-09-18] MEDS: LACTATED RINGERS 1,000 ML IV SCH ×2 (12:25→23:35)
[2020-09-19] VITALS (28 sets, daily range): BP systolic 122–167; BP diastolic 76–166
[2020-09-19 02:47] LABS: BASOPHILS % (AUTO) 0 % (0-10); EOSINOPHILS % (AUTO) 0 % (0-10); HEMATOCRIT 40 % (35-52); LYMPHOCYTES # (AUTO) 1.3 10^3/uL (1.0-4.0); LYMPHOCYTES % (AUTO) 12 % (12-44); MEAN CORPUSCULAR HEMOGLOBIN 28 pg (25-34); MEAN CORPUSCULAR HGB CONC 33 g/dL (32-36); MEAN CORPUSCULAR VOLUME 86 fL (80-99); MEAN PLATELET VOLUME 10.9 fL (9.0-12.2); MONOCYTES # (AUTO) 0.6 10^3/uL (0.0-1.0); MONOCYTES % (AUTO) 6 % (0-12); NEUTROPHILS # (AUTO) 8.9 10^3/uL (1.8-7.8); NEUTROPHILS % (AUTO) 78 % (42-75); PLATELET COUNT 184 10^3/uL (130-400); WHITE BLOOD COUNT 11.4 10^3/uL (4.3-11.0)
[2020-09-19] MEDS: RT-ALBUTEROL INHALER HFA (VENTOLIN HFA) 18 GM IH SCH ×6 (02:50→22:30)
[2020-09-19 02:57] LABS: CHLORIDE 100 MMOL/L (98-107); POTASSIUM 4.2 MMOL/L (3.6-5.0); SODIUM 138 MMOL/L (135-145)
[2020-09-19 02:58] LABS: CALCIUM 8.8 MG/DL (8.5-10.1)
[2020-09-19 02:59] LABS: GLUCOSE 166 MG/DL (70-105)
[2020-09-19 03:00] LABS: CARBON DIOXIDE 26 MMOL/L (21-32)
[2020-09-19 03:03] LABS: CREATININE SERUM 0.78 MG/DL (0.60-1.30); GFR ESTIMATED > 60
[2020-09-19 03:04] LABS: BUN/CREATININE RATIO 36
[2020-09-19] MEDS: inSUlin ASPART (NovoLOG) 1 UNIT/0.01 ML (CHARGE PER UNIT) SC SCH ×6 (03:28→23:41)
[2020-09-19] MEDS: POTASSIUM CL 10MEQ/50ML IVPB 50 ML IV SCH (03:28)
[2020-09-19] MEDS: MAGNESIUM 1 GM/100 ML IVPB 100 ML IV SCH (03:29)
[2020-09-19] MEDS: KCL 20 MEQ TAB (K-DUR) PO SCH (03:29)
--- NOTE | 2020-09-19 04:19 | Pulmonary Progress Note ---
Subjective Time Seen by a Provider: 04:15 Subjective/Events-last exam Currently on BiPAP at 60% Sepsis Event Evaluation Height, Weight, BMI Height: 5'4.00" Weight: 190lbs. 0oz. 86.689384zh; 30.26 BMI Method:Stated Exam Exam Vital Signs Date Time Temp Pulse Resp B/P (MAP) Pulse Ox O2 Delivery O2 Flow Rate FiO2 09/19/20 03:00 93 19 154/104 (121) 94 NIV Bilevel 60.00 09/19/20 02:51 87 32 97 90.00 09/19/20 02:00 84 29 156/94 (114) 98 NIV Bilevel 90.00 09/19/20 01:00 81 29 153/97 (115) 98 NIV Bilevel 90.00 09/19/20 01:00 81 09/19/20 00:01 36.0 09/19/20 00:00 86 28 162/113 (129) 97 NIV Bilevel 90.00 09/18/20 23:01 NIV Bilevel 90.00 09/18/20 23:00 93 22 155/115 (128) 96 NIV Bilevel 100.00 09/18/20 22:50 87 34 97 100.00 09/18/20 22:00 84 30 145/108 (120) 98 NIV Bilevel 100.00 09/18/20 21:00 85 24 130/110 (117) 98 NIV Bilevel 100.00 09/18/20 20:14 36.2 09/18/20 20:00 91 29 142/102 (115) 97 NIV Bilevel 100.00 09/18/20 20:00 93 NIV Bilevel 100 09/18/20 19:30 80 32 97 NIV Bilevel 100.00 09/18/20 19:23 89 27 94 100.00 09/18/20 19:00 88 09/18/20 19:00 88 38 135/95 (108) 94 NIV Bilevel 75.00 09/18/20 18:55 94 Vapotherm 35.00 75 09/18/20 18:00 87 34 155/106 (122) 93 NIV Bilevel 35.00 75.00 09/18/20 17:00 80 36 147/109 (122) 94 NIV Bilevel 35.00 75.00 09/18/20 16:00 87 29 155/103 (120) 91 Vapotherm 35.00 75.00 09/18/20 15:00 99 33 135/85 (102) Vapotherm 35.00 75.00 09/18/20 14:35 92 Vapotherm 35.00 75 09/18/20 14:00 92 35 111/70 (84) 92 NIV Bilevel 50.00 09/18/20 13:00 89 32 116/74 (88) 92 NIV Bilevel 50.00 09/18/20 13:00 83 09/18/20 12:04 36.4 09/18/20 12:00 84 29 128/83 (98) 94 NIV Bilevel 50.00 09/18/20 11:00 82 30 130/85 (100) 94 NIV Bilevel 50.00 09/18/20 10:28 87 34 94 65.00 09/18/20 10:00 81 37 125/85 (98) 95 NIV Bilevel 50.00 09/18/20 09:00 84 38 109/79 (89) 95 NIV Bilevel 50.00 09/18/20 08:00 87 27 136/92 (107) 91 NIV Bilevel 50.00 09/18/20 08:00 93 NIV Bilevel 55 09/18/20 07:49 36.2 09/18/20 07:00 90 09/18/20 07:00 85 31 138/98 (111) 93 NIV Bilevel 50.00 09/18/20 06:26 84 24 96 50.00 09/18/20 06:00 84 30 91 NIV Bilevel 50.00 09/18/20 05:00 88 30 91 NIV Bilevel 50.00 I & O 09/19/20 07:00 Intake Total 355 ml Output Total 815 ml Balance -460 ml Height & Weight Height: 5'4.00" Weight: 190lbs. 0oz. 86.789062yz; 30.26 BMI Method:Stated General Appearance: Anxious, Moderate Distress Capillary Refill: Less Than 3 Seconds Gastrointestinal: normal bowel sounds, non tender, soft Results Lab Laboratory Tests 09/18/20 03:10 09/19/20 02:15 Assessment/Plan Assessment/Plan Acute respiratory failure secondary to COVID-19 - 09/04 -Pt does not meet [place]'s criteria for Remdesivir (symptom onset within 10days) -s/p CVP -BiPAP currently at 60% -Vapotherm during the day -Lovenox theraputic dosing PNA -Wong cultures pending -Currently on Cefepime and Zyvox - D/C Zyvox Acute on chronic renal failure with hx of renal transplant -Monitor - home anti-rejection meds -IVF are at 30cc/hr Hyperglycemia - SSI -Monitor -Increase Accu chest to Q 4 DVT/GI ppx -continue lovenox - Protonix BALAJI MCINTOSH DO Sep 19, 2020 04:19
[2020-09-19] MEDS: CEFEPIME 1,000 MG/SWFI 10 ML IV PUSH IV SCH ×8 (05:25→23:43)
--- NOTE | 2020-09-19 06:20 | Diagnostic Imaging Report ---
INDICATION: Dyspnea Portable AP view of the chest is obtained with comparison made to study of 09/16/2020. There has been further worsening of predominantly peripheral airspace disease in both lungs. There is hypoventilation. No definite pneumothorax is identified. Monitoring leads overlie the chest. Oxygen tubing is also noted with stable appearance of left upper extremity PICC. IMPRESSION: Further worsening of bilateral pulmonary infiltrates which may be due to pneumonia and edema. Dictated by: Dictated on workstation # [id number]
[2020-09-19] MEDS: [UNRECOGNIZED DRUG - OTHER] PO SCH ×2 (08:39→20:23)
[2020-09-19] MEDS: TACROLIMUS 0.5 MG (PROGRAF) CAP NON-FORMULARY PO SCH ×2 (08:39→17:13)
[2020-09-19] MEDS: PANTOPRAZOLE 40 MG (PROTONIX) VIAL IV SCH (08:39)
[2020-09-19] MEDS: ENOXAPARIN 80 MG/0.8 ML (LOVENOX) SYR SC SCH ×2 (08:40→20:24)
[2020-09-19] MEDS: LORazepam INJ 2 MG/ML (ATIVAN) VIAL IVP PRN (09:06)
--- NOTE | 2020-09-19 15:01 | NUR ---
During care rounds, plan of care was to advance pt's diet to Clear Liquid diet. Would recommend diet advancement as medically able and as tolerated. Will continue to follow and reassess as pt needs, intake, and status change. Lc Berger, MS RD LD [phone] (cell)
[2020-09-19] MEDS ORDERED: LABETALOL HCL 20 MG/4 ML VIAL IV PRN (20:15)
[2020-09-19] MEDS: ALPRAZolam 0.5 MG (XANAX) TAB PO PRN (20:24)
[2020-09-19] MEDS: LACTATED RINGERS 1,000 ML IV SCH (23:43)
[2020-09-20] VITALS (27 sets, daily range): BP systolic 92–148; BP diastolic 69–155
[2020-09-20 03:38] LABS: BASOPHILS # (AUTO) 0.1 10^3/uL (0.0-0.1); BASOPHILS % (AUTO) 0 % (0-10); EOSINOPHILS % (AUTO) 0 % (0-10); HEMATOCRIT 42 % (35-52); LYMPHOCYTES % (AUTO) 13 % (12-44); MEAN CORPUSCULAR HEMOGLOBIN 29 pg (25-34); MEAN CORPUSCULAR HGB CONC 34 g/dL (32-36); MEAN CORPUSCULAR VOLUME 85 fL (80-99); MEAN PLATELET VOLUME 10.9 fL (9.0-12.2); MONOCYTES # (AUTO) 0.9 10^3/uL (0.0-1.0); MONOCYTES % (AUTO) 6 % (0-12); NEUTROPHILS # (AUTO) 11.9 10^3/uL (1.8-7.8); NEUTROPHILS % (AUTO) 76 % (42-75); PLATELET COUNT 187 10^3/uL (130-400); WHITE BLOOD COUNT 15.6 10^3/uL (4.3-11.0)
[2020-09-20 03:46] LABS: ABG BASE EXCESS 3.6 MMOL/L (-2.5-2.5); ABG OXYGEN SATURATION 95 % (94-100); ABG PCO2 39 MMHG (35-45); ABG PH 7.46 (7.37-7.43); ABG PO2 74 MMHG (79-93); ABG TCO2 28.6 MMOL/L (21.0-31.0)
[2020-09-20 03:47] LABS: ALLENS TEST YES-POS; INSPIRED O2 85%; PATIENT TEMP 36.4; VENTILATOR NO
[2020-09-20 03:48] LABS: CHLORIDE 102 MMOL/L (98-107); POTASSIUM 4.1 MMOL/L (3.6-5.0); SODIUM 140 MMOL/L (135-145)
[2020-09-20 03:49] LABS: CALCIUM 8.5 MG/DL (8.5-10.1)
[2020-09-20 03:50] LABS: GLUCOSE 116 MG/DL (70-105)
[2020-09-20 03:51] LABS: CARBON DIOXIDE 26 MMOL/L (21-32)
[2020-09-20] MEDS: POTASSIUM CL 10MEQ/50ML IVPB 50 ML IV SCH (03:51)
[2020-09-20] MEDS: inSUlin ASPART (NovoLOG) 1 UNIT/0.01 ML (CHARGE PER UNIT) SC SCH ×5 (03:51→20:12)
[2020-09-20] MEDS: KCL 20 MEQ TAB (K-DUR) PO SCH (03:52)
[2020-09-20 03:54] LABS: CREATININE SERUM 0.71 MG/DL (0.60-1.30); GFR ESTIMATED > 60; PHOSPHORUS 3.1 MG/DL (2.3-4.7)
[2020-09-20 03:55] LABS: BUN/CREATININE RATIO 37
[2020-09-20] MEDS: MAGNESIUM 1 GM/100 ML IVPB 100 ML IV SCH (03:57)
[2020-09-20 04:04] LABS: BAND NEUTROPHILS 1 %; LYMPHOCYTES % (MANUAL) 14 %; MONOCYTES % (MANUAL) 9 %; NEUTROPHILS % (MANUAL) 76 %; RBC MORPH NORMAL
--- NOTE | 2020-09-20 04:08 | Pulmonary Progress Note ---
Sepsis Event Evaluation Height, Weight, BMI Height: 5'4.00" Weight: 190lbs. 0oz. 86.017319gt; 30.26 BMI Method:Stated Exam Exam Vital Signs Date Time Temp Pulse Resp B/P (MAP) Pulse Ox O2 Delivery O2 Flow Rate FiO2 09/20/20 03:29 36.4 NIV Bilevel 85.00 09/20/20 01:34 85 29 95 85.00 09/19/20 23:47 36.1 NIV Bilevel 85.00 09/19/20 23:00 87 31 134/76 (95) 94 NIV Bilevel 85.00 09/19/20 22:25 85 29 95 90.00 09/19/20 22:00 92 32 126/84 (98) 93 NIV Bilevel 85.00 09/19/20 21:00 84 27 134/91 (105) 91 NIV Bilevel 85.00 09/19/20 20:30 92 NIV Bilevel 85 09/19/20 20:00 84 23 122/105 (111) 91 NIV Bilevel 85.00 09/19/20 19:25 36.2 83 22 161/112 (128) 92 NIV Bilevel 85.00 09/19/20 19:00 86 31 159/105 (123) 93 NIV Bilevel 90.00 09/19/20 19:00 86 09/19/20 18:35 85 29 95 90.00 09/19/20 18:00 93 31 155/108 (124) 93 NIV Bilevel 90.00 09/19/20 17:00 89 21 156/111 (126) 92 NIV Bilevel 90.00 09/19/20 16:00 85 28 167/96 (119) 93 NIV Bilevel 90.00 09/19/20 15:35 36.0 09/19/20 15:00 82 31 155/93 (113) 94 NIV Bilevel 90.00 09/19/20 14:00 83 29 138/91 (107) 91 NIV Bilevel 90.00 09/19/20 13:54 NIV Bilevel 90.00 09/19/20 13:44 85 29 91 90.00 09/19/20 13:00 86 29 166/103 (124) 87 Vapotherm 40.00 90.00 09/19/20 12:36 82 09/19/20 12:00 83 26 138/95 (109) 91 Vapotherm 40.00 90.00 09/19/20 11:09 36.8 09/19/20 11:00 84 31 149/92 (111) 93 Vapotherm 40.00 90.00 09/19/20 10:31 92 Vapotherm 40.00 90 09/19/20 10:00 90 28 130/81 (97) 91 Vapotherm 40.00 90.00 09/19/20 09:36 Vapotherm 40.00 90.00 09/19/20 09:00 90 30 151/105 (120) 90 NIV Bilevel 60.00 09/19/20 08:00 84 30 160/97 (118) 92 NIV Bilevel 60.00 09/19/20 08:00 92 Vapotherm 40.00 90 09/19/20 07:45 36.0 09/19/20 07:39 92 Vapotherm 30.00 70 09/19/20 07:00 89 28 136/103 (114) 93 NIV Bilevel 60.00 09/19/20 06:45 88 09/19/20 06:00 83 32 138/98 (111) 92 NIV Bilevel 60.00 09/19/20 05:00 81 29 139/99 (112) 92 NIV Bilevel 60.00 I & O 09/20/20 07:00 Intake Total 1130 ml Output Total 855 ml Balance 275 ml Height & Weight Height: 5'4.00" Weight: 190lbs. 0oz. 86.473863dy; 30.26 BMI Method:Stated General Appearance: Anxious, Moderate Distress Capillary Refill: Less Than 3 Seconds Gastrointestinal: normal bowel sounds, non tender, soft Results Lab Laboratory Tests 09/19/20 02:15 09/20/20 03:10 Assessment/Plan Assessment/Plan Acute respiratory failure secondary to COVID-19 - 09/04 -Pt does not meet [place]'s criteria for Remdesivir (symptom onset within 10days) -s/p CVP -BiPAP currently at 85% -Vapotherm during the day -Lovenox theraputic dosing -repeat BNP PNA -Wong cultures pending -Currently on Cefepime and Zyvox - D/C Zyvox (MRSA swab is negative) 09/19 -09/20 change Cefepime to Merrem and Eraxis secondary to worsening respiratory failure and leukocytosis Acute on chronic renal failure with hx of renal transplant -Monitor - home anti-rejection meds -IVF are at 30cc/hr Hyperglycemia - SSI -Monitor -Increase Accu chest to Q 4 Hypertension -PRN Labetalol -Restart Coreg DVT/GI ppx -continue lovenox - Protonix BALAJI MCINTOSH DO Sep 20, 2020 04:08
[2020-09-20] MEDS: MEROPENEM 1,000 MG in WATER (STERILE) FOR INJECTION 20 ML IV SCH ×3 (05:07→20:19)
[2020-09-20] MEDS ORDERED: ANIDULAFUNGIN INJECTION 200 MG in NS (IVPB) 250 ML IV ONE (06:00)
--- NOTE | 2020-09-20 06:17 | Diagnostic Imaging Report ---
Portable erect AP chest at 417 hours. INDICATION: Shortness of breath. FINDINGS: The cardiomegaly and the alveolar/interstitial pulmonary infiltrates seen on the prior exam of 09/19/2020 are again evident and not significantly changed. The mediastinum is not widened. The osseous structures are intact. The left-sided PICC line remains in good position. IMPRESSION: Stable chest. There has been no significant change since the prior exam. A follow-up study would be recommended for continued evaluation. Dictated by: Dictated on workstation # [id number]
[2020-09-20] MEDS: RT-ALBUTEROL INHALER HFA (VENTOLIN HFA) 18 GM IH SCH ×5 (06:32→22:02)
[2020-09-20] MEDS: ALPRAZolam 0.5 MG (XANAX) TAB PO PRN ×2 (08:12→20:19)
[2020-09-20] MEDS: [UNRECOGNIZED DRUG - OTHER] PO SCH ×2 (08:13→20:19)
[2020-09-20] MEDS: TACROLIMUS 0.5 MG (PROGRAF) CAP NON-FORMULARY PO SCH ×2 (08:13→18:11)
[2020-09-20] MEDS: PANTOPRAZOLE 40 MG (PROTONIX) VIAL IV SCH (08:13)
[2020-09-20] MEDS: ENOXAPARIN 80 MG/0.8 ML (LOVENOX) SYR SC SCH ×2 (08:13→20:19)
[2020-09-20] MEDS: CARVEDILOL 12.5 MG (COREG) TABLET PO SCH ×2 (08:13→18:00)
[2020-09-20 09:14] LABS: ABG BASE EXCESS 2.4 MMOL/L (-2.5-2.5); ABG OXYGEN SATURATION 91 % (94-100); ABG PCO2 38 MMHG (35-45); ABG PH 7.45 (7.37-7.43); ABG PO2 67 MMHG (79-93); ABG TCO2 27.4 MMOL/L (21.0-31.0)
[2020-09-20 09:16] LABS: ALLENS TEST YES-POS; INSPIRED O2 100%; PATIENT TEMP 36.8; VENTILATOR NO
[2020-09-20] MEDS ORDERED: FUROSEMIDE 40 MG/4 ML INJ (LASIX) IVP NR (09:30)
[2020-09-20] MEDS: DexMEDEtomidine PRE MIX 100 ML IV SCH (09:45)
--- NOTE | 2020-09-20 14:08 | NUR ---
Pt is Spirit[employer] and requested Needle Control [place] when asked. Fr Noel notified.
--- NOTE | 2020-09-20 15:16 | NUR ---
During care rounds, it was noted that pt is NPO x3d. Rama stated giving the pt an Ensure Enlive and that the pt tolerated it. Note that a diet order needs to be placed before giving the pt any food or supplementation. Would recommend initiation of Clear Liquid diet. Will continue to follow and reassess as pt needs, intake, and status change. Lc Berger, MS RD LD
--- NOTE | 2020-09-20 16:23 | NUR ---
Pt anointed by Jia Noel.
[2020-09-21] VITALS (27 sets, daily range): BP systolic 75–143; BP diastolic 48–107
[2020-09-21] MEDS: RT-ALBUTEROL INHALER HFA (VENTOLIN HFA) 18 GM IH SCH ×5 (02:04→23:16)
[2020-09-21 03:40] LABS: BASOPHILS % (AUTO) 0 % (0-10); EOSINOPHILS % (AUTO) 0 % (0-10); HEMATOCRIT 42 % (35-52); HEMOGLOBIN 13.8 g/dL (11.5-16.0); LYMPHOCYTES # (AUTO) 2.3 10^3/uL (1.0-4.0); LYMPHOCYTES % (AUTO) 13 % (12-44); MEAN CORPUSCULAR HEMOGLOBIN 28 pg (25-34); MEAN CORPUSCULAR HGB CONC 33 g/dL (32-36); MEAN CORPUSCULAR VOLUME 85 fL (80-99); MONOCYTES % (AUTO) 6 % (0-12); NEUTROPHILS # (AUTO) 12.9 10^3/uL (1.8-7.8); NEUTROPHILS % (AUTO) 76 % (42-75); PLATELET COUNT 173 10^3/uL (130-400); WHITE BLOOD COUNT 17.1 10^3/uL (4.3-11.0)
[2020-09-21 04:05] LABS: CHLORIDE 103 MMOL/L (98-107); POTASSIUM 4.1 MMOL/L (3.6-5.0); SODIUM 141 MMOL/L (135-145)
[2020-09-21 04:06] LABS: CALCIUM 8.6 MG/DL (8.5-10.1); GLUCOSE 82 MG/DL (70-105)
[2020-09-21 04:08] LABS: CARBON DIOXIDE 25 MMOL/L (21-32)
[2020-09-21 04:10] LABS: CREATININE SERUM 0.87 MG/DL (0.60-1.30); GFR ESTIMATED > 60; PHOSPHORUS 3.4 MG/DL (2.3-4.7)
[2020-09-21 04:11] LABS: BUN/CREATININE RATIO 45
[2020-09-21 04:12] LABS: MAGNESIUM 1.9 MG/DL (1.6-2.4)
[2020-09-21] MEDS: KCL 20 MEQ TAB (K-DUR) PO SCH (04:24)
[2020-09-21] MEDS: MAGNESIUM 1 GM/100 ML IVPB 100 ML IV SCH (04:24)
[2020-09-21] MEDS: POTASSIUM CL 10MEQ/50ML IVPB 50 ML IV SCH (04:24)
[2020-09-21] MEDS: inSUlin ASPART (NovoLOG) 1 UNIT/0.01 ML (CHARGE PER UNIT) SC SCH ×4 (04:25→20:21)
[2020-09-21] MEDS: MEROPENEM 1,000 MG in WATER (STERILE) FOR INJECTION 20 ML IV SCH ×3 (05:19→20:12)
--- NOTE | 2020-09-21 06:05 | Pulmonary Progress Note ---
Subjective Time Seen by a Provider: 06:00 Subjective/Events-last exam Pt is still requiring a lot of pressure with BiPAP. Sepsis Event Evaluation Height, Weight, BMI Height: 5'4.00" Weight: 190lbs. 0oz. 86.959862kk; 30.26 BMI Method:Stated Exam Exam Vital Signs Date Time Temp Pulse Resp B/P (MAP) Pulse Ox O2 Delivery O2 Flow Rate FiO2 09/21/20 05:00 36.0 NIV Bilevel 100.00 09/21/20 04:00 86 38 120/82 (95) 91 NIV Bilevel 100.00 09/21/20 03:00 81 35 114/84 (94) 89 NIV Bilevel 100.00 09/21/20 02:04 80 34 91 100.00 09/21/20 02:00 81 33 107/78 (88) 89 NIV Bilevel 100.00 09/21/20 01:00 89 09/21/20 01:00 89 25 118/87 (97) 91 NIV Bilevel 100.00 09/21/20 00:00 84 26 103/72 (82) 91 NIV Bilevel 100.00 09/20/20 23:25 36.1 NIV Bilevel 100.00 09/20/20 23:00 82 34 92/70 (77) 94 NIV Bilevel 100.00 09/20/20 22:05 NIV Bilevel 100.00 09/20/20 22:02 91 Vapotherm 40.00 100 09/20/20 22:00 86 33 114/80 (91) 88 Vapotherm 40.00 100.00 09/20/20 21:00 80 33 106/85 (92) 93 Vapotherm 40.00 100.00 09/20/20 20:15 Vapotherm 40.00 100.00 09/20/20 20:00 81 31 115/90 (98) 91 NIV Bilevel 100.00 09/20/20 20:00 36.0 NIV Bilevel 100.00 09/20/20 20:00 92 NIV Bilevel 100 09/20/20 19:00 81 33 113/87 (96) 92 NIV Bilevel 100.00 09/20/20 19:00 81 09/20/20 18:41 79 31 91 100.00 09/20/20 18:00 79 32 107/72 (84) 91 NIV Bilevel 100.00 09/20/20 17:00 85 17 115/77 (90) 92 NIV Bilevel 100.00 09/20/20 16:00 80 32 111/83 (92) 94 NIV Bilevel 100.00 09/20/20 15:19 95 Vapotherm 40.00 100 09/20/20 15:00 82 35 100/69 (79) 93 NIV Bilevel 100.00 09/20/20 14:00 82 25 107/70 (82) 94 NIV Bilevel 100.00 09/20/20 13:00 79 33 112/76 (88) 96 NIV Bilevel 100.00 09/20/20 12:26 35.9 09/20/20 12:14 89 09/20/20 12:00 89 33 104/77 (86) 96 NIV Bilevel 100.00 09/20/20 11:00 98 33 105/73 (84) 93 NIV Bilevel 100.00 09/20/20 10:33 98 31 94 100.00 09/20/20 10:30 NIV Bilevel 100.00 09/20/20 10:00 99 30 120/72 (88) 93 Vapotherm 40.00 100.00 09/20/20 09:45 106 130/81 09/20/20 09:00 97 32 130/81 (97) 92 Vapotherm 40.00 100.00 09/20/20 08:00 92 Vapotherm 40.00 90 09/20/20 08:00 83 30 139/82 (101) 93 Vapotherm 40.00 100.00 09/20/20 07:30 99 09/20/20 07:00 87 27 131/77 (95) 93 Vapotherm 40.00 100.00 09/20/20 06:33 92 Vapotherm 40.00 100 I & O 09/21/20 07:00 Intake Total 280 ml Output Total 795 ml Balance -515 ml Height & Weight Height: 5'4.00" Weight: 190lbs. 0oz. 86.465028ep; 30.26 BMI Method:Stated General Appearance: Anxious, Moderate Distress Capillary Refill: Less Than 3 Seconds Gastrointestinal: normal bowel sounds, non tender, soft Results Lab Laboratory Tests 09/20/20 03:10 09/21/20 03:28 Assessment/Plan Assessment/Plan Acute respiratory failure secondary to COVID-19 - 09/04\\ -Currently requiring BiPAP with 100% oxygen -CXR reviewed and shows more left parahilar infiltration -BNP is normal -Pt is on therapeutic dose lovenox -Discussed with daughter regarding all options and we will proceed with intubation secondary to worsening hypoxia and biPAP dependance. -Will get CT of chest after intubation. -Pt does not meet [place]'s criteria for Remdesivir (symptom onset within 10days) -s/p CVP -BiPAP currently at 85% -Vapotherm during the day -Lovenox theraputic dosing -repeat BNP PNA --Worsening leukocytosis -09/20 Merrem zyvox and Eraxis -MRSA swab is negative -Wong cultures pending -Currently on Cefepime and Zyvox - D/C Zyvox (MRSA swab is negative) 09/19 -09/20 change Cefepime to Merrem and Eraxis secondary to worsening respiratory failure and leukocytosis Acute on chronic renal failure with hx of renal transplant -Monitor - home anti-rejection meds -IVF are at 30cc/hr Hyperglycemia - SSI -Monitor -Increase Accu chest to Q 4 Hypertension -PRN Labetalol -Restart Coreg DVT/GI ppx -continue lovenox - Protonix BALAJI MCINTOSH DO Sep 21, 2020 06:05
[2020-09-21] MEDS ORDERED: PROPOFOL DRIP (ICU) 100 ML IV ONE (06:16)
[2020-09-21] MEDS: LACTATED RINGERS 1,000 ML IV SCH (06:35)
[2020-09-21] MEDS: PROPOFOL DRIP (ICU) 100 ML IV SCH ×3 (06:51→18:06)
--- NOTE | 2020-09-21 07:35 | NUR ---
Intubation note: 0630 Dr Rangel spoke to daughter Shayla, daughter agreed to intubation. 0640 Patient spoke to daughter and by telephone with assist of this RN 0653 2mg Versed administered. 0656 5mg Propofol administered. 0658 3mg Versed administered. 0658 3mg Propofol administered. 0659 first intubation attempt made. Stopped and bagged patient. 0700 intubation successful with color change and condensation in the tube, auscultation done with + breath sounds bilaterally. 7.5 ETT, TV 400, PEEP 10, RR 24, FIO2 100% Bedside report with Luzma RN's
[2020-09-21] MEDS ORDERED: fentaNYL INJECTION 100 MCG/2 ML AMP IV ONE (08:06)
[2020-09-21] MEDS ORDERED: MIDAZOLAM 5 MG/5 ML (VERSED) VIAL INJ ONE (08:06)
--- NOTE | 2020-09-21 08:07 | Physical Therapy Progress Note ---
Therapy Progress Note PT evaluation order received. Patient is currently intubated and sedated. Will monitor and start when appropriate. AMADA BOLANOS PT Sep 21, 2020 08:07
--- NOTE | 2020-09-21 08:13 | Occ Therapy Progress Note ---
Therapy Progress Note Will continue to monitor pt. for changing medically status. Medical team considering intubation due to Bipap dependence. 0813 TEVIN ROSA OT Sep 21, 2020 08:13
--- NOTE | 2020-09-21 08:30 | Diagnostic Imaging Report ---
INDICATION: Respiratory distress. COMPARISON: 09/20/2020. FINDINGS: ET tube, NG tube and left PICC line are all in good position. The lungs show increasing bilateral consolidated alveolar infiltrates involving all 5 lobes. This is slightly more severe on the right. Heart is mildly enlarged. No pneumothorax. There is small left pleural effusion has developed. IMPRESSION: 1. Satisfactory tube and line placement. 2. Increasing bilateral 5 lobe alveolar infiltrates with small left pleural effusion. Dictated by: Dictated on workstation # [id number]
[2020-09-21] MEDS: PANTOPRAZOLE 40 MG (PROTONIX) VIAL IV SCH (09:04)
[2020-09-21] MEDS: ENOXAPARIN 80 MG/0.8 ML (LOVENOX) SYR SC SCH ×2 (09:04→20:11)
[2020-09-21] MEDS: LINEZOLID IVPB 300 ML IV SCH ×2 (09:04→20:12)
[2020-09-21] MEDS: ANIDULAFUNGIN INJECTION 100 MG in NS (IVPB) 100 ML IV SCH (09:05)
[2020-09-21] MEDS: TACROLIMUS 0.5 MG (PROGRAF) CAP NON-FORMULARY PO SCH (09:05)
[2020-09-21] MEDS: CARVEDILOL 12.5 MG (COREG) TABLET PO SCH ×2 (09:07→18:52)
--- NOTE | 2020-09-21 14:46 | NUR ---
Received dietary consult for vent status. Note pt is currently intubated and sedated. If pt is to remain intubated for more than 3d, would recommend initiation of Pulmocare 1.5 kcal at rate of 15ml/hr with 25ml water flushes q4h for hydration and to prevent the tube from clogging. Will continue to follow and reassess as pt needs, intake, and status change. Lc Berger MS RD LD [phone] (cell)
[2020-09-21] MEDS: DexMEDEtomidine PRE MIX 100 ML IV SCH ×2 (16:05→21:11)
[2020-09-21] MEDS: TACROLIMUS 0.5 MG (PROGRAF) CAP NON-FORMULARY OG SCH (17:58)
[2020-09-21 18:56] LABS: BILIRUBIN,URINE NEGATIVE (NEGATIVE); CLARITY,URINE CLEAR; COLOR,URINE YELLOW; GLUCOSE, URINE (UA) NEGATIVE (NEGATIVE); KETONES,URINE NEGATIVE (NEGATIVE); LEUKOCYTE ESTERASE ,URINE NEGATIVE (NEGATIVE); NITRITE,URINE NEGATIVE (NEGATIVE); PROTEIN,URINE NEGATIVE (NEGATIVE)
[2020-09-21 19:02] LABS: BACTERIA,URINE NEGATIVE /HPF; RBC,URINE RARE /HPF
[2020-09-22] VITALS (28 sets, daily range): BP systolic 84–131; BP diastolic 65–91
[2020-09-22] MEDS: PROPOFOL DRIP (ICU) 100 ML IV SCH ×4 (00:45→21:35)
[2020-09-22] MEDS: RT-ALBUTEROL INHALER HFA (VENTOLIN HFA) 18 GM IH SCH ×4 (02:50→19:43)
--- NOTE | 2020-09-22 02:56 | Pulmonary Progress Note ---
Subjective Time Seen by a Provider: 02:52 Subjective/Events-last exam Pt is sedated on vent. Sepsis Event Evaluation Height, Weight, BMI Height: 5'4.00" Weight: 190lbs. 0oz. 86.495964qj; 30.26 BMI Method:Stated Exam Exam Vital Signs Date Time Temp Pulse Resp B/P (MAP) Pulse Ox O2 Delivery O2 Flow Rate FiO2 09/22/20 02:00 35.8 Mechanical Ventilator 80.00 09/22/20 01:00 70 09/22/20 00:45 68 106/81 09/21/20 23:35 35.6 Mechanical Ventilator 80.00 09/21/20 23:16 71 24 94 85 09/21/20 23:00 70 23 101/77 (85) 95 Mechanical Ventilator 85.00 09/21/20 22:00 71 24 118/80 (93) 94 Mechanical Ventilator 85.00 09/21/20 21:11 69 133/88 Mechanical Ventilator 09/21/20 21:00 70 23 133/88 (103) 95 Mechanical Ventilator 85.00 09/21/20 20:30 93 Mechanical Ventilator 85 09/21/20 20:00 70 23 125/82 (96) 94 Mechanical Ventilator 85.00 09/21/20 20:00 35.3 Mechanical Ventilator 85.00 09/21/20 19:42 71 24 97 100 09/21/20 19:00 70 09/21/20 19:00 70 23 133/88 (103) 96 Mechanical Ventilator 100.00 09/21/20 18:06 71 144/91 09/21/20 18:00 71 23 143/90 (107) 96 Mechanical Ventilator 100.00 09/21/20 17:00 73 24 140/90 (107) 96 Mechanical Ventilator 100.00 09/21/20 16:05 73 09/21/20 16:00 71 24 111/78 (89) 95 Mechanical Ventilator 100.00 09/21/20 15:29 35.0 09/21/20 15:00 72 24 114/83 (93) 94 Mechanical Ventilator 100.00 09/21/20 14:40 68 24 95 100 09/21/20 14:00 67 18 92/68 (76) 96 Mechanical Ventilator 100.00 09/21/20 13:00 75 24 105/72 (83) 95 Mechanical Ventilator 100.00 09/21/20 12:26 76 11/18/20 12:00 76 24 100/62 (75) 94 Mechanical Ventilator 100.00 09/21/20 11:42 75 103/67 09/21/20 11:00 79 24 100/65 (77) 94 Mechanical Ventilator 100.00 09/21/20 10:22 80 24 96 100 09/21/20 10:00 75 23 105/69 (81) 98 Mechanical Ventilator 100.00 09/21/20 09:00 80 24 102/69 (80) 94 Mechanical Ventilator 100.00 09/21/20 08:00 92 Mechanical Ventilator 100 09/21/20 08:00 70 24 75/48 (57) 94 Mechanical Ventilator 100.00 09/21/20 07:42 68 09/21/20 07:00 78 35 109/71 (84) 81 Mechanical Ventilator 100.00 09/21/20 06:51 76 93/59 09/21/20 05:00 36.0 NIV Bilevel 100.00 09/21/20 04:00 86 38 120/82 (95) 91 NIV Bilevel 100.00 09/21/20 03:00 81 35 114/84 (94) 89 NIV Bilevel 100.00 I & O 09/22/20 07:00 Intake Total 1185 ml Output Total 1350 ml Balance -165 ml Height & Weight Height: 5'4.00" Weight: 190lbs. 0oz. 86.200939zj; 30.26 BMI Method:Stated General Appearance: Anxious, Moderate Distress, Other (sedated on vent) HEENT: PERRL/EOMI, Pharynx Normal Neck: Full Range of Motion, Non Tender, Supple Respiratory: Chest Non Tender, No Accessory Muscle Use, No Respiratory Distress, Decreased Breath Sounds Cardiovascular: Regular Rate, Rhythm, No Edema Capillary Refill: Less Than 3 Seconds Gastrointestinal: normal bowel sounds, non tender, soft Extremity: Normal Capillary Refill, No Pedal Edema Skin: Normal Color, Warm/Dry Lymphatic: No Adenopathy Results Lab Laboratory Tests 09/20/20 03:10 09/21/20 03:28 Assessment/Plan Assessment/Plan Acute respiratory failure secondary to COVID-19 - -09/21- pt was intubated secondary worsening respiratory failure. -BNP is normal -Pt is on therapeutic dose lovenox -Check CT of chest without contrast secondary to persistent hypoxia. -Pt does not meet [place]'s criteria for Remdesivir (symptom onset within 10days) -s/p CVP -Lovenox theraputic dosing -repeat BNP PNA -Worsening leukocytosis -09/20 Merrem, zyvox and Eraxis -MRSA swab is negative -Wong cultures pending Acute on chronic renal failure with hx of renal transplant -Monitor - home anti-rejection meds -IVF are at 30cc/hr Hyperglycemia - SSI -Monitor -Increase Accu chest to Q 4 Hypertension -Restart Coreg DVT/GI ppx -continue lovenox - Protonix BALAJI MCINTOSH DO Sep 22, 2020 02:56
[2020-09-22 03:04] LABS: BASOPHILS % (AUTO) 0 % (0-10); EOSINOPHILS % (AUTO) 0 % (0-10); HEMATOCRIT 40 % (35-52); HEMOGLOBIN 13.1 g/dL (11.5-16.0); LYMPHOCYTES % (AUTO) 8 % (12-44); MEAN CORPUSCULAR HEMOGLOBIN 28 pg (25-34); MEAN CORPUSCULAR HGB CONC 33 g/dL (32-36); MEAN CORPUSCULAR VOLUME 85 fL (80-99); MEAN PLATELET VOLUME 11.6 fL (9.0-12.2); MONOCYTES # (AUTO) 0.7 10^3/uL (0.0-1.0); MONOCYTES % (AUTO) 6 % (0-12); NEUTROPHILS # (AUTO) 10.8 10^3/uL (1.8-7.8); NEUTROPHILS % (AUTO) 81 % (42-75); PLATELET COUNT 136 10^3/uL (130-400); WHITE BLOOD COUNT 13.4 10^3/uL (4.3-11.0)
[2020-09-22 03:14] LABS: ABG BASE EXCESS 1.8 MMOL/L (-2.5-2.5); ABG OXYGEN SATURATION 95 % (94-100); ABG PCO2 35 MMHG (35-45); ABG PH 7.47 (7.37-7.43); ABG PO2 73 MMHG (79-93); ABG TCO2 26.5 MMOL/L (21.0-31.0)
[2020-09-22 03:27] LABS: ALLENS TEST POS; INSPIRED O2 80%; PATIENT TEMP 35.8; VENTILATOR YES
[2020-09-22 03:28] LABS: BUN/CREATININE RATIO 39; CALCIUM 8.4 MG/DL (8.5-10.1); CARBON DIOXIDE 23 MMOL/L (21-32); CHLORIDE 103 MMOL/L (98-107); CREATININE SERUM 0.82 MG/DL (0.60-1.30); GFR ESTIMATED > 60; GLUCOSE 162 MG/DL (70-105); MAGNESIUM 1.8 MG/DL (1.6-2.4); POTASSIUM 4.4 MMOL/L (3.6-5.0); SODIUM 139 MMOL/L (135-145); TRIGLYCERIDES 244 MG/DL (<150)
[2020-09-22] MEDS: DexMEDEtomidine PRE MIX 100 ML IV SCH ×2 (03:30→09:35)
[2020-09-22] MEDS: POTASSIUM CL 10MEQ/50ML IVPB 50 ML IV SCH (03:50)
[2020-09-22] MEDS: KCL 20 MEQ TAB (K-DUR) PO SCH (03:51)
[2020-09-22] MEDS: MAGNESIUM 1 GM/100 ML IVPB 100 ML IV SCH (03:51)
[2020-09-22] MEDS: inSUlin ASPART (NovoLOG) 1 UNIT/0.01 ML (CHARGE PER UNIT) SC SCH ×4 (04:55→22:08)
[2020-09-22] MEDS: MEROPENEM 1,000 MG in WATER (STERILE) FOR INJECTION 20 ML IV SCH ×3 (05:07→21:18)
[2020-09-22] MEDS: LACTATED RINGERS 1,000 ML IV SCH (05:08)
[2020-09-22] MEDS: ENOXAPARIN 80 MG/0.8 ML (LOVENOX) SYR SC SCH ×2 (07:42→21:25)
[2020-09-22] MEDS: TACROLIMUS 0.5 MG (PROGRAF) CAP NON-FORMULARY OG SCH ×2 (07:43→18:26)
[2020-09-22] MEDS: PANTOPRAZOLE 40 MG (PROTONIX) VIAL IV SCH (07:43)
[2020-09-22] MEDS: CARVEDILOL 12.5 MG (COREG) TABLET PO SCH ×2 (07:43→18:02)
[2020-09-22] MEDS: LINEZOLID IVPB 300 ML IV SCH ×2 (07:43→22:08)
[2020-09-22] MEDS: ANIDULAFUNGIN INJECTION 100 MG in NS (IVPB) 100 ML IV SCH (07:43)
--- NOTE | 2020-09-22 08:13 | Diagnostic Imaging Report ---
EXAMINATION: Chest 1 view HISTORY: Tube placement COMPARISON: 09/21/2020 FINDINGS: Endotracheal tube tip terminates 5 cm above the fern. Left upper extremity peripherally inserted central venous catheter tip terminates in the superior vena cava. There is a small amount of pneumomediastinum, similar to prior study. Subcutaneous gas is seen in the neck. Moderate interstitial airspace opacities are seen throughout the lungs and appear unchanged. No pleural effusion or pneumothorax. IMPRESSION: 1. Stable moderate interstitial and airspace opacities throughout both lungs most consistent with pneumonia. 2. Stable pneumomediastinum and subcutaneous gas. Dictated by: Dictated on workstation # [id number]
--- NOTE | 2020-09-22 08:24 | Occ Therapy Progress Note ---
Therapy Progress Note OT continues to monitor pt. Pt. continues sedated and on mechanical ventilation. Please send new OT orders when medically ready. 0824 TEVIN ROSA OT Sep 22, 2020 08:24
[2020-09-22] MEDS ORDERED: MYCOPHENOLATE OG SCH ×3 (09:00)
--- NOTE | 2020-09-22 11:08 | Physical Therapy Progress Note ---
Therapy Progress Note PROM B U/LE in available ranges. ALEXANDRA GOETZ PT Sep 22, 2020 11:08
[2020-09-22] MEDS: MYCOPHENOLATE OG SCH ×6 (12:29→21:25)
--- NOTE | 2020-09-22 14:55 | NUR ---
Patient transported from ICU to CT Suite. Patient monitored during transport and exam. Vital signs stable, patient sedated. 1510: Upon finishing CT Chest, this RN entered scan room and noted patient hypotensive, HR in 40s and quickly declining. Pulse check confirmed no pulse palpable. Claude coyne called, CPR initiated immediately. 1514: Dr. Layton at bedside, ordered Epinephrine 1mg IV. Epinephrine 1mg IV administered. 1516: ROSC and patient transported back to ICU.
--- NOTE | 2020-09-22 15:21 | NUR ---
During care rounds, it was noted that pt will likely start enteral nutrition on 09/23. Would recommend Pulmocare at rate of 15ml/hr with 25ml water flushes q4h for hydration and to prevent the tube from clogging. Will continue to follow and reassess as pt needs, intake, and status change. Lc Berger, MS RD LD [phone] (cell)
--- NOTE | 2020-09-22 15:22 | NUR ---
TIMELINE NOTE: 1522: PATIENT ARRIVED BACK FROM CT SCAN WITH MULTIPLE STAFF MEMBERS POST CODE IN CT SCAN. PER DORA GUADALUPE FROM CT, PATIENT WENT BRADYCARDIC DOWN TO 40'S AND DID NOT HAVE A PULSE UPON PALPATION. CODE WAS CALLED AND TWO ROUNDS OF CPR AND ONE EPI GIVEN. ROSC ACHIEVED AND PATIENT TRANSPORTED BACK TO ICU. UPON ARRIVAL TO ICU, PT HR 130'S BP 130/70'S, OXYGEN SATURATION 79-80% ON 100% FI02. DR RUEDA AT BEDSIDE GIVING ORDERS. PT HAS LARGE PNEUMO, ASHLEY ZIEGLER WILL COME PLACE CHEST TUBE. E-ICU CAMERA IN AT THIS TIME. 1530: LABS DRAWN AND SENT TO LAB, DR STRINGER NOTIFIED. ZOLL PATCHES PLACED ON PATIENT. HAVING 10-15 BEAT RUNS OF VTACH. VERBAL ORDER FROM DR RUEDA TO START AMIODARONE BOLUS AND GTT. 1535: ASHLEY ZIEGLER AT BEDSIDE PREPPING FOR CHEST TUBE. 1537:AMIODARONE BOLUS INITIATED FOLLOWED BY CONTINUOUS INFUSION PER ORDER. 1539: VERBAL ORDER FROM ASHLEY ZIEGLER TO ADMINISTER 5MG VERSED PRIOR TO CHEST TUBE PLACEMENT. THIS ADMINISTERED, SEE JAN. 1545: 28FR CHEST TUBE INSERTED WITH STERILE TECHNIQUE BY ASHLEY ZIEGLER, ROOF SERVICE TECHNICIAN. 1605: 75MCG FENTANYL ADMINISTERED AFTER VERBAL ORDER FROM ASHLEY ZIEGLER. PT OXYGEN SATURATIONS REMAIN 79-80% ON 100% FI02. NO NEW ORDERS AT THIS TIME. 1637:E-ICU EVALUATING PATIENT. NOTIFIED OF LOW BP. LEVOPHED INITIATED PER PROTOCOL.
[2020-09-22] MEDS ORDERED: AMIODARONE INJECTION 150 MG in D5W 100 ML IVPB 100 ML IV NR (15:30)
[2020-09-22] MEDS ORDERED: MIDAZOLAM 5 MG/5 ML (VERSED) VIAL ONE (15:34)
--- NOTE | 2020-09-22 15:44 | Diagnostic Imaging Report ---
PROCEDURE: CT chest without contrast. TECHNIQUE: Multiple contiguous axial images were obtained through the chest without the use of intravenous contrast. Auto Exposure Controls were utilized during the CT exam to meet ALARA standards for radiation dose reduction. INDICATION: Respiratory failure and worsening hypoxia. FINDINGS: Extensive subcutaneous emphysema throughout the chest wall is noted. There is emphysema in the soft tissues of the lower neck. Endotracheal tube has its tip above the fern. There is a pneumomediastinum. A moderate-sized left-sided pneumothorax is also noted. There is a smaller right pneumothorax. The heart does appear to be shifted to the right. This is suggestive of a tension component to the left-sided pneumothorax. No pericardial or pleural fluid is detected. There are groundglass infiltrates throughout bilateral upper lobes with more patchy airspace infiltrates within bilateral lower lobes. There is a large basilar component to the pneumothorax on the left side. Several nodules in the right lower lobe are noted, largest subpleural and posterior measuring 17 mm. The upper abdomen is unremarkable apart from cortical thinning bilaterally. NG tube passes into the stomach. Left upper extremity PICC line has tip within the upper SVC. IMPRESSION: 1. Pneumomediastinum and bilateral pneumothoraces. Pneumothorax on the left is the largest. There does appear to be shift of mediastinal structures to the right, raising question of tension component to the left-sided pneumothorax. There is also extensive subcutaneous emphysema. 2. Bilateral groundglass pulmonary infiltrates as well as patchy airspace pulmonary infiltrates in bilateral lower lobes. 3. Indeterminate noncalcified pulmonary nodules in right lower lobe. There are bilateral renal atrophy. Results were discussed with Dr. Olamide Light prior to this dictation. Plan is for patient to undergo a left-sided chest tube placement. Dictated by: Dictated on workstation # [id number]
[2020-09-22] MEDS ORDERED: MIDAZOLAM 5 MG/5 ML (VERSED) VIAL IVP ONE (15:45)
[2020-09-22 15:52] LABS: ALBUMIN 2.8 GM/DL (3.2-4.5); CHLORIDE 103 MMOL/L (98-107); POTASSIUM 5.3 MMOL/L (3.6-5.0); SODIUM 137 MMOL/L (135-145)
[2020-09-22 15:53] LABS: CALCIUM 7.9 MG/DL (8.5-10.1)
[2020-09-22 15:54] LABS: GLUCOSE 392 MG/DL (70-105); TOTAL PROTEIN 5.6 GM/DL (6.4-8.2)
[2020-09-22] MEDS: AMIODARONE INJECTION 450 MG in D5W IV SOLUTION (EXCEL) 250 ML IV SCH ×2 (15:54→23:31)
[2020-09-22 15:55] LABS: CARBON DIOXIDE 22 MMOL/L (21-32)
[2020-09-22 15:56] LABS: BILIRUBIN,TOTAL 0.8 MG/DL (0.1-1.0)
[2020-09-22 15:57] LABS: PHOSPHORUS 5.1 MG/DL (2.3-4.7)
[2020-09-22 15:58] LABS: ALKALINE PHOSPHATASE 54 U/L (40-136); CREATININE SERUM 1.13 MG/DL (0.60-1.30); GFR ESTIMATED 47
[2020-09-22 15:59] LABS: BUN/CREATININE RATIO 27
[2020-09-22 16:01] LABS: ALANINE AMINOTRANSFERASE 50 U/L (0-55); BASOPHILS % (AUTO) 0 % (0-10); EOSINOPHILS % (AUTO) 0 % (0-10); HEMATOCRIT 43 % (35-52); HEMOGLOBIN 13.7 g/dL (11.5-16.0); LYMPHOCYTES # (AUTO) 7.6 10^3/uL (1.0-4.0); LYMPHOCYTES % (AUTO) 18 % (12-44); MEAN CORPUSCULAR HEMOGLOBIN 28 pg (25-34); MEAN CORPUSCULAR HGB CONC 32 g/dL (32-36); MEAN CORPUSCULAR VOLUME 88 fL (80-99); MEAN PLATELET VOLUME 11.7 fL (9.0-12.2); MONOCYTES # (AUTO) 1.2 10^3/uL (0.0-1.0); MONOCYTES % (AUTO) 3 % (0-12); NEUTROPHILS # (AUTO) 27.7 10^3/uL (1.8-7.8); NEUTROPHILS % (AUTO) 67 % (42-75); PLATELET COUNT 215 10^3/uL (130-400)
[2020-09-22 16:05] LABS: WHITE BLOOD COUNT 41.4 10^3/uL (4.3-11.0)
[2020-09-22] MEDS ORDERED: fentaNYL INJECTION 100 MCG/2 ML AMP IVP NR (16:15)
--- NOTE | 2020-09-22 16:15 | Diagnostic Imaging Report ---
INDICATION: Cardiopulmonary arrest. EXAMINATION: Portable chest at 03:51 p.m. FINDINGS: ET tube projects over the trachea. NG tube appears to enter the stomach. There is left thoracostomy tube. Left upper extremity PICC line tip projects over the SVC. There are diffuse alveolar infiltrates in the lungs. There is a small left pneumothorax. IMPRESSION: Diffuse predominantly peripheral pulmonary infiltrates in both lungs. Tiny left pneumothorax. Dictated by: Dictated on workstation # [id number]
--- NOTE | 2020-09-22 16:26 | Progress Note ---
Progress Note Assessment/Plan Date Seen by Provider: Sep 22, 2020 Time Seen by Provider: 15:00 Events since last exam Pt had cardiac arrest in CT after completion of CT. Pt had left pneumothorax vs tension pneumothorax and is on positive pressure ventilation. I was available and myself and Dr Sonia hager pt needed chest tube. The left midaxillary line 5th ICS was anesthetized with 5ml 1% lidocaine. An anterior posterior 1.5cm incision made with 15 blade scalpel. Curved hemostats used to dissect tract down to ribs, hemostats advanced thru pleura over the palpated rib and then opened. Gush of air noted. 28 polish chest tube then inserted thru this opening in the pleura and advanced. Placement confirmed by running my finger along the chest tube and feeling the tube go thru the pleura and between the ribs. No excessive bleeding. Skin sutured with 0 Prolene, wrapped around the chest tube snug, tied. Then incision covered with petroleum gauze and dry kathy. The Chest tube attached to the atrium device with suction. Fog seen within chest tube. Pt given additional 75mcg fentanyl +5mg Versed during procedure. Assessment/Plan as above Vitals Last set of Vitals Signs Vital Signs Date Time Temp Pulse Resp B/P (MAP) Pulse Ox O2 Delivery O2 Flow Rate FiO2 09/22/20 13:57 67 111/73 09/22/20 11:07 36.4 09/22/20 11:00 24 93 Mechanical Ventilator 75.00 09/22/20 10:20 70 I&O I&O Intake and Output 09/22/20 00:00 Intake Total 2130 ml Output Total 1295 ml Balance 835 ml Intake Oral 25 ml IV Total 2070 ml Tube Feeding 35 ml Output Urine Total 1295 ml Labs Laboratory Tests 09/21/20 17:30: Glucometer 236H 09/21/20 18:40: Urine Color YELLOW, Urine Clarity CLEAR, Urine pH 6.0, Urine Specific [place] 1.025H, Urine Protein NEGATIVE, Urine Glucose (UA) NEGATIVE, Urine Ketones NEGATIVE, Urine Nitrite NEGATIVE, Urine Bilirubin NEGATIVE, Urine Urobilinogen 0.2, Urine Leukocyte Esterase NEGATIVE, Urine RBC (Auto) NEGATIVE, Urine RBC RARE, Urine WBC NONE, Urine Squamous Epithelial Cells NONE, Urine Crystals NONE, Urine Bacteria NEGATIVE, Urine Casts NONE, Urine Mucus NEGATIVE, Urine Culture Indicated NO 09/21/20 20:18: Glucometer 243H 09/22/20 02:25: White Blood Count 13.4H, Red Blood Count 4.67, Hemoglobin 13.1, Hematocrit 40, Mean Corpuscular Volume 85, Mean Corpuscular Hemoglobin 28, Mean Corpuscular Hemoglobin Concent 33, Red Cell Distribution Width 13.3, Platelet Count 136, Mean Platelet Volume 11.6, Immature Granulocyte % (Auto) 6, Neutrophils (%) (Auto) 81H, Lymphocytes (%) (Auto) 8L, Monocytes (%) (Auto) 6, Eosinophils (%) (Auto) 0, Basophils (%) (Auto) 0, Neutrophils # (Auto) 10.8H, Lymphocytes # (Auto) 1.0, Monocytes # (Auto) 0.7, Eosinophils # (Auto) 0.0, Basophils # (Auto) 0.0, Immature Granulocyte # (Auto) 0.8H, Sodium Level 139, Potassium Level 4.4, Chloride Level 103, Carbon Dioxide Level 23, Anion Gap 13, Blood Urea Nitrogen 32H, Creatinine 0.82, Estimat Glomerular Filtration Rate > 60, BUN/Creatinine Ratio 39, Glucose Level 162H, Calcium Level 8.4L, Phosphorus Level 4.0, Magnesium Level 1.8, Triglycerides Level 244H 09/22/20 02:35: Blood Gas Puncture Site [facility] RAD, Blood Gas Patient Temperature 35.8, Arterial Blood pH 7.47H, Arterial Blood Partial Pressure CO2 35, Arterial Blood Partial Pressure O2 73L, Arterial Blood HCO3 25, Arterial Blood Total CO2 26.5, Arterial Blood Oxygen Saturation 95, Arterial Blood Base Excess 1.8, Venkata Test POS, Blood Gas Ventilator Setting YES, Blood Gas Inspired Oxygen 80% 09/22/20 11:07: Glucometer 142H 09/22/20 15:30: White Blood Count 41.4*H, Red Blood Count 4.86, Hemoglobin 13.7, Hematocrit 43, Mean Corpuscular Volume 88, Mean Corpuscular Hemoglobin 28, Mean Corpuscular Hemoglobin Concent 32, Red Cell Distribution Width 13.5, Platelet Count 215, Mean Platelet Volume 11.7, Immature Granulocyte % (Auto) 12, Neutrophils (%) (Auto) 67, Lymphocytes (%) (Auto) 18, Monocytes (%) (Auto) 3, Eosinophils (%) (Auto) 0, Basophils (%) (Auto) 0, Neutrophils # (Auto) 27.7H, Lymphocytes # (Auto) 7.6H, Monocytes # (Auto) 1.2H, Eosinophils # (Auto) 0.0, Basophils # (Auto) 0.0, Immature Granulocyte # (Auto) 4.9H, Sodium Level 137, Potassium Level 5.3H, Chloride Level 103, Carbon Dioxide Level 22, Anion Gap 12, Blood Urea Nitrogen 30H, Creatinine 1.13, Estimat Glomerular Filtration Rate 47, BUN/Creatinine Ratio 27, Glucose Level 392H, Calcium Level 7.9L, Corrected Calcium 8.9, Phosphorus Level 5.1H, Magnesium Level 2.0, Total Bilirubin 0.8, Aspartate Amino Transf (AST/SGOT) 45H, Alanine Aminotransferase (ALT/SGPT) 50, Alkaline Phosphatase 54, Troponin I < 0.028, Total Protein 5.6L, Albumin 2.8L Microbiology 09/16/20 MRSA Screen - Final, Complete MRSA not isolated 09/14/20 Blood Culture - Final, Complete No growth Clinical Quality Measures DVT/VTE Risk/Contraindication: Risk Factor Score Per Nursin RFS Level Per Nursing on Admit: 4+=Very High ASHLEY ZIEGLER [employer]ENCE INSTALLER Sep 22, 2020 16:26
[2020-09-22] MEDS ORDERED: NOREPINEPHRINE 4 MG/250 ML 250 ML IV ONE (16:27)
[2020-09-22] MEDS: NOREPINEPHRINE 4 MG/250 ML 250 ML IV SCH ×2 (16:39→23:32)
[2020-09-22 16:51] LABS: BAND NEUTROPHILS 3 %; BASOPHILS % (MANUAL) 0 %; EOSINOPHILS % (MANUAL) 0 %; LYMPHOCYTES % (MANUAL) 17 %; METAMYELOCYTES % 3 %; MONOCYTES % (MANUAL) 1 %; NEUTROPHILS % (MANUAL) 76 %; RBC MORPH NORMAL
[2020-09-22 16:52] LABS: ABG BASE EXCESS -0.1 MMOL/L (-2.5-2.5); ABG OXYGEN SATURATION 62 % (94-100); ABG PCO2 39 MMHG (35-45); ABG PO2 41 MMHG (79-93); ABG TCO2 25.9 MMOL/L (21.0-31.0)
[2020-09-22 16:54] LABS: INSPIRED O2 100%; PATIENT TEMP 94.7; VENTILATOR YES
[2020-09-22 17:13] LABS: SMUDGE CELLS MOD
--- NOTE | 2020-09-22 17:52 | Code Blue Response-Hospitalist ---
General Date Seen/Responded 09/22/20 Exam Limitations: clinical condition History of Present Illness Time seen by provider: 15:00 Initial Comments Responded to ALAN SIM called overhead in radiology. Patient known to be COVID+ so all appropriate PPE worn. Patient had just had a CT of her chest and then began to antonio down, pulse was checked and was absent so CPR was started. She reportedly und erwent 6 minutes of CPR per ACLS protocol and received epinephrine for PEA. ROSC was obtained and she was immediately brought back to the ICU. She had a wide complex rhythm on telemetry and amiodarone bolus and gtt was started. Dr Mendoza called me and informed me of a large left sided pneumothorax and recommendation for chest tube. Fortunately Venkata Matta who had attended the ALAN SIM in the ER was still available for immediate placement. eICU was called and obtained regarding events. I also called and updated Dr Dickerson. Her is admitted here in room 412 and I went to bedside and updated him regarding her critical condition and grave prognosis. At this time labs are pending. I did follow up with the nurse regarding any immediate needs of which there were none. They were awaiting ABG results to be called to eICU. Total critical care time spent: 60minutes. Timing/Duration: just prior to arrival Severity: severe Allergies and Home Medications Allergies Coded Allergies: amlodipine (Verified Allergy, Severe, Anaphylaxis, 09/07/20) Home Medications Allopurinol 100 Mg Tablet, 150 MG PO DAILY, (Reported) TAKES 1 & (100MG) TABS Alprazolam 0.5 Mg Tablet, 0.5 MG PO BID PRN for ANXIETY, (Reported) Aspirin 81 Mg Tablet.dr, 81 MG PO DAILY, (Reported) Atorvastatin Calcium 20 Mg Tablet, 20 MG PO HS, (Reported) Carvedilol 12.5 Mg Tablet, 12.5 MG PO BID, (Reported) Cholecalciferol (Vitamin D3) 25 Mcg Tablet, 25 MCG PO DAILY, (Reported) Furosemide 40 Mg Tablet, 40 MG PO MO,TU,SARANYA,FR,SAT, (Reported) ONLY TAKES 5 DAYS PER WEEK (DOES NOT TAKE ON SUN AND WED) Mycophenolate Sodium 180 Mg Tablet.dr, 360 MG PO BID, (Reported) TAKES 2 (180MG) TABS Omeprazole 20 Mg Capsule.dr, 20 MG PO DAILY, (Reported) Prednisone 5 Mg Tablet, 5 MG PO DAILY, (Reported) MED ON HOLD AND IS SCHEDULED TO BE RESUMED ON 09-18-2020 Sulfamethoxazole/Trimethoprim 1 Each Tablet, 1 EA PO DAILY, (Reported) Tacrolimus 0.5 Mg Capsule, 0.5 MG PO 1800, (Reported) Tacrolimus 1 Mg Capsule, 1 MG PO DAILY, (Reported) Physical Exam Vital Signs Vital Signs - First Documented 09/16/20 09/16/20 09/16/20 00:00 08:00 08:14 Temp 36.8 Pulse 87 Resp 33 B/P (MAP) 149/100 (116) Pulse Ox 96 O2 Delivery NIV Bilevel O2 Flow Rate 80.00 FiO2 80 Capillary Refill : Less Than 3 Seconds Height, Weight, BMI Height: 5'4.00" Weight: 190lbs. 0oz. 86.823964hh; 30.26 BMI Method:Stated General Appearance: severe distress Procedures/Interventions Date of ETT Placement: Sep 22, 2020 Tube Size: 7.50 Critical Care Note Critical Care Total Time (minutes) 60 Progress/Results/Core Measures Results/Orders Lab Results Laboratory Tests Test 09/14/20 12:25 09/14/20 15:02 09/14/20 16:10 09/14/20 20:18 Range/Units White Blood Count 15.6 H 4.3-11.0 10^3/uL Red Blood Count 5.03 3.80-5.11 10^6/uL Hemoglobin 14.1 # 11.5-16.0 g/dL Hematocrit 43 35-52 % Mean Corpuscular Volume 86 80-99 fL Mean Corpuscular Hemoglobin 28 25-34 pg Mean Corpuscular Hemoglobin Concent 33 32-36 g/dL Red Cell Distribution Width 13.6 10.0-14.5 % Platelet Count 184 130-400 10^3/uL Mean Platelet Volume 11.3 9.0-12.2 fL Immature Granulocyte % (Auto) 5 % Neutrophils (%) (Auto) 79 H 42-75 % Lymphocytes (%) (Auto) 11 L 12-44 % Monocytes (%) (Auto) 5 0-12 % Eosinophils (%) (Auto) 0 0-10 % Basophils (%) (Auto) 0 0-10 % Neutrophils # (Auto) 12.3 H 1.8-7.8 10^3/uL Lymphocytes # (Auto) 1.7 1.0-4.0 10^3/uL Monocytes # (Auto) 0.8 0.0-1.0 10^3/uL Eosinophils # (Auto) 0.0 0.0-0.3 10^3/uL Basophils # (Auto) 0.1 0.0-0.1 10^3/uL Immature Granulocyte # (Auto) 0.7 H 0.0-0.1 10^3/uL Neutrophils % (Manual) 87 % Lymphocytes % (Manual) 7 % Monocytes % (Manual) 4 % Band Neutrophils 2 % Blood Morphology Comment NORMAL D-Dimer 0.97 H 0.00-0.49 UG/ML Sodium Level 137 135-145 MMOL/L Potassium Level 4.3 3.6-5.0 MMOL/L Chloride Level 98 98-107 MMOL/L Carbon Dioxide Level 24 21-32 MMOL/L Anion Gap 15 H 5-14 MMOL/L Blood Urea Nitrogen 43 H 7-18 MG/DL Creatinine 1.11 0.60-1.30 MG/DL Estimat Glomerular Filtration Rate 48 BUN/Creatinine Ratio 39 Glucose Level 449 *H 70-105 MG/DL Lactic Acid Level 2.16 *H 1.45 0.50-2.00 MMOL/L Calcium Level 8.6 8.5-10.1 MG/DL Corrected Calcium 9.0 8.5-10.1 MG/DL Total Bilirubin 1.3 H 0.1-1.0 MG/DL Aspartate Amino Transf (AST/SGOT) 16 5-34 U/L Alanine Aminotransferase (ALT/SGPT) 18 0-55 U/L Alkaline Phosphatase 50 40-136 U/L C-Reactive Protein High Sensitivity 8.64 H 0.00-0.50 MG/DL Total Protein 6.8 6.4-8.2 GM/DL Albumin 3.5 3.2-4.5 GM/DL Beta-Hydroxybutyrate (Chem panel) 0.31 H 0.00-0.27 MMOL/L Procalcitonin 0.05 <0.10 NG/ML Urine Color YELLOW Urine Clarity CLEAR Urine pH 6.0 5-9 Urine Specific [place] 1.015 L 1.016-1.022 Urine Protein TRACE H NEGATIVE Urine Glucose (UA) 3+ H NEGATIVE Urine Ketones NEGATIVE NEGATIVE Urine Nitrite NEGATIVE NEGATIVE Urine Bilirubin NEGATIVE NEGATIVE Urine Urobilinogen 0.2 < = 1.0 MG/DL Urine Leukocyte Esterase NEGATIVE NEGATIVE Urine RBC (Auto) TRACE-I NEGATIVE Urine RBC RARE /HPF Urine WBC RARE /HPF Urine Squamous Epithelial Cells RARE /HPF Urine Crystals NONE /LPF Urine Bacteria NEGATIVE /HPF Urine Casts NONE /LPF Urine Mucus NEGATIVE /LPF Urine Culture Indicated NO Glucometer 300 H 363 H 70-110 MG/DL Test 09/15/20 00:26 09/15/20 03:20 09/15/20 09:25 09/15/20 11:39 Range/Units Blood Gas Puncture Site LFT RAD RT RAD Blood Gas Patient Temperature 37.9 98.2 Arterial Blood pH 7.45 H 7.44 H 7.37-7.43 Arterial Blood Partial Pressure CO2 44 41 35-45 MMHG Arterial Blood Partial Pressure O2 106 H 69 L 79-93 MMHG Arterial Blood HCO3 30 H 27 23-27 MMOL/L Arterial Blood Total CO2 31.4 H 28.5 21.0-31.0 MMOL/L Arterial Blood Oxygen Saturation 98 92 L 94-100 % Arterial Blood Base Excess 6.3 H 3.3 H -2.5-2.5 MMOL/L Venkata Test POS YES-POS Blood Gas Ventilator Setting NO NA Blood Gas Inspired Oxygen 100% 100% White Blood Count 15.4 H 4.3-11.0 10^3/uL Red Blood Count 4.87 3.80-5.11 10^6/uL Hemoglobin 13.7 11.5-16.0 g/dL Hematocrit 42 35-52 % Mean Corpuscular Volume 87 80-99 fL Mean Corpuscular Hemoglobin 28 25-34 pg Mean Corpuscular Hemoglobin Concent 32 32-36 g/dL Red Cell Distribution Width 13.6 10.0-14.5 % Platelet Count 169 130-400 10^3/uL Mean Platelet Volume 11.0 9.0-12.2 fL Immature Granulocyte % (Auto) 5 % Neutrophils (%) (Auto) 83 H 42-75 % Lymphocytes (%) (Auto) 8 L 12-44 % Monocytes (%) (Auto) 3 0-12 % Eosinophils (%) (Auto) 1 0-10 % Basophils (%) (Auto) 0 0-10 % Neutrophils # (Auto) 12.7 H 1.8-7.8 10^3/uL Lymphocytes # (Auto) 1.2 1.0-4.0 10^3/uL Monocytes # (Auto) 0.5 0.0-1.0 10^3/uL Eosinophils # (Auto) 0.1 0.0-0.3 10^3/uL Basophils # (Auto) 0.0 0.0-0.1 10^3/uL Immature Granulocyte # (Auto) 0.8 H 0.0-0.1 10^3/uL Sodium Level 140 135-145 MMOL/L Potassium Level 4.3 3.6-5.0 MMOL/L Chloride Level 100 98-107 MMOL/L Carbon Dioxide Level 22 21-32 MMOL/L Anion Gap 18 H 5-14 MMOL/L Blood Urea Nitrogen 32 H 7-18 MG/DL Creatinine 0.90 0.60-1.30 MG/DL Estimat Glomerular Filtration Rate > 60 BUN/Creatinine Ratio 36 Glucose Level 296 H 70-105 MG/DL Lactic Acid Level 1.25 0.50-2.00 MMOL/L Calcium Level 9.3 8.5-10.1 MG/DL Phosphorus Level 2.3 2.3-4.7 MG/DL Magnesium Level 2.1 1.6-2.4 MG/DL B-Type Natriuretic Peptide 48.6 <100.0 PG/ML Procalcitonin 0.08 <0.10 NG/ML Glucometer 335 H 70-110 MG/DL Test 09/15/20 16:53 09/16/20 00:31 09/16/20 03:30 09/16/20 03:35 Range/Units Glucometer 322 H 332 H 70-110 MG/DL White Blood Count 14.2 H 4.3-11.0 10^3/uL Red Blood Count 4.46 3.80-5.11 10^6/uL Hemoglobin 12.6 11.5-16.0 g/dL Hematocrit 40 35-52 % Mean Corpuscular Volume 89 80-99 fL Mean Corpuscular Hemoglobin 28 25-34 pg Mean Corpuscular Hemoglobin Concent 32 32-36 g/dL Red Cell Distribution Width 13.7 10.0-14.5 % Platelet Count 180 130-400 10^3/uL Mean Platelet Volume 10.8 9.0-12.2 fL Immature Granulocyte % (Auto) 6 % Neutrophils (%) (Auto) 84 H 42-75 % Lymphocytes (%) (Auto) 7 L 12-44 % Monocytes (%) (Auto) 4 0-12 % Eosinophils (%) (Auto) 0 0-10 % Basophils (%) (Auto) 0 0-10 % Neutrophils # (Auto) 11.9 H 1.8-7.8 10^3/uL Lymphocytes # (Auto) 0.9 L 1.0-4.0 10^3/uL Monocytes # (Auto) 0.6 0.0-1.0 10^3/uL Eosinophils # (Auto) 0.0 0.0-0.3 10^3/uL Basophils # (Auto) 0.1 0.0-0.1 10^3/uL Immature Granulocyte # (Auto) 0.8 H 0.0-0.1 10^3/uL D-Dimer 1.45 H 0.00-0.49 UG/ML Blood Gas Puncture Site LEFT RADIAL Blood Gas Patient Temperature 37.2 Arterial Blood pH 7.45 H 7.37-7.43 Arterial Blood Partial Pressure CO2 42 35-45 MMHG Arterial Blood Partial Pressure O2 89 79-93 MMHG Arterial Blood HCO3 29 H 23-27 MMOL/L Arterial Blood Total CO2 30.0 21.0-31.0 MMOL/L Arterial Blood Oxygen Saturation 97 94-100 % Arterial Blood Base Excess 4.8 H -2.5-2.5 MMOL/L Venkata Test YES-POS Blood Gas Ventilator Setting NO Blood Gas Inspired Oxygen 80% Sodium Level 139 135-145 MMOL/L Potassium Level 4.4 3.6-5.0 MMOL/L Chloride Level 99 98-107 MMOL/L Carbon Dioxide Level 25 21-32 MMOL/L Anion Gap 15 H 5-14 MMOL/L Blood Urea Nitrogen 24 H 7-18 MG/DL Creatinine 0.85 0.60-1.30 MG/DL Estimat Glomerular Filtration Rate > 60 BUN/Creatinine Ratio 28 Glucose Level 348 H 70-105 MG/DL Calcium Level 9.2 8.5-10.1 MG/DL Phosphorus Level 2.3 2.3-4.7 MG/DL Magnesium Level 2.1 1.6-2.4 MG/DL Test 09/16/20 11:25 09/16/20 16:20 09/16/20 21:16 09/17/20 03:15 Range/Units Glucometer 335 H 309 H 281 H 70-110 MG/DL Procalcitonin 0.10 H <0.10 NG/ML Test 09/17/20 03:50 09/17/20 07:57 09/17/20 12:26 09/17/20 16:12 Range/Units White Blood Count 14.4 H 4.3-11.0 10^3/uL Red Blood Count 4.73 3.80-5.11 10^6/uL Hemoglobin 13.3 11.5-16.0 g/dL Hematocrit 41 35-52 % Mean Corpuscular Volume 87 80-99 fL Mean Corpuscular Hemoglobin 28 25-34 pg Mean Corpuscular Hemoglobin Concent 33 32-36 g/dL Red Cell Distribution Width 13.4 10.0-14.5 % Platelet Count 217 130-400 10^3/uL Mean Platelet Volume 11.0 9.0-12.2 fL Immature Granulocyte % (Auto) 5 % Neutrophils (%) (Auto) 82 H 42-75 % Lymphocytes (%) (Auto) 9 L 12-44 % Monocytes (%) (Auto) 4 0-12 % Eosinophils (%) (Auto) 0 0-10 % Basophils (%) (Auto) 0 0-10 % Neutrophils # (Auto) 11.8 H 1.8-7.8 10^3/uL Lymphocytes # (Auto) 1.3 1.0-4.0 10^3/uL Monocytes # (Auto) 0.6 0.0-1.0 10^3/uL Eosinophils # (Auto) 0.0 0.0-0.3 10^3/uL Basophils # (Auto) 0.0 0.0-0.1 10^3/uL Immature Granulocyte # (Auto) 0.7 H 0.0-0.1 10^3/uL Sodium Level 138 135-145 MMOL/L Potassium Level 4.2 3.6-5.0 MMOL/L Chloride Level 98 98-107 MMOL/L Carbon Dioxide Level 27 21-32 MMOL/L Anion Gap 13 5-14 MMOL/L Blood Urea Nitrogen 34 H 7-18 MG/DL Creatinine 0.89 0.60-1.30 MG/DL Estimat Glomerular Filtration Rate > 60 BUN/Creatinine Ratio 38 Glucose Level 238 H 70-105 MG/DL Calcium Level 9.3 8.5-10.1 MG/DL Phosphorus Level 3.1 2.3-4.7 MG/DL Magnesium Level 2.1 1.6-2.4 MG/DL B-Type Natriuretic Peptide 61.3 <100.0 PG/ML Glucometer 206 H 278 H 242 H 70-110 MG/DL Test 09/17/20 20:15 09/17/20 23:33 09/18/20 03:10 09/18/20 07:48 Range/Units Glucometer 189 H 208 H 145 H 70-110 MG/DL White Blood Count 16.5 H 4.3-11.0 10^3/uL Red Blood Count 4.82 3.80-5.11 10^6/uL Hemoglobin 13.7 11.5-16.0 g/dL Hematocrit 41 35-52 % Mean Corpuscular Volume 86 80-99 fL Mean Corpuscular Hemoglobin 28 25-34 pg Mean Corpuscular Hemoglobin Concent 33 32-36 g/dL Red Cell Distribution Width 13.2 10.0-14.5 % Platelet Count 224 130-400 10^3/uL Mean Platelet Volume 10.9 9.0-12.2 fL Immature Granulocyte % (Auto) 4 % Neutrophils (%) (Auto) 80 H 42-75 % Lymphocytes (%) (Auto) 11 L 12-44 % Monocytes (%) (Auto) 6 0-12 % Eosinophils (%) (Auto) 0 0-10 % Basophils (%) (Auto) 0 0-10 % Neutrophils # (Auto) 13.1 H 1.8-7.8 10^3/uL Lymphocytes # (Auto) 1.7 1.0-4.0 10^3/uL Monocytes # (Auto) 0.9 0.0-1.0 10^3/uL Eosinophils # (Auto) 0.0 0.0-0.3 10^3/uL Basophils # (Auto) 0.0 0.0-0.1 10^3/uL Immature Granulocyte # (Auto) 0.7 H 0.0-0.1 10^3/uL Sodium Level 137 135-145 MMOL/L Potassium Level 4.3 3.6-5.0 MMOL/L Chloride Level 101 98-107 MMOL/L Carbon Dioxide Level 22 21-32 MMOL/L Anion Gap 14 5-14 MMOL/L Blood Urea Nitrogen 29 H 7-18 MG/DL Creatinine 0.78 0.60-1.30 MG/DL Estimat Glomerular Filtration Rate > 60 BUN/Creatinine Ratio 37 Glucose Level 156 H 70-105 MG/DL Calcium Level 9.1 8.5-10.1 MG/DL Phosphorus Level 2.6 2.3-4.7 MG/DL Magnesium Level 2.0 1.6-2.4 MG/DL Test 09/18/20 12:03 09/18/20 15:39 09/18/20 20:15 09/18/20 23:29 Range/Units Glucometer 228 H 307 H 190 H 190 H 70-110 MG/DL Test 09/19/20 02:15 09/19/20 08:47 09/19/20 11:08 09/19/20 15:37 Range/Units White Blood Count 11.4 H 4.3-11.0 10^3/uL Red Blood Count 4.62 3.80-5.11 10^6/uL Hemoglobin 13.0 11.5-16.0 g/dL Hematocrit 40 35-52 % Mean Corpuscular Volume 86 80-99 fL Mean Corpuscular Hemoglobin 28 25-34 pg Mean Corpuscular Hemoglobin Concent 33 32-36 g/dL Red Cell Distribution Width 13.2 10.0-14.5 % Platelet Count 184 130-400 10^3/uL Mean Platelet Volume 10.9 9.0-12.2 fL Immature Granulocyte % (Auto) 4 % Neutrophils (%) (Auto) 78 H 42-75 % Lymphocytes (%) (Auto) 12 12-44 % Monocytes (%) (Auto) 6 0-12 % Eosinophils (%) (Auto) 0 0-10 % Basophils (%) (Auto) 0 0-10 % Neutrophils # (Auto) 8.9 H 1.8-7.8 10^3/uL Lymphocytes # (Auto) 1.3 1.0-4.0 10^3/uL Monocytes # (Auto) 0.6 0.0-1.0 10^3/uL Eosinophils # (Auto) 0.0 0.0-0.3 10^3/uL Basophils # (Auto) 0.0 0.0-0.1 10^3/uL Immature Granulocyte # (Auto) 0.5 H 0.0-0.1 10^3/uL Sodium Level 138 135-145 MMOL/L Potassium Level 4.2 3.6-5.0 MMOL/L Chloride Level 100 98-107 MMOL/L Carbon Dioxide Level 26 21-32 MMOL/L Anion Gap 12 5-14 MMOL/L Blood Urea Nitrogen 28 H 7-18 MG/DL Creatinine 0.78 0.60-1.30 MG/DL Estimat Glomerular Filtration Rate > 60 BUN/Creatinine Ratio 36 Glucose Level 166 H 70-105 MG/DL Calcium Level 8.8 8.5-10.1 MG/DL Phosphorus Level 3.0 2.3-4.7 MG/DL Magnesium Level 2.0 1.6-2.4 MG/DL Glucometer 123 H 152 H 266 H 70-110 MG/DL Test 09/19/20 19:59 09/19/20 23:40 09/20/20 03:10 09/20/20 03:40 Range/Units Glucometer 204 H 131 H 70-110 MG/DL White Blood Count 15.6 H 4.3-11.0 10^3/uL Red Blood Count 4.91 3.80-5.11 10^6/uL Hemoglobin 14.0 11.5-16.0 g/dL Hematocrit 42 35-52 % Mean Corpuscular Volume 85 80-99 fL Mean Corpuscular Hemoglobin 29 25-34 pg Mean Corpuscular Hemoglobin Concent 34 32-36 g/dL Red Cell Distribution Width 13.2 10.0-14.5 % Platelet Count 187 130-400 10^3/uL Mean Platelet Volume 10.9 9.0-12.2 fL Immature Granulocyte % (Auto) 5 % Neutrophils (%) (Auto) 76 H 42-75 % Lymphocytes (%) (Auto) 13 12-44 % Monocytes (%) (Auto) 6 0-12 % Eosinophils (%) (Auto) 0 0-10 % Basophils (%) (Auto) 0 0-10 % Neutrophils # (Auto) 11.9 H 1.8-7.8 10^3/uL Lymphocytes # (Auto) 2.0 1.0-4.0 10^3/uL Monocytes # (Auto) 0.9 0.0-1.0 10^3/uL Eosinophils # (Auto) 0.0 0.0-0.3 10^3/uL Basophils # (Auto) 0.1 0.0-0.1 10^3/uL Immature Granulocyte # (Auto) 0.7 H 0.0-0.1 10^3/uL Neutrophils % (Manual) 76 % Lymphocytes % (Manual) 14 % Monocytes % (Manual) 9 % Band Neutrophils 1 % Blood Morphology Comment NORMAL Sodium Level 140 135-145 MMOL/L Potassium Level 4.1 3.6-5.0 MMOL/L Chloride Level 102 98-107 MMOL/L Carbon Dioxide Level 26 21-32 MMOL/L Anion Gap 12 5-14 MMOL/L Blood Urea Nitrogen 26 H 7-18 MG/DL Creatinine 0.71 0.60-1.30 MG/DL Estimat Glomerular Filtration Rate > 60 BUN/Creatinine Ratio 37 Glucose Level 116 H 70-105 MG/DL Calcium Level 8.5 8.5-10.1 MG/DL Phosphorus Level 3.1 2.3-4.7 MG/DL Magnesium Level 2.0 1.6-2.4 MG/DL B-Type Natriuretic Peptide 77.0 <100.0 PG/ML Blood Gas Puncture Site RIGHT RADIAL Blood Gas Patient Temperature 36.4 Arterial Blood pH 7.46 H 7.37-7.43 Arterial Blood Partial Pressure CO2 39 35-45 MMHG Arterial Blood Partial Pressure O2 74 L 79-93 MMHG Arterial Blood HCO3 27 23-27 MMOL/L Arterial Blood Total CO2 28.6 21.0-31.0 MMOL/L Arterial Blood Oxygen Saturation 95 94-100 % Arterial Blood Base Excess 3.6 H -2.5-2.5 MMOL/L Venkata Test YES-POS Blood Gas Ventilator Setting NO Blood Gas Inspired Oxygen 85% Test 09/20/20 09:07 09/20/20 11:09 09/20/20 11:59 09/20/20 16:27 Range/Units Blood Gas Puncture Site LT RAD Blood Gas Patient Temperature 36.8 Arterial Blood pH 7.45 H 7.37-7.43 Arterial Blood Partial Pressure CO2 38 35-45 MMHG Arterial Blood Partial Pressure O2 67 L 79-93 MMHG Arterial Blood HCO3 26 23-27 MMOL/L Arterial Blood Total CO2 27.4 21.0-31.0 MMOL/L Arterial Blood Oxygen Saturation 91 L 94-100 % Arterial Blood Base Excess 2.4 -2.5-2.5 MMOL/L Venkata Test YES-POS Blood Gas Ventilator Setting NO Blood Gas Inspired Oxygen 100% Glucometer 267 H 300 H 304 H 70-110 MG/DL Test 09/20/20 20:10 09/21/20 03:28 11/18/20 11:44 09/21/20 17:30 Range/Units Glucometer 252 H 98 236 H 70-110 MG/DL White Blood Count 17.1 H 4.3-11.0 10^3/uL Red Blood Count 4.93 3.80-5.11 10^6/uL Hemoglobin 13.8 11.5-16.0 g/dL Hematocrit 42 35-52 % Mean Corpuscular Volume 85 80-99 fL Mean Corpuscular Hemoglobin 28 25-34 pg Mean Corpuscular Hemoglobin Concent 33 32-36 g/dL Red Cell Distribution Width 13.2 10.0-14.5 % Platelet Count 173 130-400 10^3/uL Mean Platelet Volume 11.0 9.0-12.2 fL Immature Granulocyte % (Auto) 5 % Neutrophils (%) (Auto) 76 H 42-75 % Lymphocytes (%) (Auto) 13 12-44 % Monocytes (%) (Auto) 6 0-12 % Eosinophils (%) (Auto) 0 0-10 % Basophils (%) (Auto) 0 0-10 % Neutrophils # (Auto) 12.9 H 1.8-7.8 10^3/uL Lymphocytes # (Auto) 2.3 1.0-4.0 10^3/uL Monocytes # (Auto) 1.0 0.0-1.0 10^3/uL Eosinophils # (Auto) 0.0 0.0-0.3 10^3/uL Basophils # (Auto) 0.0 0.0-0.1 10^3/uL Immature Granulocyte # (Auto) 0.9 H 0.0-0.1 10^3/uL Sodium Level 141 135-145 MMOL/L Potassium Level 4.1 3.6-5.0 MMOL/L Chloride Level 103 98-107 MMOL/L Carbon Dioxide Level 25 21-32 MMOL/L Anion Gap 13 5-14 MMOL/L Blood Urea Nitrogen 39 H 7-18 MG/DL Creatinine 0.87 0.60-1.30 MG/DL Estimat Glomerular Filtration Rate > 60 BUN/Creatinine Ratio 45 Glucose Level 82 70-105 MG/DL Calcium Level 8.6 8.5-10.1 MG/DL Phosphorus Level 3.4 2.3-4.7 MG/DL Magnesium Level 1.9 1.6-2.4 MG/DL Test 09/21/20 18:40 09/21/20 20:18 09/22/20 02:25 09/22/20 02:35 Range/Units Urine Color YELLOW Urine Clarity CLEAR Urine pH 6.0 5-9 Urine Specific [place] 1.025 H 1.016-1.022 Urine Protein NEGATIVE NEGATIVE Urine Glucose (UA) NEGATIVE NEGATIVE Urine Ketones NEGATIVE NEGATIVE Urine Nitrite NEGATIVE NEGATIVE Urine Bilirubin NEGATIVE NEGATIVE Urine Urobilinogen 0.2 < = 1.0 MG/DL Urine Leukocyte Esterase NEGATIVE NEGATIVE Urine RBC (Auto) NEGATIVE NEGATIVE Urine RBC RARE /HPF Urine WBC NONE /HPF Urine Squamous Epithelial Cells NONE /HPF Urine Crystals NONE /LPF Urine Bacteria NEGATIVE /HPF Urine Casts NONE /LPF Urine Mucus NEGATIVE /LPF Urine Culture Indicated NO Glucometer 243 H 70-110 MG/DL White Blood Count 13.4 H 4.3-11.0 10^3/uL Red Blood Count 4.67 3.80-5.11 10^6/uL Hemoglobin 13.1 11.5-16.0 g/dL Hematocrit 40 35-52 % Mean Corpuscular Volume 85 80-99 fL Mean Corpuscular Hemoglobin 28 25-34 pg Mean Corpuscular Hemoglobin Concent 33 32-36 g/dL Red Cell Distribution Width 13.3 10.0-14.5 % Platelet Count 136 130-400 10^3/uL Mean Platelet Volume 11.6 9.0-12.2 fL Immature Granulocyte % (Auto) 6 % Neutrophils (%) (Auto) 81 H 42-75 % Lymphocytes (%) (Auto) 8 L 12-44 % Monocytes (%) (Auto) 6 0-12 % Eosinophils (%) (Auto) 0 0-10 % Basophils (%) (Auto) 0 0-10 % Neutrophils # (Auto) 10.8 H 1.8-7.8 10^3/uL Lymphocytes # (Auto) 1.0 1.0-4.0 10^3/uL Monocytes # (Auto) 0.7 0.0-1.0 10^3/uL Eosinophils # (Auto) 0.0 0.0-0.3 10^3/uL Basophils # (Auto) 0.0 0.0-0.1 10^3/uL Immature Granulocyte # (Auto) 0.8 H 0.0-0.1 10^3/uL Sodium Level 139 135-145 MMOL/L Potassium Level 4.4 3.6-5.0 MMOL/L Chloride Level 103 98-107 MMOL/L Carbon Dioxide Level 23 21-32 MMOL/L Anion Gap 13 5-14 MMOL/L Blood Urea Nitrogen 32 H 7-18 MG/DL Creatinine 0.82 0.60-1.30 MG/DL Estimat Glomerular Filtration Rate > 60 BUN/Creatinine Ratio 39 Glucose Level 162 H 70-105 MG/DL Calcium Level 8.4 L 8.5-10.1 MG/DL Phosphorus Level 4.0 2.3-4.7 MG/DL Magnesium Level 1.8 1.6-2.4 MG/DL Triglycerides Level 244 H <150 MG/DL Blood Gas Puncture Site [facility] RAD Blood Gas Patient Temperature 35.8 Arterial Blood pH 7.47 H 7.37-7.43 Arterial Blood Partial Pressure CO2 35 35-45 MMHG Arterial Blood Partial Pressure O2 73 L 79-93 MMHG Arterial Blood HCO3 25 23-27 MMOL/L Arterial Blood Total CO2 26.5 21.0-31.0 MMOL/L Arterial Blood Oxygen Saturation 95 94-100 % Arterial Blood Base Excess 1.8 -2.5-2.5 MMOL/L Venkata Test POS Blood Gas Ventilator Setting YES Blood Gas Inspired Oxygen 80% Test 09/22/20 11:07 09/22/20 15:30 09/22/20 16:40 09/22/20 17:05 Range/Units Glucometer 142 H 70-110 MG/DL White Blood Count 41.4 *H 4.3-11.0 10^3/uL Red Blood Count 4.86 3.80-5.11 10^6/uL Hemoglobin 13.7 11.5-16.0 g/dL Hematocrit 43 35-52 % Mean Corpuscular Volume 88 80-99 fL Mean Corpuscular Hemoglobin 28 25-34 pg Mean Corpuscular Hemoglobin Concent 32 32-36 g/dL Red Cell Distribution Width 13.5 10.0-14.5 % Platelet Count 215 130-400 10^3/uL Mean Platelet Volume 11.7 9.0-12.2 fL Immature Granulocyte % (Auto) 12 % Neutrophils (%) (Auto) 67 42-75 % Lymphocytes (%) (Auto) 18 12-44 % Monocytes (%) (Auto) 3 0-12 % Eosinophils (%) (Auto) 0 0-10 % Basophils (%) (Auto) 0 0-10 % Neutrophils # (Auto) 27.7 H 1.8-7.8 10^3/uL Lymphocytes # (Auto) 7.6 H 1.0-4.0 10^3/uL Monocytes # (Auto) 1.2 H 0.0-1.0 10^3/uL Eosinophils # (Auto) 0.0 0.0-0.3 10^3/uL Basophils # (Auto) 0.0 0.0-0.1 10^3/uL Immature Granulocyte # (Auto) 4.9 H 0.0-0.1 10^3/uL Neutrophils % (Manual) 76 % Lymphocytes % (Manual) 17 % Monocytes % (Manual) 1 % Eosinophils % (Manual) 0 % Basophils % (Manual) 0 % Metamyelocytes % 3 % Band Neutrophils 3 % Smudge Cells MOD Blood Morphology Comment NORMAL Sodium Level 137 135-145 MMOL/L Potassium Level 5.3 H 3.6-5.0 MMOL/L Chloride Level 103 98-107 MMOL/L Carbon Dioxide Level 22 21-32 MMOL/L Anion Gap 12 5-14 MMOL/L Blood Urea Nitrogen 30 H 7-18 MG/DL Creatinine 1.13 0.60-1.30 MG/DL Estimat Glomerular Filtration Rate 47 BUN/Creatinine Ratio 27 Glucose Level 392 H 70-105 MG/DL Calcium Level 7.9 L 8.5-10.1 MG/DL Corrected Calcium 8.9 8.5-10.1 MG/DL Phosphorus Level 5.1 H 2.3-4.7 MG/DL Magnesium Level 2.0 1.6-2.4 MG/DL Total Bilirubin 0.8 0.1-1.0 MG/DL Aspartate Amino Transf (AST/SGOT) 45 H 5-34 U/L Alanine Aminotransferase (ALT/SGPT) 50 0-55 U/L Alkaline Phosphatase 54 40-136 U/L Troponin I < 0.028 <0.028 NG/ML Total Protein 5.6 L 6.4-8.2 GM/DL Albumin 2.8 L 3.2-4.5 GM/DL Blood Gas Puncture Site LEFT RADIAL Blood Gas Patient Temperature 94.7 Arterial Blood pH 7.40 7.37-7.43 Arterial Blood Partial Pressure CO2 39 35-45 MMHG Arterial Blood Partial Pressure O2 41 L 79-93 MMHG Arterial Blood HCO3 25 23-27 MMOL/L Arterial Blood Total CO2 25.9 21.0-31.0 MMOL/L Arterial Blood Oxygen Saturation 62 L 94-100 % Arterial Blood Base Excess -0.1 -2.5-2.5 MMOL/L Venkata Test NA Blood Gas Ventilator Setting YES Blood Gas Inspired Oxygen 100% Lactic Acid Level 3.01 *H 0.50-2.00 MMOL/L Test 09/22/20 17:13 Range/Units Glucometer 309 H 70-110 MG/DL Micro Results Microbiology 09/16/20 MRSA Screen - Final, Complete MRSA not isolated 09/14/20 Blood Culture - Final, Complete No growth 09/14/20 Blood Culture - Final, Complete No growth My Orders Orders - NOLAN RUEDA MD Amiodarone Injection (Cordarone Injectio (09/22/20 15:30) Amiodarone Injection (Cordarone Injectio (09/22/20 15:30) Cbc With Automated Diff (09/22/20 15:32) Comprehensive Metabolic Panel (09/22/20 15:32) Troponin I (09/22/20 15:32) Lactic Acid Analyzer (09/22/20 15:32) Magnesium (09/22/20 15:32) Phosphorus (09/22/20 15:32) Midazolam Injection (Versed Injection) (09/22/20 15:34) Manual Differential (09/22/20 15:30) Chest Pa/Lat (2 View) (09/22/20 15:44) Arterial Blood Gas (09/22/20 16:18) Arterial Blood Draw (09/22/20 16:18) Medications Given in ED Current Medications Medications Dose Ordered Sig/Omid Route Start Time Stop Time Status Last Admin Dose Admin Midazolam HCl 5 mg ONCE ONCE IVP 09/22/20 15:45 09/22/20 15:52 DC 09/22/20 15:48 5 MG Vital Signs/I&O 09/16/20 09/16/20 09/16/20 09/16/20 00:00 01:00 01:00 02:00 Pulse 87 81 86 84 Resp 33 29 34 B/P (MAP) 149/100 (116) 162/98 (119) 145/94 (111) Pulse Ox 96 96 95 O2 Delivery NIV Bilevel NIV Bilevel NIV Bilevel O2 Flow Rate 80.00 80.00 80.00 09/16/20 09/16/20 09/16/20 09/16/20 02:13 03:00 04:00 05:00 Pulse 85 82 83 81 Resp 31 31 33 31 B/P (MAP) 161/87 (111) 152/101 (118) 140/101 (114) Pulse Ox 95 97 95 94 O2 Delivery NIV Bilevel NIV Bilevel NIV Bilevel O2 Flow Rate 80.00 80.00 80.00 80.00 09/16/20 09/16/20 09/16/20 09/16/20 06:00 07:00 07:01 08:00 Pulse 92 89 86 93 Resp 31 28 32 28 B/P (MAP) 136/107 (117) 118/88 (98) 136/99 (111) Pulse Ox 95 93 93 96 O2 Delivery NIV Bilevel NIV Bilevel NIV Bilevel O2 Flow Rate 80.00 80.00 80.00 80.00 09/16/20 09/16/20 09/16/20 09/16/20 08:00 08:02 08:14 09:00 Temp 36.8 Pulse 89 89 Resp 18 B/P (MAP) 140/93 (109) Pulse Ox 95 94 O2 Delivery NIV Bilevel NIV Bilevel NIV Bilevel O2 Flow Rate 80.00 80.00 FiO2 80 09/16/20 09/16/20 09/16/20 09/16/20 09:34 10:00 10:12 10:36 Pulse 86 83 Resp 32 37 B/P (MAP) 132/83 (99) Pulse Ox 95 95 O2 Delivery NIV Bilevel NIV Bilevel NIV Bilevel O2 Flow Rate 90.00 90.00 80.00 80.00 09/16/20 09/16/20 09/16/20 09/16/20 11:00 11:13 12:00 13:00 Temp 35.3 Pulse 82 79 93 Resp 32 29 8 B/P (MAP) 159/101 (120) 130/81 (97) 138/84 (102) Pulse Ox 94 98 100 O2 Delivery NIV Bilevel NIV Bilevel NIV Bilevel O2 Flow Rate 80.00 80.00 80.00 09/16/20 09/16/20 09/16/20 09/16/20 13:05 13:08 14:00 14:03 Pulse 86 86 Resp 37 B/P (MAP) 122/69 (86) Pulse Ox 99 99 O2 Delivery Vapotherm Vapotherm Vapotherm O2 Flow Rate 40.00 40.00 40.00 100.00 100.00 FiO2 100 09/16/20 09/16/20 09/16/20 09/16/20 14:05 15:00 15:01 16:00 Temp 35.3 Pulse 93 98 Resp 37 32 B/P (MAP) 133/82 (99) 131/64 (86) Pulse Ox 93 92 O2 Delivery Vapotherm Vapotherm Vapotherm O2 Flow Rate 40.00 40.00 40.00 80.00 80.00 80.00 09/16/20 09/16/20 09/16/20 09/16/20 16:00 17:00 17:35 18:00 Temp 36.4 Pulse 84 86 Resp 38 34 B/P (MAP) 151/106 (121) 146/105 (119) Pulse Ox 93 95 O2 Delivery Vapotherm NIV Bilevel NIV Bilevel O2 Flow Rate 40.00 100.00 100.00 80.00 09/16/20 09/16/20 09/16/20 09/16/20 19:00 19:00 20:00 20:00 Temp 36.1 Pulse 86 85 83 Resp 29 28 B/P (MAP) 151/101 (118) 168/110 (129) Pulse Ox 97 94 O2 Delivery NIV Bilevel NIV Bilevel O2 Flow Rate 100.00 100.00 09/16/20 09/16/20 09/16/20 09/16/20 20:00 21:00 22:00 23:00 Pulse 89 84 81 Resp 25 26 36 B/P (MAP) 135/107 (116) 142/90 (107) 134/98 (110) Pulse Ox 93 96 94 96 O2 Delivery NIV Bilevel NIV Bilevel NIV Bilevel NIV Bilevel O2 Flow Rate 100.00 100.00 100.00 FiO2 100 09/16/20 09/17/20 09/17/20 09/17/20 23:05 00:00 01:00 01:00 Pulse 94 83 82 81 Resp 37 31 33 B/P (MAP) 143/101 (115) 145/97 (113) Pulse Ox 95 95 95 O2 Delivery NIV Bilevel NIV Bilevel O2 Flow Rate 100.00 100.00 100.00 09/17/20 09/17/20 09/17/20 09/17/20 02:00 03:00 03:40 03:53 Pulse 81 80 78 Resp 30 32 28 B/P (MAP) 154/105 (121) 155/86 (109) Pulse Ox 96 96 93 O2 Delivery NIV Bilevel NIV Bilevel NIV Bilevel O2 Flow Rate 100.00 100.00 100.00 90.00 09/17/20 09/17/20 09/17/20 09/17/20 04:00 05:00 06:00 06:03 Pulse 82 81 79 Resp 30 28 28 B/P (MAP) 146/93 (110) 130/91 (104) 132/93 (106) Pulse Ox 91 98 93 O2 Delivery NIV Bilevel NIV Bilevel NIV Bilevel NIV Bilevel O2 Flow Rate 100.00 100.00 100.00 60.00 09/17/20 09/17/20 09/17/20 09/17/20 06:53 07:00 07:00 07:08 Pulse 80 79 81 Resp 27 31 B/P (MAP) 141/104 (116) Pulse Ox 91 89 O2 Delivery NIV Bilevel NIV Bilevel O2 Flow Rate 60.00 60.00 60.00 09/17/20 09/17/20 09/17/20 09/17/20 07:57 08:00 08:00 08:38 Temp 36.4 Pulse 82 Resp 28 B/P (MAP) 138/90 (106) Pulse Ox 90 88 O2 Delivery NIV Bilevel Vapotherm NIV Bilevel O2 Flow Rate 60.00 100.00 FiO2 100 09/17/20 09/17/20 09/17/20 09/17/20 09:00 10:00 10:31 11:00 Pulse 81 80 81 78 Resp 33 32 36 33 B/P (MAP) 128/92 (104) 136/103 (114) 152/92 (112) Pulse Ox 97 96 95 93 O2 Delivery NIV Bilevel NIV Bilevel NIV Bilevel O2 Flow Rate 100.00 100.00 100.00 75.00 09/17/20 09/17/20 09/17/20 09/17/20 12:00 12:57 13:00 13:54 Temp 36.4 Pulse 78 80 80 Resp 32 27 B/P (MAP) 144/89 (107) 157/101 (119) Pulse Ox 93 95 O2 Delivery NIV Bilevel NIV Bilevel O2 Flow Rate 75.00 75.00 09/17/20 09/17/20 09/17/20 09/17/20 14:00 14:52 15:00 16:00 Pulse 80 75 77 81 Resp 26 36 36 33 B/P (MAP) 140/91 (107) 133/85 (101) 124/87 (99) Pulse Ox 93 95 92 93 O2 Delivery NIV Bilevel NIV Bilevel NIV Bilevel O2 Flow Rate 75.00 55.00 55.00 55.00 09/17/20 09/17/20 09/17/20 09/17/20 16:00 17:00 18:00 18:26 Temp 36.0 Pulse 83 80 88 Resp 34 34 29 B/P (MAP) 133/87 (102) 142/83 (102) Pulse Ox 93 94 95 O2 Delivery NIV Bilevel NIV Bilevel O2 Flow Rate 55.00 55.00 55.00 09/17/20 09/17/20 09/17/20 09/17/20 19:00 19:00 20:00 20:00 Pulse 91 80 79 Resp 19 26 B/P (MAP) 143/84 (103) 125/80 (95) Pulse Ox 92 94 93 O2 Delivery NIV Bilevel NIV Bilevel NIV Bilevel O2 Flow Rate 55.00 55.00 FiO2 55 09/17/20 09/17/20 09/17/20 09/17/20 21:00 22:00 23:00 23:42 Pulse 86 86 84 84 Resp 22 17 26 24 B/P (MAP) 146/93 (110) 167/100 (122) 141/90 (107) Pulse Ox 96 98 92 93 O2 Delivery NIV Bilevel NIV Bilevel NIV Bilevel O2 Flow Rate 55.00 55.00 55.00 50.00 09/18/20 09/18/20 09/18/20 09/18/20 00:00 01:00 01:00 02:00 Pulse 84 85 85 84 Resp 30 33 31 B/P (MAP) 144/93 (110) 130/81 (97) 121/84 (96) Pulse Ox 93 93 93 O2 Delivery NIV Bilevel NIV Bilevel NIV Bilevel O2 Flow Rate 55.00 55.00 55.00 11/15/20 09/18/20 09/18/20 09/18/20 03:00 03:01 03:12 04:00 Pulse 84 88 89 Resp 30 27 29 B/P (MAP) 132/91 (105) 140/101 (114) Pulse Ox 91 93 93 O2 Delivery NIV Bilevel NIV Bilevel NIV Bilevel O2 Flow Rate 55.00 50.00 50.00 50.00 09/18/20 09/18/20 09/18/20 09/18/20 05:00 06:00 06:26 07:00 Pulse 88 84 84 85 Resp 30 30 24 31 B/P (MAP) 138/98 (111) Pulse Ox 91 91 96 93 O2 Delivery NIV Bilevel NIV Bilevel NIV Bilevel O2 Flow Rate 50.00 50.00 50.00 50.00 09/18/20 09/18/20 09/18/20 09/18/20 07:00 07:49 08:00 08:00 Temp 36.2 Pulse 90 87 Resp 27 B/P (MAP) 136/92 (107) Pulse Ox 93 91 O2 Delivery NIV Bilevel NIV Bilevel O2 Flow Rate 50.00 FiO2 55 09/18/20 09/18/20 09/18/20 09/18/20 09:00 10:00 10:28 11:00 Pulse 84 81 87 82 Resp 38 37 34 30 B/P (MAP) 109/79 (89) 125/85 (98) 130/85 (100) Pulse Ox 95 95 94 94 O2 Delivery NIV Bilevel NIV Bilevel NIV Bilevel O2 Flow Rate 50.00 50.00 65.00 50.00 09/18/20 09/18/20 09/18/20 09/18/20 12:00 12:04 13:00 13:00 Temp 36.4 Pulse 84 83 89 Resp 29 32 B/P (MAP) 128/83 (98) 116/74 (88) Pulse Ox 94 92 O2 Delivery NIV Bilevel NIV Bilevel O2 Flow Rate 50.00 50.00 09/18/20 09/18/20 09/18/20 09/18/20 14:00 14:35 15:00 16:00 Pulse 92 99 87 Resp 35 33 29 B/P (MAP) 111/70 (84) 135/85 (102) 155/103 (120) Pulse Ox 92 92 91 O2 Delivery NIV Bilevel Vapotherm Vapotherm Vapotherm O2 Flow Rate 50.00 35.00 35.00 35.00 75.00 75.00 FiO2 75 09/18/20 09/18/20 09/18/20 09/18/20 17:00 18:00 18:55 19:00 Pulse 80 87 88 Resp 36 34 38 B/P (MAP) 147/109 (122) 155/106 (122) 135/95 (108) Pulse Ox 94 93 94 94 O2 Delivery NIV Bilevel NIV Bilevel Vapotherm NIV Bilevel O2 Flow Rate 35.00 35.00 35.00 75.00 75.00 75.00 FiO2 75 09/18/20 09/18/20 09/18/20 09/18/20 19:00 19:23 19:30 20:00 Pulse 88 89 80 Resp 27 32 B/P (MAP) Pulse Ox 94 97 93 O2 Delivery NIV Bilevel NIV Bilevel O2 Flow Rate 100.00 100.00 FiO2 100 09/18/20 09/18/20 09/18/20 09/18/20 20:00 20:14 21:00 22:00 Temp 36.2 Pulse 91 85 84 Resp 29 24 30 B/P (MAP) 142/102 (115) 130/110 (117) 145/108 (120) Pulse Ox 97 98 98 O2 Delivery NIV Bilevel NIV Bilevel NIV Bilevel O2 Flow Rate 100.00 100.00 100.00 09/18/20 09/18/20 09/18/20 09/19/20 22:50 23:00 23:01 00:00 Pulse 87 93 86 Resp 34 22 28 B/P (MAP) 155/115 (128) 162/113 (129) Pulse Ox 97 96 97 O2 Delivery NIV Bilevel NIV Bilevel NIV Bilevel O2 Flow Rate 100.00 100.00 90.00 90.00 09/19/20 09/19/20 09/19/20 09/19/20 00:01 01:00 01:00 02:00 Temp 36.0 Pulse 81 81 84 Resp 29 29 B/P (MAP) 153/97 (115) 156/94 (114) Pulse Ox 98 98 O2 Delivery NIV Bilevel NIV Bilevel O2 Flow Rate 90.00 90.00 09/19/20 09/19/20 09/19/20 09/19/20 02:51 03:00 04:00 05:00 Pulse 87 93 80 81 Resp 32 19 28 29 B/P (MAP) 154/104 (121) 138/93 (108) 139/99 (112) Pulse Ox 97 94 92 92 O2 Delivery NIV Bilevel NIV Bilevel NIV Bilevel O2 Flow Rate 90.00 60.00 60.00 60.00 09/19/20 09/19/20 09/19/20 09/19/20 06:00 06:45 07:00 07:39 Pulse 83 88 89 Resp 32 28 B/P (MAP) 138/98 (111) 136/103 (114) Pulse Ox 92 93 92 O2 Delivery NIV Bilevel NIV Bilevel Vapotherm O2 Flow Rate 60.00 60.00 30.00 FiO2 70 09/19/20 09/19/20 09/19/20 09/19/20 07:45 08:00 08:00 09:00 Temp 36.0 Pulse 84 90 Resp 30 30 B/P (MAP) 160/97 (118) 151/105 (120) Pulse Ox 92 92 90 O2 Delivery Vapotherm NIV Bilevel NIV Bilevel O2 Flow Rate 40.00 60.00 60.00 FiO2 90 09/19/20 09/19/20 09/19/20 09/19/20 09:36 10:00 10:31 11:00 Pulse 90 84 Resp 28 31 B/P (MAP) 130/81 (97) 149/92 (111) Pulse Ox 91 92 93 O2 Delivery Vapotherm Vapotherm Vapotherm Vapotherm O2 Flow Rate 40.00 40.00 40.00 40.00 90.00 90.00 90.00 FiO2 90 09/19/20 09/19/20 09/19/20 09/19/20 11:09 12:00 12:36 13:00 Temp 36.8 Pulse 83 82 86 Resp 26 29 B/P (MAP) 138/95 (109) 166/103 (124) Pulse Ox 91 87 O2 Delivery Vapotherm Vapotherm O2 Flow Rate 40.00 40.00 90.00 90.00 09/19/20 09/19/20 09/19/20 09/19/20 13:44 13:54 14:00 15:00 Pulse 85 83 82 Resp 29 29 31 B/P (MAP) 138/91 (107) 155/93 (113) Pulse Ox 91 91 94 O2 Delivery NIV Bilevel NIV Bilevel NIV Bilevel O2 Flow Rate 90.00 90.00 90.00 90.00 09/19/20 09/19/20 09/19/20 09/19/20 15:35 16:00 17:00 18:00 Temp 36.0 Pulse 85 89 93 Resp 28 21 31 B/P (MAP) 167/96 (119) 156/111 (126) 155/108 (124) Pulse Ox 93 92 93 O2 Delivery NIV Bilevel NIV Bilevel NIV Bilevel O2 Flow Rate 90.00 90.00 90.00 09/19/20 09/19/20 09/19/20 09/19/20 18:35 19:00 19:00 19:25 Temp 36.2 Pulse 85 86 86 83 Resp 29 31 22 B/P (MAP) 159/105 (123) 161/112 (128) Pulse Ox 95 93 92 O2 Delivery NIV Bilevel NIV Bilevel O2 Flow Rate 90.00 90.00 85.00 09/19/20 09/19/20 09/19/20 09/19/20 20:00 20:30 21:00 22:00 Pulse 84 84 92 Resp 23 27 32 B/P (MAP) 122/105 (111) 134/91 (105) 126/84 (98) Pulse Ox 91 92 91 93 O2 Delivery NIV Bilevel NIV Bilevel NIV Bilevel NIV Bilevel O2 Flow Rate 85.00 85.00 85.00 FiO2 85 09/19/20 09/19/20 09/19/20 09/20/20 22:25 23:00 23:47 00:00 Temp 36.1 Pulse 85 87 89 Resp 29 31 20 B/P (MAP) 134/76 (95) 136/93 (107) Pulse Ox 95 94 92 O2 Delivery NIV Bilevel NIV Bilevel NIV Bilevel O2 Flow Rate 90.00 85.00 85.00 85.00 09/20/20 09/20/20 09/20/20 09/20/20 01:00 01:00 01:34 02:00 Pulse 88 88 85 99 Resp 33 29 20 B/P (MAP) 127/90 (102) 148/100 (116) Pulse Ox 90 95 92 O2 Delivery NIV Bilevel NIV Bilevel O2 Flow Rate 85.00 85.00 85.00 09/20/20 09/20/20 09/20/2017/20 03:00 03:29 04:00 05:00 Temp 36.4 Pulse 92 95 93 Resp 31 31 29 B/P (MAP) 124/86 (99) 131/90 (104) 123/90 (101) Pulse Ox 94 94 95 O2 Delivery NIV Bilevel NIV Bilevel NIV Bilevel NIV Bilevel O2 Flow Rate 85.00 85.00 85.00 85.00 09/20/20 09/20/20 09/20/20 09/20/20 05:12 06:00 06:33 07:00 Pulse 92 87 Resp 31 27 B/P (MAP) 123/82 (96) 131/77 (95) Pulse Ox 93 92 93 O2 Delivery Vapotherm Vapotherm Vapotherm Vapotherm O2 Flow Rate 40.00 40.00 40.00 40.00 100.00 100.00 100.00 FiO2 100 09/20/20 09/20/20 09/20/20 09/20/20 07:30 08:00 08:00 09:00 Pulse 99 83 97 Resp 30 32 B/P (MAP) 139/82 (101) 130/81 (97) Pulse Ox 93 92 92 O2 Delivery Vapotherm Vapotherm Vapotherm O2 Flow Rate 40.00 40.00 40.00 100.00 100.00 FiO2 90 09/20/20 09/20/20 09/20/20 09/20/20 09:45 10:00 10:30 10:33 Pulse 106 99 98 Resp 30 31 B/P (MAP) 130/81 120/72 (88) Pulse Ox 93 94 O2 Delivery Vapotherm NIV Bilevel O2 Flow Rate 40.00 100.00 100.00 100.00 09/20/20 09/20/20 09/20/20 09/20/20 11:00 12:00 12:14 12:26 Temp 35.9 Pulse 98 89 89 Resp 33 33 B/P (MAP) 105/73 (84) 104/77 (86) Pulse Ox 93 96 O2 Delivery NIV Bilevel NIV Bilevel O2 Flow Rate 100.00 100.00 09/20/20 09/20/20 09/20/20 09/20/20 13:00 14:00 15:00 15:19 Pulse 79 82 82 Resp 33 25 35 B/P (MAP) 112/76 (88) 107/70 (82) 100/69 (79) Pulse Ox 96 94 93 95 O2 Delivery NIV Bilevel NIV Bilevel NIV Bilevel Vapotherm O2 Flow Rate 100.00 100.00 100.00 40.00 FiO2 100 09/20/20 09/20/20 09/20/20 09/20/20 16:00 17:00 18:00 18:41 Pulse 80 85 79 79 Resp 32 17 32 31 B/P (MAP) 111/83 (92) 115/77 (90) 107/72 (84) Pulse Ox 94 92 91 91 O2 Delivery NIV Bilevel NIV Bilevel NIV Bilevel O2 Flow Rate 100.00 100.00 100.00 100.00 09/20/20 09/20/20 09/20/20 09/20/20 19:00 19:00 20:00 20:00 Temp 36.0 Pulse 81 81 Resp 33 B/P (MAP) 113/87 (96) Pulse Ox 92 92 O2 Delivery NIV Bilevel NIV Bilevel NIV Bilevel O2 Flow Rate 100.00 100.00 FiO2 100 09/20/20 09/20/20 09/20/20 09/20/20 20:00 20:15 21:00 22:00 Pulse 81 80 86 Resp 31 33 33 B/P (MAP) 115/90 (98) 106/85 (92) 114/80 (91) Pulse Ox 91 93 88 O2 Delivery NIV Bilevel Vapotherm Vapotherm Vapotherm O2 Flow Rate 100.00 40.00 40.00 40.00 100.00 100.00 100.00 09/20/20 09/20/20 09/20/20 09/20/20 22:02 22:05 23:00 23:25 Temp 36.1 Pulse 82 Resp 34 B/P (MAP) 92/70 (77) Pulse Ox 91 94 O2 Delivery Vapotherm NIV Bilevel NIV Bilevel NIV Bilevel O2 Flow Rate 40.00 100.00 100.00 100.00 FiO2 100 09/21/20 09/21/20 09/21/20 09/21/20 00:00 01:00 01:00 02:00 Pulse 84 89 89 81 Resp 26 25 33 B/P (MAP) 103/72 (82) 118/87 (97) 107/78 (88) Pulse Ox 91 91 89 O2 Delivery NIV Bilevel NIV Bilevel NIV Bilevel O2 Flow Rate 100.00 100.00 100.00 09/21/20 09/21/20 09/21/20 09/21/20 02:04 03:00 04:00 05:00 Temp 36.0 Pulse 80 81 86 Resp 34 35 38 B/P (MAP) 114/84 (94) 120/82 (95) Pulse Ox 91 89 91 O2 Delivery NIV Bilevel NIV Bilevel NIV Bilevel O2 Flow Rate 100.00 100.00 100.00 100.00 09/21/20 09/21/20 09/21/20 09/21/20 06:51 07:00 07:42 08:00 Pulse 76 78 68 70 Resp 35 24 B/P (MAP) 93/59 109/71 (84) 75/48 (57) Pulse Ox 81 94 O2 Delivery Mechanical Ventilator Mechanical Ventilator O2 Flow Rate 100.00 100.00 09/21/20 09/21/20 09/21/20 09/21/20 08:00 09:00 10:00 10:22 Pulse 80 75 80 Resp 24 23 24 B/P (MAP) 102/69 (80) 105/69 (81) Pulse Ox 92 94 98 96 O2 Delivery Mechanical Ventilator Mechanical Ventilator Mechanical Ventilator O2 Flow Rate 100.00 100.00 FiO2 100 100 09/21/20 09/21/20 09/21/20 09/21/20 11:00 11:42 12:00 12:26 Pulse 79 75 76 76 Resp 24 24 B/P (MAP) 100/65 (77) 103/67 100/62 (75) Pulse Ox 94 94 O2 Delivery Mechanical Ventilator Mechanical Ventilator O2 Flow Rate 100.00 100.00 09/21/20 09/21/20 09/21/20 09/21/20 13:00 14:00 14:40 15:00 Pulse 75 67 68 72 Resp 24 18 24 24 B/P (MAP) 105/72 (83) 92/68 (76) 114/83 (93) Pulse Ox 95 96 95 94 O2 Delivery Mechanical Ventilator Mechanical Ventilator Mechanical Ventilator O2 Flow Rate 100.00 100.00 100.00 FiO2 100 09/21/20 09/21/20 09/21/20 09/21/20 15:29 16:00 16:05 17:00 Temp 35.0 Pulse 71 73 73 Resp 24 24 B/P (MAP) 111/78 (89) 140/90 (107) Pulse Ox 95 96 O2 Delivery Mechanical Ventilator Mechanical Ventilator O2 Flow Rate 100.00 100.00 09/21/20 09/21/20 09/21/20 09/21/20 18:00 18:06 19:00 19:00 Pulse 71 71 70 70 Resp 23 B/P (MAP) 143/90 (107) 144/91 133/88 (103) Pulse Ox 96 96 O2 Delivery Mechanical Ventilator Mechanical Ventilator O2 Flow Rate 100.00 100.00 09/21/20 09/21/20 09/21/20 09/21/20 19:42 20:00 20:00 20:30 Temp 35.3 Pulse 71 70 Resp 23 B/P (MAP) 125/82 (96) Pulse Ox 97 94 93 O2 Delivery Mechanical Ventilator Mechanical Ventilator Mechanical Ventilator O2 Flow Rate 85.00 85.00 FiO2 100 85 09/21/20 09/21/20 09/21/20 09/21/20 21:00 21:11 22:00 23:00 Pulse 70 69 71 70 Resp 23 B/P (MAP) 133/88 (103) 133/88 118/80 (93) 101/77 (85) Pulse Ox 95 94 95 O2 Delivery Mechanical Ventilator Mechanical Ventilator Mechanical Ventilator Mechanical Ventilator O2 Flow Rate 85.00 85.00 85.00 09/21/20 09/21/20 09/22/20 09/22/20 23:16 23:35 00:00 00:45 Temp 35.6 Pulse 71 70 68 Resp 24 B/P (MAP) 121/76 (91) 106/81 Pulse Ox 94 94 O2 Delivery Mechanical Ventilator Mechanical Ventilator O2 Flow Rate 80.00 80.00 FiO2 85 09/22/20 09/22/20 09/22/20 09/22/20 01:00 01:00 02:00 02:00 Temp 35.8 Pulse 67 70 67 Resp 23 B/P (MAP) 127/77 (94) 131/76 (94) Pulse Ox 94 95 O2 Delivery Mechanical Ventilator Mechanical Ventilator Mechanical Ventilator O2 Flow Rate 80.00 80.00 80.00 09/22/20 09/22/20 09/22/20 09/22/20 02:50 03:00 03:30 04:00 Pulse 66 66 66 66 Resp 24 23 24 B/P (MAP) 116/81 (93) 116/81 114/85 (95) Pulse Ox 95 98 94 O2 Delivery Mechanical Ventilator Mechanical Ventilator Mechanical Ventilator O2 Flow Rate 75.00 75.00 FiO2 80 09/22/20 09/22/20 09/22/20 09/22/20 05:00 06:00 07:00 07:13 Pulse 66 66 67 65 Resp 24 24 24 B/P (MAP) 126/81 (96) 122/80 (94) 98/65 (76) 108/76 Pulse Ox 93 94 94 O2 Delivery Mechanical Ventilator Mechanical Ventilator Mechanical Ventilator O2 Flow Rate 75.00 75.00 75.00 09/22/20 09/22/20 09/22/20 09/22/20 07:28 07:59 08:00 08:17 Temp 36.2 Pulse 74 71 Resp 23 B/P (MAP) 103/70 (81) Pulse Ox 96 96 O2 Delivery Mechanical Ventilator Mechanical Ventilator O2 Flow Rate 75.00 FiO2 70 09/22/20 09/22/20 09/22/20 09/22/20 08:37 09:00 09:35 10:00 Pulse 71 72 73 73 Resp 24 B/P (MAP) 99/65 (76) 99/65 119/76 (90) Pulse Ox 95 94 93 92 O2 Delivery Mechanical Ventilator Mechanical Ventilator O2 Flow Rate 75.00 75.00 FiO2 70 09/22/20 09/22/20 09/22/20 09/22/20 10:20 11:00 11:07 12:00 Temp 36.4 Pulse 68 71 70 Resp 23 B/P (MAP) 113/69 (84) 110/71 (84) Pulse Ox 92 93 93 O2 Delivery Mechanical Ventilator Mechanical Ventilator O2 Flow Rate 75.00 75.00 FiO2 70 09/22/20 09/22/20 09/22/20 09/22/20 13:00 13:12 13:57 14:00 Pulse 68 68 67 67 Resp 23 B/P (MAP) 111/73 (86) 111/73 118/75 (89) Pulse Ox 92 92 O2 Delivery Mechanical Ventilator Mechanical Ventilator O2 Flow Rate 75.00 75.00 09/22/20 09/22/20 09/22/20 15:00 16:00 16:39 Pulse 65 80 80 Resp 20 38 B/P (MAP) 97/70 (79) 105/79 (88) 89/67 Pulse Ox 90 80 O2 Delivery Mechanical Ventilator Mechanical Ventilator O2 Flow Rate 75.00 75.00 09/22/20 00:00 Intake Total 950 ml Output Total 825 ml Balance 125 ml Blood Pressure Mean: 74 FSBG Bedside Testing Finger Stick Blood Glucose: 307 Blood Glucose Action Taken: RN NOTIFIED Clinical Quality Measures DVT/VTE Risk/Contraindication: Risk Factor Score Per Nursin RFS Level Per Nursing on Admit: 4+=Very High NOLAN RUEDA MD Sep 22, 2020 17:52
[2020-09-22] MEDS ORDERED: ACETAMINOPHEN 325 MG TABLET ONE (18:18)
[2020-09-22] MEDS ORDERED: EPINEPHrine 0.1 MG/ML 10 ML (HOSPIRA) SYR IJ ONE (20:05)
[2020-09-22] MEDS ORDERED: D5W 250 ML (EXCEL) BAG IV ONE (20:23)
[2020-09-22] MEDS ORDERED: AMIODARONE (BOLUS) 150 MG/3 ML IV ONE (20:23)
[2020-09-22] MEDS ORDERED: D5W 100 ML BAG IV ONE (20:23)
[2020-09-22] MEDS ORDERED: AMIODARONE 450 MG/9 ML (CORDARONE) VIAL IV ONE (20:23)
[2020-09-22] MEDS: ACETAMINOPHEN 500 MG TAB (TYLENOL) PO PRN (21:26)
[2020-09-22] MEDS ORDERED: LACTATED RINGERS 1,000 ML IV SCH (22:45)
[2020-09-23] VITALS (30 sets, daily range): BP systolic 90–139; BP diastolic 62–92
[2020-09-23] MEDS: LACTATED RINGERS 1,000 ML IV SCH ×4 (03:15→17:44)
[2020-09-23 03:55] LABS: BASOPHILS # (AUTO) 0.1 10^3/uL (0.0-0.1); BASOPHILS % (AUTO) 0 % (0-10); EOSINOPHILS % (AUTO) 0 % (0-10); HEMATOCRIT 36 % (35-52); HEMOGLOBIN 11.6 g/dL (11.5-16.0); LYMPHOCYTES # (AUTO) 6.3 10^3/uL (1.0-4.0); LYMPHOCYTES % (AUTO) 15 % (12-44); MEAN CORPUSCULAR HEMOGLOBIN 29 pg (25-34); MEAN CORPUSCULAR HGB CONC 33 g/dL (32-36); MEAN CORPUSCULAR VOLUME 88 fL (80-99); MEAN PLATELET VOLUME 12.3 fL (9.0-12.2); MONOCYTES # (AUTO) 2.1 10^3/uL (0.0-1.0); MONOCYTES % (AUTO) 5 % (0-12); NEUTROPHILS # (AUTO) 27.6 10^3/uL (1.8-7.8); NEUTROPHILS % (AUTO) 65 % (42-75); PLATELET COUNT 212 10^3/uL (130-400)
[2020-09-23 04:01] LABS: POTASSIUM 4.3 MMOL/L (3.6-5.0)
[2020-09-23 04:02] LABS: CALCIUM 7.1 MG/DL (8.5-10.1)
[2020-09-23 04:07] LABS: CREATININE SERUM 1.05 MG/DL (0.60-1.30); PHOSPHORUS 3.7 MG/DL (2.3-4.7)
[2020-09-23 04:09] LABS: MAGNESIUM 1.5 MG/DL (1.6-2.4)
[2020-09-23] MEDS: RT-ALBUTEROL INHALER HFA (VENTOLIN HFA) 18 GM IH SCH ×6 (04:09→22:33)
[2020-09-23] MEDS: PROPOFOL DRIP (ICU) 100 ML IV SCH ×4 (04:36→17:45)
[2020-09-23] MEDS: NOREPINEPHRINE 4 MG/250 ML 250 ML IV SCH ×5 (04:37→21:53)
[2020-09-23] MEDS ORDERED: MAGNESIUM 1 GM/100 ML IVPB 100 ML IV ONE ×2 (04:45→06:00)
[2020-09-23] MEDS: MEROPENEM 1,000 MG in WATER (STERILE) FOR INJECTION 20 ML IV SCH ×3 (05:09→21:30)
[2020-09-23] MEDS: inSUlin ASPART (NovoLOG) 1 UNIT/0.01 ML (CHARGE PER UNIT) SC SCH ×3 (06:45→21:29)
[2020-09-23] MEDS: MAGNESIUM 1 GM/100 ML IVPB 100 ML IV SCH (06:55)
[2020-09-23] MEDS: POTASSIUM CL 10MEQ/50ML IVPB 50 ML IV SCH (06:55)
[2020-09-23] MEDS: KCL 20 MEQ TAB (K-DUR) PO SCH (06:56)
[2020-09-23 07:50] LABS: ABG BASE EXCESS -4.1 MMOL/L (-2.5-2.5); ABG OXYGEN SATURATION 94 % (94-100); ABG PCO2 34 MMHG (35-45); ABG PH 7.39 (7.37-7.43); ABG PO2 92 MMHG (79-93); ABG TCO2 20.7 MMOL/L (21.0-31.0)
[2020-09-23 07:52] LABS: ALLENS TEST YES-POS; INSPIRED O2 75%; PATIENT TEMP 38.7; VENTILATOR NO
[2020-09-23] MEDS: ANIDULAFUNGIN INJECTION 100 MG in NS (IVPB) 100 ML IV SCH (08:53)
[2020-09-23] MEDS: TACROLIMUS 0.5 MG (PROGRAF) CAP NON-FORMULARY OG SCH ×2 (08:53→17:49)
[2020-09-23] MEDS: PANTOPRAZOLE 40 MG (PROTONIX) VIAL IV SCH (08:53)
[2020-09-23] MEDS: fentaNYL INJECTION 100 MCG/2 ML AMP IVP PRN ×2 (08:54→11:52)
[2020-09-23] MEDS: ACETAMINOPHEN 500 MG TAB (TYLENOL) PO PRN (08:54)
[2020-09-23] MEDS: LINEZOLID IVPB 300 ML IV SCH ×2 (08:54→21:29)
[2020-09-23] MEDS: CARVEDILOL 12.5 MG (COREG) TABLET PO SCH ×2 (08:57→17:45)
[2020-09-23] MEDS: MYCOPHENOLATE OG SCH ×6 (09:06→21:54)
[2020-09-23] MEDS: ENOXAPARIN 80 MG/0.8 ML (LOVENOX) SYR SC SCH (09:07)
[2020-09-23 10:12] LABS: CALCIUM 6.8 MG/DL (8.5-10.1); CREATININE SERUM 0.97 MG/DL (0.60-1.30); POTASSIUM 3.7 MMOL/L (3.6-5.0)
--- NOTE | 2020-09-23 10:13 | Physical Therapy Progress Note ---
Therapy Progress Note No PROM per RN due to patient's current status. SOPHIA LUCAS PT Sep 23, 2020 10:13
[2020-09-23] MEDS ORDERED: NS IV 1000 ML 1,000 ML ONE (13:00)
--- NOTE | 2020-09-23 13:19 | Anesthesia-Procedure Note ---
Procedures/Interventions Procedure Start/Stop/Diagnosis Date of Procedure: Sep 23, 2020 Start Time: 13:00 Stop Time: 13:10 Arterial Line Arterial Line Catheter: 22G Type: Brachial Location: Right Procedure: prepped, draped in sterile fashion, good wave-form was obtained, patient tolerated procedure well, no immediate complications, post procedure area cleaned, post procedure dressing applied SHAUN EDWARDS CRNA Sep 23, 2020 13:19
[2020-09-23] MEDS ORDERED: fentaNYL DRIP PRE-MIX 250 ML IV ONE (13:48)
[2020-09-23] MEDS: AMIODARONE INJECTION 450 MG in D5W IV SOLUTION (EXCEL) 250 ML IV SCH (14:07)
--- NOTE | 2020-09-23 14:50 | NUR ---
During care rounds, it was noted that TF of [facility] at 15ml/hr with 25ml free water flushes q4h was initiated earlier this day. Would recommend maintaining current rate this time. Will continue to follow and reassess as pt needs, intake, and status change. Lc Berger, MS RD LD [phone] (cell)
--- NOTE | 2020-09-23 15:50 | Progress Note - Hospitalist ---
Subjective HPI/CC On Admission Date Seen by Provider: Sep 23, 2020 Time Seen by Provider: 15:44 Subjective/Events-last exam Pt remains intubated and sedated. No ROS possible. RN states oxygenation has improved slightly but on very high vent settings still. Focused Exam Lactate Level 09/23/20 06:45: Lactic Acid Level 5.66*H 09/23/20 09:50: Lactic Acid Level 3.73*H 09/23/20 12:00: Lactic Acid Level 3.65*H Lactic Acid Level Laboratory Tests Test 09/23/20 12:00 Lactic Acid Level 3.65 MMOL/L (0.50-2.00) *H Objective Exam Vital Signs Vital Signs Date Time Temp Pulse Resp B/P (MAP) Pulse Ox O2 Delivery O2 Flow Rate FiO2 09/23/20 15:42 77 107/72 09/23/20 15:21 31 96 100 09/23/20 15:00 37.4 Mechanical Ventilator 75.00 Capillary Refill : Less Than 3 Seconds General Appearance: Chronically ill, Other (sedated, on vent) HEENT: Other (OGT/ETT) Respiratory: Other (on vent, decreased breath sounds) Cardiovascular: Regular Rate, Rhythm, No Murmur Gastrointestinal: Normal Bowel Sounds, Non Tender, Soft Extremity: Pedal Edema, Other (extremities cool to touch) Neurologic/Psychiatric: Other (sedated, appears comfortable) Results/Procedures Lab Laboratory Tests 09/23/20 03:25 09/23/20 09:50 Patient resulted labs reviewed. Assessment/Plan Assessment and Plan Assess & Plan/Chief Complaint Acute respiratory failure secondary to COVID-19 Pneumothorax s/p CODE BLUE 09/22/20 Cardiogenic shock -09/21- pt was intubated secondary worsening respiratory failure. -Coded in CT 09/22, large pneumothorax noticed, concerned it was tension and CT placed immediately 09/22 -Pt does not meet Sublette's criteria for Remdesivir (symptom onset within 10days) -s/p CVP -Lovenox theraputic dosing -Back on pressors PNA -09/20 Continue Merrem, zyvox and Eraxis -MRSA swab is negative -Wong cultures negative from 09/16 Acute on chronic renal failure with hx of renal transplant -Monitor - home anti-rejection meds -- UOP right on cusp but adequate at this time Hyperglycemia - SSI -Monitor - Adding levemir Hypertension -PRN Labetalol -Coreg DVT/GI ppx -continue lovenox - Protonix Dispo: I discussed with patient's and his niece, Dr Cuba, in 's room in [facility] about prognosis. Informed him that she is till very sick and prognosis is guarded but will continue with all current measures. Discussed goals of care if heart stops again and agreed that CPR would likely be futile and if ROSC obtained patient would likely suffer severe anoxic brain inju ry. He states that her previously stated wishes were that that would not be a desired outcome and agreed to DNR status. This was placed. Answered all of Mr Hagen' questions to the best of my ability. Critical Care Critically Ill Patient Clinical Quality Measures DVT/VTE Risk/Contraindication: Risk Factor Score Per Nursin RFS Level Per Nursing on Admit: 4+=Very High NOLAN RUEDA MD Sep 23, 2020 15:50
[2020-09-23] MEDS ORDERED: inSUlin ASPART (NovoLOG) 1 UNIT/0.01 ML (CHARGE PER UNIT) SC SCH (18:00)
--- NOTE | 2020-09-23 18:57 | NUR ---
SPOKE WITH PATIENTS DAUGHTER VIA TELEPHONE, UPDATED ON PATIENT CONDITION AND ANSWERED ALL QUESTIONS. ALSO SPOKE WITH E-ICU REGARDING LOW URINE OUTPUT, SEE EMAR FOR ORDERS.
[2020-09-23] MEDS ORDERED: ALBUMIN 25% 25 GM/100 ML 100 ML IV ONE ×2 (19:00)
[2020-09-23 20:35] LABS: CALCIUM 7.4 MG/DL (8.5-10.1); CREATININE SERUM 1.4 MG/DL (0.60-1.30); POTASSIUM 4.6 MMOL/L (3.6-5.0)
[2020-09-23] MEDS ORDERED: ENOXAPARIN 80 MG/0.8 ML (LOVENOX) SYR SC SCH (21:00)
[2020-09-23] MEDS ORDERED: ENOXAPARIN 40 MG/0.4 ML (LOVENOX) SYR SC SCH (21:00)
[2020-09-23] MEDS ORDERED: inSUlin ASPART (NovoLOG) 1 UNIT/0.01 ML (CHARGE PER UNIT) ONE (21:20)
--- NOTE | 2020-09-23 22:00 | NUR ---
CALLED E-ICU TO CLARIFY INSULIN ORDER. RECEIVED ORDER FROM DR. ARREOLA TO GIVE 18 UNITS LEVEMIR NOW IN ADDITION TO THE 17 UNITS OF NOVOLOG ALREADY RECEIVED.
[2020-09-24] VITALS (28 sets, daily range): BP systolic 87–158; BP diastolic 50–77
[2020-09-24] MEDS: inSUlin ASPART (NovoLOG) 1 UNIT/0.01 ML (CHARGE PER UNIT) SC SCH ×6 (01:12→20:29)
[2020-09-24] MEDS: PROPOFOL DRIP (ICU) 100 ML IV SCH ×4 (01:12→23:35)
[2020-09-24] MEDS: RT-ALBUTEROL INHALER HFA (VENTOLIN HFA) 18 GM IH SCH ×6 (01:37→21:44)
[2020-09-24] MEDS: fentaNYL DRIP PRE-MIX 250 ML IV SCH ×3 (02:50→22:19)
[2020-09-24] MEDS ORDERED: fentaNYL DRIP PRE-MIX 250 ML IV ONE (02:50)
[2020-09-24] MEDS: LACTATED RINGERS 1,000 ML IV SCH ×3 (03:54→17:50)
[2020-09-24 04:07] LABS: ABG BASE EXCESS -5.5 MMOL/L (-2.5-2.5); ABG OXYGEN SATURATION 97 % (94-100); ABG PCO2 40 MMHG (35-45); ABG PO2 97 MMHG (79-93); ABG TCO2 21.1 MMOL/L (21.0-31.0)
[2020-09-24 04:10] LABS: ALLENS TEST ARTLINE; INSPIRED O2 100; PATIENT TEMP 36.2; VENTILATOR YES
[2020-09-24 04:12] LABS: ABG PH 7.31 (7.37-7.43)
[2020-09-24 04:35] LABS: POTASSIUM 4.3 MMOL/L (3.6-5.0)
[2020-09-24 04:36] LABS: CALCIUM 7.1 MG/DL (8.5-10.1)
[2020-09-24 04:40] LABS: PHOSPHORUS 4.4 MG/DL (2.3-4.7)
[2020-09-24 04:41] LABS: CREATININE SERUM 1.27 MG/DL (0.60-1.30)
[2020-09-24 04:42] LABS: BASOPHILS # (AUTO) 0.1 10^3/uL (0.0-0.1); BASOPHILS % (AUTO) 0 % (0-10); EOSINOPHILS % (AUTO) 0 % (0-10); HEMATOCRIT 25 % (35-52); HEMOGLOBIN 8.4 g/dL (11.5-16.0); LYMPHOCYTES # (AUTO) 8.2 10^3/uL (1.0-4.0); LYMPHOCYTES % (AUTO) 18 % (12-44); MEAN CORPUSCULAR HEMOGLOBIN 29 pg (25-34); MEAN CORPUSCULAR HGB CONC 34 g/dL (32-36); MEAN CORPUSCULAR VOLUME 85 fL (80-99); MEAN PLATELET VOLUME 11.8 fL (9.0-12.2); MONOCYTES % (AUTO) 4 % (0-12); NEUTROPHILS # (AUTO) 30.7 10^3/uL (1.8-7.8); NEUTROPHILS % (AUTO) 66 % (42-75); PLATELET COUNT 170 10^3/uL (130-400)
[2020-09-24 05:11] LABS: ATYPICAL LYMPHOCYTES 9 %; BAND NEUTROPHILS 6 %; BLAST CELLS 1 %; LYMPHOCYTES % (MANUAL) 18 %; MONOCYTES % (MANUAL) 6 %; NEUTROPHILS % (MANUAL) 60 %
[2020-09-24 05:12] LABS: RBC MORPH NORMAL; SMUDGE CELLS MOD
[2020-09-24] MEDS: POTASSIUM CL 10MEQ/50ML IVPB 50 ML IV SCH (05:12)
[2020-09-24] MEDS: KCL 20 MEQ TAB (K-DUR) PO SCH (05:13)
[2020-09-24] MEDS: MAGNESIUM 1 GM/100 ML IVPB 100 ML IV SCH (05:13)
[2020-09-24] MEDS: MEROPENEM 1,000 MG in WATER (STERILE) FOR INJECTION 20 ML IV SCH ×2 (05:24→17:47)
[2020-09-24] MEDS: NOREPINEPHRINE 4 MG/250 ML 250 ML IV SCH (06:45)
[2020-09-24] MEDS: CARVEDILOL 12.5 MG (COREG) TABLET PO SCH ×2 (07:28→17:33)
[2020-09-24] MEDS: [UNRECOGNIZED DRUG - OTHER] PO SCH (07:32)
[2020-09-24] MEDS: LINEZOLID IVPB 300 ML IV SCH ×2 (08:36→20:29)
[2020-09-24] MEDS: AMIODARONE INJECTION 450 MG in D5W IV SOLUTION (EXCEL) 250 ML IV SCH (08:36)
[2020-09-24] MEDS: PANTOPRAZOLE 40 MG (PROTONIX) VIAL IV SCH (08:36)
[2020-09-24] MEDS: TACROLIMUS 0.5 MG (PROGRAF) CAP NON-FORMULARY OG SCH ×2 (08:36→17:48)
[2020-09-24] MEDS: MYCOPHENOLATE OG SCH ×6 (08:37→20:29)
[2020-09-24 08:51] LABS: HEMOGLOBIN 7.5 g/dL (11.5-16.0)
[2020-09-24] MEDS ORDERED: NS IV 500 ML 500 ML IV SCH ×2 (09:20→09:30)
--- NOTE | 2020-09-24 09:24 | Progress Note - Hospitalist ---
Subjective HPI/CC On Admission Date Seen by Provider: Sep 24, 2020 Time Seen by Provider: 09:19 Subjective/Events-last exam Pt remains intubated and sedated. No ROS possible. RN states increasing bloody output in chest tube overnight and this morning. Focused Exam Lactate Level 09/23/20 06:45: Lactic Acid Level 5.66*H 09/23/20 09:50: Lactic Acid Level 3.73*H 09/23/20 12:00: Lactic Acid Level 3.65*H Objective Exam Vital Signs Vital Signs Date Time Temp Pulse Resp B/P (MAP) Pulse Ox O2 Delivery O2 Flow Rate FiO2 09/24/20 08:00 36.7 82 22 109/60 (76) 98 Mechanical Ventilator 80.00 09/24/20 01:38 80 Capillary Refill : Less Than 3 Seconds General Appearance: Chronically ill, Obese, Other (intubated and sedated) Respiratory: Other (chest tube in place (bloody output noted), on vent decreased breath sounds, no crackles) Cardiovascular: No JVD, No Murmur, Irregularly Irregular (PVCs noted on telemetry) Gastrointestinal: Normal Bowel Sounds, Non Tender, Soft Neurologic/Psychiatric: Other (sedated, appears comfortable) Results/Procedures Lab Laboratory Tests 09/23/20 09:50 09/23/20 20:15 09/24/20 04:00 09/24/20 08:45 Patient resulted labs reviewed. Assessment/Plan Assessment and Plan Assess & Plan/Chief Complaint Acute respiratory failure secondary to COVID-19 Pneumothorax s/p CODE BLUE 09/22/20 Cardiogenic shock -Intubated on 09/21 -Coded in CT 09/22, large pneumothorax noticed, concerned it was tension and CT placed immediately 09/22 -Pt did not meet [place]'s criteria for Remdesivir (symptom onset within 10days) -s/p CVP -Lovenox theraputic dosing -Back on pressors - Chest tube with bloody increasing bloody output, repeat H&H down to 7.5 - 1 unit pRBCs ordered this AM - Hold Lovenox PNA -09/20 Continue Merrem, zyvox and Eraxis -MRSA swab is negative -Wong cultures negative from 09/16 Acute on chronic renal failure with hx of renal transplant -Monitor - home anti-rejection meds -- UOP right on cusp but adequate at this time at 0.49ml/kg/hr yesterday Hyperglycemia - SSI - Monitor -Levemir added last night Hypertension -PRN Labetalol -Coreg DVT/GI ppx -continue lovenox - Protonix Critical Care Critically Ill Patient Clinical Quality Measures DVT/VTE Risk/Contraindication: Risk Factor Score Per Nursin RFS Level Per Nursing on Admit: 4+=Very High NOLAN RUEDA MD Sep 24, 2020 09:24
[2020-09-24] MEDS: DexMEDEtomidine PRE MIX 100 ML IV SCH (09:39)
--- NOTE | 2020-09-24 10:07 | Diagnostic Imaging Report ---
INDICATION: Pneumonia. Comparison made with prior examination of 09/22/2020. FINDINGS: There is cardiomegaly. There are bilateral pulmonary infiltrates. No pleural effusion or pneumothorax. Lines and tubes are in satisfactory position. There is extensive subcutaneous edema, emphysema as well as pneumomediastinum and pericardium. Previously seen left pneumothorax is less apparent. IMPRESSION: Bilateral pulmonary infiltrates suspect for pneumonia. Pneumomediastinum and pneumopericardium and subcutaneous emphysema. Dictated by: Dictated on workstation # [id number]
[2020-09-24] MEDS: ANIDULAFUNGIN INJECTION 100 MG in NS (IVPB) 100 ML IV SCH (11:12)
[2020-09-24] MEDS: NOREPINEPHRINE 8 MG in NS (IVPB) 242 ML IV SCH ×3 (11:12→22:16)
--- NOTE | 2020-09-24 11:49 | Physical Therapy Progress Note ---
Therapy Progress Note Pt remains vented and sedated this date, will continue to follow and initiate therapy with medically appropriate. TRESSA BLACK PT Sep 24, 2020 11:49
--- NOTE | 2020-09-24 14:11 | NUR ---
NOTIFIED DR RUEDA AND [facility] OF NONSUSTAINED VTACH (ONLY 3 TO 4 BEATS AT THIS TIME BUT INCREASING). NO NEW ORDERS AT THIS TIME.
[2020-09-24] MEDS ORDERED: AMIODARONE INJECTION 450 MG in D5W IV SOLUTION (EXCEL) 250 ML IV SCH (16:00)
[2020-09-24 17:16] LABS: HEMOGLOBIN 8.7 g/dL (11.5-16.0)
[2020-09-24] MEDS ORDERED: ALBUMIN 25% 25 GM/100 ML 50 ML IV ONE (17:30)
[2020-09-24] MEDS ORDERED: ALBUMIN 25% 25 GM/100 ML 100 ML IV ONE (17:35)
[2020-09-24 21:54] LABS: WHITE BLOOD COUNT 42.5 10^3/uL (4.3-11.0)
[2020-09-25] VITALS (17 sets, daily range): BP systolic 74–125; BP diastolic 45–71
[2020-09-25] MEDS: inSUlin ASPART (NovoLOG) 1 UNIT/0.01 ML (CHARGE PER UNIT) SC SCH ×3 (01:05→09:33)
[2020-09-25] MEDS: RT-ALBUTEROL INHALER HFA (VENTOLIN HFA) 18 GM IH SCH ×3 (02:30→10:30)
--- NOTE | 2020-09-25 02:50 | NUR ---
TIMELINE- 0250-CALLED E-ICU AND INFORMED DR. ARREOLA THAT SINCE COMPLETING PATIENT'S LEFT CHEST TUBE DRESSING CHANGE PATIENT'S BLOOD PRESSURE HAS DROPPED AND CURRENTLY RUNNING 80/50 ON LEVO AT 0.5 MCG/KG/MIN, PATIENT APPEARS TO BE GOING IN AND OUT OF AFIB AND O2 IS MID 80'S ON 100% FIO2. RECEIVED ORDERS FOR STAT CHEST X-RAY, ABG, CBC AND TO BEGIN VASO. SEE EMAR FOR DETAILS. 324-CALLED DR. ARREOLA AND INFORMED HER THAT PATIENT'S BLOOD PRESSURE WAS NOT IMPROVING AFTER ADDING VASO. RECEIVED ORDER FOR 1 AMP BICARB. 0406-CALLED PATIENT'S FAMILY AND INFORMED THEM OF DETERIORATION IN PATIENT'S CONDITION. 4-CALLED DR. ARREOLA AND REPORTED CRITICAL LAB VALUES INCLUDING DECREASED HGB. RECEIVED ORDER TO TRANSFUSE ONE UNIT BLOOD AND ORDER FOR 1 AMP BICARB PRN FOR SYSTOLIC BP BELOW 90. 0500-MIDLINE IV AT BEDSIDE INSERTED.
[2020-09-25] MEDS ORDERED: VASOPRESSIN INJECTION 20 UNIT/ML VIAL ONE (02:54)
[2020-09-25] MEDS ORDERED: NS (IVPB) 100 ML ONE (02:55)
[2020-09-25] MEDS ORDERED: VASOPRESSIN INJECTION 20 UNIT in NS (IVPB) 100 ML IV SCH (03:00)
[2020-09-25] MEDS: NOREPINEPHRINE 8 MG in NS (IVPB) 242 ML IV SCH ×3 (03:00→13:07)
[2020-09-25] MEDS: LACTATED RINGERS 1,000 ML IV SCH (03:05)
[2020-09-25 03:16] LABS: ABG BASE EXCESS -8.9 MMOL/L (-2.5-2.5); ABG OXYGEN SATURATION 98 % (94-100); ABG PCO2 46 MMHG (35-45); ABG PO2 119 MMHG (79-93)
[2020-09-25 03:17] LABS: ABG PH 7.21 (7.37-7.43); ALLENS TEST ARTLINE; INSPIRED O2 100; PATIENT TEMP 37.3; VENTILATOR YES
[2020-09-25] MEDS ORDERED: SODIUM BICARB 8.4% 50 MEQ/50 ML VIAL ONE (03:29)
[2020-09-25] MEDS ORDERED: SODIUM BICARB 8.4% 50 MEQ/50 ML VIAL IV ONE (03:30)
[2020-09-25 03:46] LABS: POTASSIUM 4.9 MMOL/L (3.6-5.0)
[2020-09-25 03:47] LABS: CALCIUM 6.7 MG/DL (8.5-10.1)
[2020-09-25] MEDS: KCL 20 MEQ TAB (K-DUR) PO SCH (03:47)
[2020-09-25] MEDS: POTASSIUM CL 10MEQ/50ML IVPB 50 ML IV SCH (03:47)
[2020-09-25 03:51] LABS: PHOSPHORUS 5.1 MG/DL (2.3-4.7)
[2020-09-25 03:52] LABS: CREATININE SERUM 1.51 MG/DL (0.60-1.30)
[2020-09-25 03:54] LABS: MAGNESIUM 1.9 MG/DL (1.6-2.4)
[2020-09-25 03:58] LABS: HEMOGLOBIN 7.4 g/dL (11.5-16.0)
[2020-09-25 03:59] LABS: MEAN PLATELET VOLUME 12.3 fL (9.0-12.2)
[2020-09-25 04:12] LABS: WHITE BLOOD COUNT 51.7 10^3/uL (4.3-11.0)
[2020-09-25] MEDS ORDERED: NS IV 500 ML 500 ML IV SCH ×2 (04:21→04:30)
[2020-09-25] MEDS: SODIUM BICARB 8.4% 50 MEQ/50 ML VIAL IV PRN ×5 (04:35→09:00)
[2020-09-25] MEDS: MEROPENEM 1,000 MG in WATER (STERILE) FOR INJECTION 20 ML IV SCH (04:51)
[2020-09-25] MEDS: MAGNESIUM 1 GM/100 ML IVPB 100 ML IV SCH (05:21)
--- NOTE | 2020-09-25 05:25 | NUR ---
CALLED E-ICU AND INFORMED DR. ARREOLA THAT PATIENT'S CURRENT TEMP WAS 37.7. RECEIVED ORDER TO PROCEED WITH BLOOD ADMINISTRATION AND TREAT WITH TYLENOL.
[2020-09-25] MEDS: ACETAMINOPHEN 500 MG TAB (TYLENOL) PO PRN (05:34)
[2020-09-25] MEDS: fentaNYL DRIP PRE-MIX 250 ML IV SCH ×2 (06:23→11:23)
--- NOTE | 2020-09-25 06:55 | NUR ---
CALLED DR. RUEDA AND UPDATED HER ON PATIENT'S DETERIORATING CONDITION INCLUDING CURRENT VITAL SIGNS. 80/50'S BP, 106 HR, AND 85% O2. SHE WILL BE IN SOON TO SEE PATIENT.
--- NOTE | 2020-09-25 07:08 | Diagnostic Imaging Report ---
EXAM: CHEST 1 VIEW, AP/PA ONLY INDICATION: Cough. Respiratory failure. Hypotension. COVID positive. COMPARISON: 09/24/2020. FINDINGS: ETT tip midway between the level clavicles and fern. NG tube tip in the stomach. Left PICC tip lower SVC. Persistent dense airspace opacities throughout both lungs. There remains some subcutaneous emphysema in the base of the neck, improved since the prior exam. No large pleural effusion or pneumothorax is identified. IMPRESSION: 1. Support lines in the expected positions. 2. Persistent dense airspace opacities throughout both lungs. Dictated by: Dictated on workstation # [id number]
[2020-09-25] MEDS ORDERED: PHENYLEPHRINE INJ 10 MG/ML (FOR DRIP KITS ONLY) ONE ×2 (09:13→11:44)
[2020-09-25] MEDS ORDERED: NS (IVPB) 250 ML ONE ×2 (09:13→11:44)
[2020-09-25] MEDS: PHENYLEPHRINE INJECTION 10 MG in NS (IVPB) 250 ML IV SCH ×2 (09:15→11:50)
[2020-09-25] MEDS: PANTOPRAZOLE 40 MG (PROTONIX) VIAL IV SCH (09:24)
[2020-09-25] MEDS: ANIDULAFUNGIN INJECTION 100 MG in NS (IVPB) 100 ML IV SCH (09:31)
[2020-09-25] MEDS: CARVEDILOL 12.5 MG (COREG) TABLET PO SCH (09:31)
[2020-09-25] MEDS: LINEZOLID IVPB 300 ML IV SCH (09:32)
[2020-09-25] MEDS: TACROLIMUS 0.5 MG (PROGRAF) CAP NON-FORMULARY OG SCH (09:33)
[2020-09-25] MEDS: DexMEDEtomidine PRE MIX 100 ML IV SCH (09:34)
[2020-09-25] MEDS: MYCOPHENOLATE OG SCH ×3 (11:50)
[2020-09-25] MEDS ORDERED: morphine INJ 4 MG/ML 1 ML (VIAL/SYRINGE) IV PRN (14:00)
[2020-09-25] MEDS ORDERED: LORazepam INJ 2 MG/ML (ATIVAN) VIAL IVP PRN (14:00)
[2020-09-25] MEDS ORDERED: BISACODYL 10 MG SUPP (DULCOLAX) PR PRN (14:00)
[2020-09-25] MEDS ORDERED: GLYCOPYRROLATE 0.2 MG/ML (ROBINUL) 2 ML VIAL IV PRN (14:00)
[2020-09-25] MEDS ORDERED: ACETAMINOPHEN 650 MG SUPP (TYLENOL) PR PRN (14:00)
[2020-09-25] MEDS ORDERED: LORazepam ORAL CONCENTRATE 2 MG/ML 30 ML (ATIVAN) PO PRN (14:00)
[2020-09-25] MEDS ORDERED: PROMETHAZINE INJ 25 MG/ML (PHENERGAN) AMP IVP PRN (14:00)
[2020-09-25] MEDS ORDERED: morphine (ROXINOL) 10 MG/0.5 ML oral conc 0.5 ML PO PRN (14:00)
[2020-09-25] MEDS ORDERED: SCOPOLAMINE 1.5 MG (TRANSDERM-SCOP) PATCH TOP SCH (14:00)
[2020-09-25] MEDS ORDERED: ARTIFICAL TEARS 0.4 ML UNIT DOSE (REFRESH PLUS) OU PRN (14:00)
[2020-09-25] MEDS ORDERED: RT-ALBUTEROL/IPRATROPIUM 3 ML (DUONEB) VIAL INH PRN (14:00)
[2020-09-25] MEDS ORDERED: SALIVA STIMULANT MOUTH SPRAY (BIOTENE) 1.5 OZ MM PRN (14:00)
[2020-09-25] MEDS ORDERED: ATROPINE 1% OPHTHALMIC SOLN 2 ML SL PRN (14:00)
[2020-09-25] MEDS ORDERED: ONDANSETRON 4 MG/2 ML (SDV) Z0FRAN IVP PRN (14:00)
--- NOTE | 2020-09-25 15:29 | Discharge Summary ---
Discharge Summary Date of Admission Sep 14, 2020 at 13:51 Date of Discharge Comfort Measures/ End of Life Care: Comfort Measures NOLAN RUEDA MD Sep 25, 2020 15:29
--- NOTE | 2020-09-25 15:36 | NUR ---
Patient family at bedside. Dr Scott updated on families wishes for comfort care, pastoral care notified. 1405 - patient taken off of ventilator 1419 - Patient pronounced by 2 RNs DORA Lyman and DORA Guadarrama. [facility] called. Dip Painter notified. - Dr Curran.
[2020-09-25 20:41] LABS: WHITE BLOOD COUNT 46.5 10^3/uL (4.3-11.0)
== END 2020-09-25 14:19 | disposition expired | DRG 207 ==
LOC: EDUNIT# 12:16 → ER 12:17 → 4TH 13:51 → ICU 09-15 00:08
PROVIDERS: ADMIT Family Medicine; ATTEND Family Medicine
PROC: XW13325 Transfusion of Convalescent Plasma (Nonautologous) into Peripheral Vein, Percutaneous Approach, New Technology Group 5 (ICD-10-PCS; principal; 2020-09-15)
PROC: 5A1955Z Respiratory Ventilation, Greater than 96 Consecutive Hours (ICD-10-PCS; 2020-09-21)
PROC: 0BH17EZ Insertion of Endotracheal Airway into Trachea, Via Natural or Artificial Opening (ICD-10-PCS; 2020-09-21)
PROC: 02HV33Z Insertion of Infusion Device into Superior Vena Cava, Percutaneous Approach (ICD-10-PCS; 2020-09-23)
DX: U07.1 COVID-19 (principal); J96.01 Acute respiratory failure with hypoxia; J12.89 Other viral pneumonia; N17.9 Acute kidney failure, unspecified; Z94.0 Kidney transplant status; E87.2 Acidosis; E86.0 Dehydration; I12.9 Hypertensive chronic kidney disease with stage 1 through stage 4 chronic kidney disease, or unspecified chronic kidney disease; N18.9 Chronic kidney disease, unspecified; E11.65 Type 2 diabetes mellitus with hyperglycemia; E78.5 Hyperlipidemia, unspecified; M10.9 Gout, unspecified; E89.2 Postprocedural hypoparathyroidism; E66.9 Obesity, unspecified; Z68.30 Body mass index [BMI] 30.0-30.9, adult; Z86.39 Personal history of other endocrine, nutritional and metabolic disease
CPT/HCPCS: 36415; 36569; 51702; 71045; 71046; 71250; 76937; 80048; 80053; 81000; 82010; 82805; 82962; 83605; 83735; 83880; 84100; 84145; 84478; 84484; 85007; 85014; 85018; 85025; 85027; 85379; 86141; 86850; 86900; 86901; 86920; 87040; 87070; 87081; 87205; 93005; 94002; 94003; 94640; 94660; 94799; 96361; 96374; 96375; 96376